=== PATIENT | male | born 1945 | race African-American/Black ===

== ENCOUNTER 2017-03-15 05:15 | Inpatient (IN) ==
[2017-03-15 06:43] LABS: Basophils % 0.2 % (0.0-0.8); Immature Granulocytes % 0.6 %; Lymphocytes # 0.9 10*3/uL (1.4-4.0); Lymphocytes % 4.9 % (21.2-54.2); Mean Corpuscular HGB Conc 34.4 GM/DL (32-36); Mean Corpuscular Hemoglobin 32 PG (27-34); Mean Platelet Volume 9.4 FL (9.6-12.0); Monocytes # 1.2 10*3/uL (0.11-0.8); Monocytes % 6.5 % (1.7-12.7); Neutrophils # 15.5 10*3/uL (1.4-7.4); Neutrophils % 87.8 % (38.7-73.9); Platelet Count 361 T/CUMM (130-400); Red Blood Count 3.48 MC/CUMM (3.8-5.5); Red Cell Distribution Width 13.4 % (9.3-17.3); White Blood Count 17.6 T/CUMM (4-12)
--- NOTE | 2017-03-15 07:01 | XRay Report ---
XR chest 1V portable Indication: Shortness of breath, fever Comparison: None available Findings: The heart and mediastinum are normal in size and configuration. The pulmonary vascularity is normal in caliber. Lung volumes are increased with prominent bronchial markings. No lung infiltrates, effusions, pneumothorax or other abnormality is demonstrated. Impression: Chronic lung changes. No acute process. PROCEDURE INTERPRETED AT [facility] DEPARTMENT OF RADIOLOGY Final Report Signed by: Dr. Dillon Carlisle
--- NOTE | 2017-03-15 07:03 | XRay Report ---
XR foot 2V LT Indication: Gangrene second digit Comparison: None available Findings: Detail limited from osteopenia. No evidence of fracture seen. The alignment of the joints appears normal. No degenerative change is present. No soft tissue abnormality is seen. Impression: No definite evidence of abnormality demonstrated PROCEDURE INTERPRETED AT [facility] DEPARTMENT OF RADIOLOGY Final Report Signed by: Dr. Dillon Carlisle
[2017-03-15 07:15] LABS: Band Neutrophils 1 % (0-10); Hypochromasia 1+; Lymphocytes 5 % (20-55); Microcytosis Slight; Platelet Estimate Normal; Segmented Neutrophils 90 % (50-85); Total Cells Counted 100
[2017-03-15 07:18] LABS: Albumin 2.9 G/DL (3.4-5.0); Bilirubin,Total 2.9 MG/DL (0.2-1.0); Calcium 9.6 MG/DL (8.5-10.1); Osmolality,Calculated 266.7 MOS/KG (273-304); Potassium 4.7 MMOL/L (3.5-5.1); Total Protein 8.2 G/DL (6.4-8.3)
[2017-03-15] MEDS ORDERED: ONDANSETRON 4 MG/2 ML VIAL IV PRN (07:32)
[2017-03-15 08:00] LABS: Risk Ratio 4.44
--- NOTE | 2017-03-15 08:38 | Emergency Department Note ---
Candelario Villela Manpreet, am scribing for, and in the presence of, Devante Frye MD 06:46. Melva Villela Phillip K, MD, personally performed the services described in this documentation, ascribed by Rocky Palomino in my presence, and it is both accurate and complete [id number] . Arrival - Arrival Chief Complaint: Wound/Laceration Stated Complaint: leg and foot. ED Nursing Triage Note: Pt to triage with complaint of wound to lower left leg and infection to 2nd toe on left foot. Pt states that he has been being treating at the [facility] and pt states that they are not doing any good. Pt states that he has been having pain to areas. Toe is noted to be black at time of triage. + pedal pulse noted. Mode of Arrival: Wheelchair Limitations: No Limitations Source: Patient - History of Present Illness HPI Narrative: Pt is a 71 y/o male, with PMHx of HTN and NIDDM, who presents to the ED with CC of wound to left leg and infection to the 2nd toe on the left foot that began August. Pt had a by pass on his right leg in August from which the clamps came off. Pt has no PCP and is being treated at the [facility]. Pt c/p pain to the affected areas and his toe is noted to be black. Pt denies any fever, chills, or Abd pain. No other pains/complaints reported to the ED. Onset (ago): week(s) Consistency: constant Severity: moderate Quality: aching Allergies/Adverse Reactions: Allergies Allergy/AdvReac Type Severity Reaction Status Date / Time rosuvastatin Allergy Unknown Verified 12/07/16 16:29 Home Medications: Home Medications Medication Instructions Recorded Confirmed Type Unable To Obtain [Unable to Obtain] 03/15/17 03/15/17 History Review of System - Review of System 12 point system: reviewed and no additional remarkable complaints except as stated - Review of System Constitutional: Absent: chills, diaphoresis, fever Head/Ears/Nose/Throat: Absent: sore throat Respiratory: Absent: cough, respiratory distress, wheezing Cardiovascular: Absent: chest pain Gastrointestinal: Absent: abdominal pain, nausea, vomiting Skin: Present: other (Wound to left lower leg and infection to second toe on left foot) Neurological: Absent: headache, weakness Medical,Surgical,& Family Hx - Medical History Cardio: History of: Hypertension Endocrine: History of: Diabetes Mellitus (NIDDM) - Social History Smoking Status: Never smoker Frequency of Alcohol Use: None Type of Drug Use: None Exam Vital Signs: Vital Signs Temperature 99.7 F H 03/15/17 05:26 Pulse Rate 107 H 03/15/17 05:26 Respiratory Rate 20 03/15/17 05:26 Blood Pressure 167/84 03/15/17 05:26 O2 Sat by Pulse Oximetry 98 03/15/17 05:26 - General General appearance: alert, in no apparent distress - Head Head exam: Present: atraumatic, normocephalic, normal inspection - Eye Eye exam: Present: normal appearance, PERRL, EOMI - ENT ENT exam: Present: normal exam, normal oropharynx, mucous membranes moist, TM's normal bilaterally - Neck Neck exam: Present: normal inspection, full ROM, trachea midline. Absent: tenderness, thyromegaly - Chest Chest inspection: Present: normal inspection, symmetric chest wall rise. Absent : tenderness - Respiratory Respiratory exam: Present: normal lung sounds bilaterally. Absent: accessory muscle use, rales, respiratory distress - Cardiovascular Cardiovascular exam: Present: normal rhythm, tachycardia, normal heart sounds. Absent: murmur, rubs, gallop - Abdominal Exam Abdominal exam: Present: soft, normal bowel sounds. Absent: distention, tenderness, diminished bowel sounds - Extremities Exam Extremities exam: Absent: normal inspection - Expanded Lower Left Lower Lower leg exam: Present: other (Eschar on left lower leg at medial aspect) Foot/toe exam: Present: other (Gangrene on second toe on left foot, Swollen left foot). Absent: normal inspection - Back Exam Back exam: Present: normal inspection, full ROM. Absent: tenderness - Neurological Exam Neurological exam: Present: alert, oriented X3, CN II-XII intact, reflexes normal - Psychiatric Psychiatric exam: Present: normal affect, normal mood - Skin Skin exam: Present: warm, dry, intact, normal color. Absent: pallor Course Course Narrative: Patient discussed with the hospitalist who will admit for IV antibiotics and surgery consult. Results - Labs CBC & BMP: 03/15/17 06:28 03/15/17 06:28 Lab Results: I have reviewed the patients labs Labs: Laboratory Tests 03/15/17 03/15/17 06:28 06:28 WBC 17.6 H RBC 3.48 L Hgb 11.0 L Hct 32.0 L MCV 92.0 MCH 32 MCHC 34.4 RDW 13.4 Plt Count 361 MPV 9.4 L Neut % (Auto) 87.8 H Lymph % (Auto) 4.9 L Neut # (Auto) 15.5 H Lymph # (Auto) 0.9 L Ransom # (Auto) 1.2 H Segmented Neutrophils 90 H Lymphocytes 5 L Sodium 131 L Potassium 4.7 Chloride 97 L Carbon Dioxide 25 Anion Gap 13.7 BUN 21 H Creatinine 0.90 GFR Calculation 112 BUN/Creatinine Ratio 23.00 H Glucose 128 H Calculated Osmolality 266.7 L Calcium 9.6 Total Bilirubin 2.90 H AST 49 H ALT 19 Alkaline Phosphatase 100 Total Protein 8.2 Albumin 2.9 L Globulin 5.3 H Albumin/Globulin Ratio 0.5 L - Diagnostic Findings Procedure: Chest x-ray: report reviewed by me (Chronic lung changes. No acute process.), X-ray: report reviewed by me (X-ray Foot: No definite evidence of abnormality demonstrated.) Disposition Clinical Impression: Gangrene left second toe, Cellulitis of left lower leg Case discussed with: patient Disposition: Still a Patient Condition: Guarded Additional Instructions: Admit to the hospitalist
[2017-03-15] MEDS ORDERED: CLINDAMYCIN INJ 600 MG in PREMIX 1 EACH IV SCH (09:00)
--- NOTE | 2017-03-15 09:25 | Hospitalist History & Physical ---
<Natacha Monahanda - Last Filed: 03/15/17 09:10> Assessment and Plan (1) Diabetes Status: Acute Assessment and plan: Hemoglobin A1c is noted at 6.7. The patient reports that he currently takes medications however at the time presentation the patient was unable to recall nor had his medications on his person at that time. We will start Accu-Cheks with sliding scale coverage and provide supportive care. Current Visit: Yes Qualifiers: Diabetes mellitus complication detail: with unspecified neuropathy (2) Hypertension Status: Acute Assessment and plan: We will monitor blood pressure closely during the clinical encounter. The patient reports that he is currently on medications for his hypertension however he was unable to recall nor had medications on his person at the time of presentation. We will start low-grade calcium channel gaurav and monitor closely. Current Visit: Yes (3) Cellulitis of left lower leg Status: Acute Assessment and plan: The patient has a large area of eschar noted to the lateral aspect of the left lower leg. In addition, the second digit on the left foot is gangrenous. Pulses are present per Doppler. We have requested a surgical consultation to evaluate. We will obtain wound cultures and start empiric antibiotic coverage. Current Visit: Yes History of Present Illness Chief complaint: Left leg and foot wound History of present illness: This is a chronically ill 71-year-old male that presented to the ED at [facility] this morning for the evaluation of a left leg and foot wound. The patient has a medical history significant for hypertension, non- insulin-dependent diabetes mellitus, and peripheral vascular disease. Patient has surgical history significant for femoral-popliteal bypass to the right leg. The patient reported the onset of symptoms in August of this year. He reported that he was being seen at the [facility] in [place] for the above complaint. He noticed several days prior to presentation that his second digit on his left foot had become deeply discoloration and eventually became painful. This prompted him to present to the ED for further evaluation. The patient was assessed at the time of ED presentation. Patient's blood pressure was noted at 167/84. In addition the patient was mildly tachycardic with a heart rate of 107 and was experiencing a low-grade temperature with a temperature noted at 99.7. Labs were obtained which were significant for white blood cell count is 17.6, hemoglobin 11.0, hematocrit 32.0, sodium 131, BUN 21, glucose 128, hemoglobin A1c 7.0, total bilirubin 2.90, AST 49, albumin 2.9, and HDL cholesterol at 36. Chest x-ray reported chronic lung changes however no acute cardiopulmonary processes were noted. X-ray of the right foot was obtained which was essentially unremarkable for any definitive evidence of abnormality. After brief discussion with both Dr. Blake and , the patient will be admitted to the hospitalist service for continuation of care. Due to the severity of the presenting left leg wound, a surgical evaluation has been requested to evaluate and assist during the clinical encounter. At the time of ED presentation, the patient reported no home medications therefore no home medications have been reconciled. The patient's CODE STATUS has been reviewed and discussed; the patient is a FULL CODE. Home Medications Medication Instructions Recorded Confirmed Type Unable To Obtain [Unable to Obtain] 03/15/17 03/15/17 History Allergies Allergy/AdvReac Type Severity Reaction Status Date / Time rosuvastatin Allergy Unknown Verified 12/07/16 16:29 Medical,Surgical,& Family Hx - Medical History Cardio: History of: Hypertension Endocrine: History of: Diabetes Mellitus (NIDDM) - Social History Smoking Status: Never smoker Frequency of Alcohol Use: None Type of Drug Use: None Exam - Constitutional Vitals: Period Temp Pulse Resp BP Sys/Cho Pulse Ox Last 24 Hr 99.7 F-99.7 F 94-107 18-20 167-191/66-84 97-99 General appearance: normal weight, no acute distress - Head Head exam: Present: normal inspection, normocephalic, atraumatic - Eye Eye exam: Present: EOMI. Absent: conjunctival injection Pupils: Present: NANETTE, normal accommodation - ENT ENT exam: Present: normal exam, normal external ear exam, normal oropharynx - Neck Neck exam: Present: normal inspection. Absent: lymphadenopathy, meningismus, thyromegaly - Respiratory Respiratory exam: Present: clear to auscultation bilaterally. Absent: rales, rhonchi, stridor, wheezes - Cardiovascular Cardiovascular exam: Present: regular rate and rhythm. Absent: carotid bruit, diastolic murmur, gallop, JVD, systolic murmur, other - GI/Abdominal GI/Abdominal exam: Present: normal bowel sounds, soft. Absent: tenderness - Extremities Exam Extremities exam: Present: edema (+2 edema noted to the left lower), other ( Eschar noted to the left lower leg gangrene noted to the; second digit on left foot) - Expanded Left Lower Neuro vascular tendon exam: Present: no vascular compromise - Back Exam Back exam: Present: normal inspection - Neurological Exam Neurological exam: Present: alert, oriented X3, CN II-XII intact - Psychiatric Psychiatric exam: Present: normal affect, normal mood - Skin Skin exam: Present: normal color, warm, dry Results - Labs CBC & BMP: 03/15/17 06:28 03/15/17 06:28 Lab Results: I have reviewed the past 24 hour labs <Shonda Hyatt - Last Filed: 03/15/17 13:31> History of Present Illness History of present illness: Mr. Roberson is a 71 year old male with a history of PVD,DM and HTN who presents with a left leg cellulitis and toe gangrene.Surgery has been consulted. I suspect patient may need some amputation but will defer to surgery.Liver USS showed Cholelithiasis with minimal gallbladder wall thickening which could be related to cholecystitis, patient is asymptomatic so I feel his leg should be addressed first. Patient was seen, examined and discussed with the [employer]PER[employer],I will add IV Vanc and dc clindamycin and continue Zosyn. Tight sugar control, follow Surgery's recommendations. Exam - Constitutional Vitals: Period Temp Pulse Resp BP Sys/Cho Pulse Ox Last 24 Hr 99.5 F-99.7 F 94-107 18-20 154-191/66-84 96-99 Results - Labs CBC & BMP: 03/15/17 06:28 03/15/17 06:28
[2017-03-15] MEDS: SODIUM CHLORIDE 0.9% 1,000 ML IV SCH ×2 (09:33→22:42)
[2017-03-15] MEDS: MORPHINE 2 MG/1 ML SYRINGE IV PRN ×2 (10:48→21:19)
[2017-03-15] MEDS: PIPERACILLIN/TAZOBACTAM 3,375 MG in SODIUM CHLORIDE 0.9% 100 ML IV SCH ×2 (10:49→19:17)
--- NOTE | 2017-03-15 12:23 | Ultrasound Report ---
Exam: US liver Date: 03/15/2017 9:45 AM Comparison: None Indication: Elevated liver function tests Technique:[Multiple transabdominal real-time scans were obtained of the right upper quadrant. Color-flow scans obtained. Ultrasound images were captured and stored.] Findings: Hyperechoic foci in the gallbladder with posterior acoustical shadowing. Some the findings did not appear to move during the exam. The wall of the gallbladder measures 3 mm. CBD measures 4.8 mm with minimally dilated intrahepatic ducts. Right kidney measures 133 mm in length with no hydronephrosis. 35 x 30 x 26 mm midpole simple appearing renal cyst. The visualized pancreas and aorta have an unremarkable appearance. Color-flow documented in the IVC with the aortic bifurcation obscured by bowel gas. Impression: Cholelithiasis with minimal gallbladder wall thickening which could be related to cholecystitis. Biliary scan with ejection fraction may be helpful for further evaluation. CBD is normal in size but some of the intrahepatic ducts appear minimally dilated. ERCP may be helpful for further evaluation. 35 mm simple appearing right midpole renal cyst. PROCEDURE INTERPRETED AT [facility] DEPARTMENT OF RADIOLOGY Final Report Signed by: Dr. Tram Quintero
--- NOTE | 2017-03-15 14:36 | General Surgery Consult Note ---
Assessment and Plan - Time spent with patient Time spent with patient: Greater than 30 minutes (1) Peripheral vascular disease Status: Acute Current Visit: Yes (2) Gangrene of the left lower extremely Status: Acute Assessment and plan: 71-year-old -Niue[place] male with history of diabetes, hypertension, peripheral vascular disease admitted by the hospitalists on 03/15/2017 with increasing pain and difficulty ambulating on his left lower extremity. Patient has dry gangrene of the left second toe and medial calf. There are no signs of infection. Will check ABIs and compare to the ones done in October pre-bypass. Do not recommend surgery at this time because it may worsen and increase his risk for amputation. Will consult physical therapy for gait assessment for assistive device. Also recommend pain control for now. Recommend sending the patient back to his vascular surgeon at [facility] for follow-up. Patient has also been found to have a recent lung mass and liver nodules which could be the reason for his elevated bilirubin. Patient has no abdominal pain, nausea or vomiting that would elicit cholecystectomy. Dr. Montejo has seen and examined patient and will continue to follow. Current Visit: Yes (3) Lung mass Status: Acute Current Visit: Yes (4) Liver nodule Status: Acute Current Visit: Yes (5) Total bilirubin, elevated Status: Acute Current Visit: Yes (6) Diabetes Status: Acute Current Visit: Yes Qualifiers: Diabetes mellitus complication detail: with unspecified neuropathy (7) Hypertension Status: Acute Current Visit: Yes History of Present Illness Chief complaint: Left leg pain History of present illness: Mr. Roberson is a 71 year old -[place]ue[place] male with history of diabetes, hypertension, and PVD admitted by the hospitalist service on 03/15/2017 with left lower extremity pain. Patient was found to have some necrosis to the medial calf and dry gangrene to left second toe. His WBCs are 17.6, and he is also found to have elevated total bilirubin of 2.9. Foot x-ray shows no evidence of abnormality. Liver ultrasound done shows cholelithiasis with minimal gallbladder wall thickening, common bile duct is normal size but intrahepatic ducts minimally dilated. Patient's medical records were reviewed and he had ABIs performed 10/19/2016 that showed aorto iliac and distal occlusive disease with severe loss of flow to both lower extremities. Patient was then referred to [facility] vascular surgeon Dr. Santiago, where he performed a left iliofemoral endarterectomy with patch angioplasty, left iliac stent, harvest of left greater saphenous vein, exploration left peroneal artery, and ligation of left SFA just distal to bifurcation on 11/08/2016. Patient was discharged on Coumadin, a baby aspirin, and Pletal. On patient's preoperative chest x-ray he was found to have a right lung mass. Patient underwent a CT of the chest in December that showed a 2 cm spiculated nodule in the right upper lobe of the lung, an ill-defined density in the right inguinal canal, diffuse gastric wall thickening, hypermetabolic activity in the parotid gland with all of these with questionable neoplasm. PET scan done in November shows the right lung mass along with 2 liver lesions. Patient is being followed at [facility] for this. Upon exam patient is only complaints are of his left lower extremity pain that is increased in the last week to where he is having difficulty walking. He has no complaints of nausea and vomiting, no complaints of abdominal pain, and his abdomen is benign on exam. Dr. Montejo has been consulted to evaluate the left lower extremity and the gallbladder. Home Medications Medication Instructions Recorded Confirmed Type Albuterol Inhaler [Proventil 2 puff INH DAILY 03/15/17 03/15/17 History Inhaler] Alfuzosin [Uroxatral] 10 mg PO QPM 03/15/17 03/15/17 History Atorvastatin [Lipitor] 10 mg PO DAILY 03/15/17 03/15/17 History Cilostazol 50 mg PO DAILY 03/15/17 03/15/17 History Finasteride 5 mg PO DAILY 03/15/17 03/15/17 History Gabapentin 600 mg PO Q8HR 03/15/17 03/15/17 History Hydrocodone/Acetaminophen 1 each PO BID PRN 03/15/17 03/15/17 History [Hydrocodon-Acetaminophn 10-325] Lisinopril 10 mg PO DAILY 03/15/17 03/15/17 History Omeprazole 20 mg PO DAILY 03/15/17 03/15/17 History Sildenafil Citrate [Viagra] 100 mg PO DAILY PRN 03/15/17 03/15/17 History Verapamil HCl [Verapamil ER Cap] 120 mg PO DAILY 03/15/17 03/15/17 History Warfarin [Coumadin] 10 mg PO DIRECTED 03/15/17 03/15/17 History Warfarin [Coumadin] 12.5 mg PO DIRECTED 03/15/17 03/15/17 History buPROPion HCl [Bupropion HCl Sr] 150 mg PO DAILY 03/15/17 03/15/17 History glipiZIDE [Glipizide] 5 mg PO DAILY 03/15/17 03/15/17 History Allergies Allergy/AdvReac Type Severity Reaction Status Date / Time rosuvastatin Allergy Unknown Verified 12/07/16 16:29 Medical,Surgical,& Family Hx - Medical History Cardio: History of: Hypertension Endocrine: History of: Diabetes Mellitus (NIDDM) - Social History Smoking Status: Current some day smoker Frequency of Alcohol Use: None Type of Drug Use: Marijuana - Constitutional Constitutional: Present: as per HPI Exam - Constitutional Vitals: Period Temp Pulse Resp BP Sys/Cho Pulse Ox Last 24 Hr 99.5 F-99.7 F 94-107 18-20 154-191/66-84 96-99 Exam: 71-year-old -Niue[place] male, no acute distress, alert and oriented Poor dentition Chest clear CV regular rate and rhythm Abdomen soft, nontender to palpation Extremities with no edema, left lower extremity with scar from left groin to the ankle, dry gangrene to medial calf and left second toe, no induration or fluctuance, no purulence, minimally tender, Doppler pulses Results - Labs CBC & BMP: 03/15/17 06:28 03/15/17 06:28 Lab Results: I have reviewed the past 24 hour labs - Diagnostic Findings Procedure: Chest x-ray: report reviewed by me (Chronic lung changes. No acute process), Ultrasound: report reviewed by me (Liver ultrasound shows cholelithiasis with minimal gallbladder wall thickening, common bile duct normal size with some intrahepatic duct minimally dilated), X-ray: report reviewed by me (Left foot x-ray shows no abnormality)
[2017-03-15] MEDS ORDERED: DEXTROSE 50% 25 GM/50 ML SYRINGE IV PRN (14:49)
[2017-03-15] MEDS ORDERED: GLUCAGON 1 MG VIAL IM PRN (14:49)
[2017-03-15] MEDS: VANCOMYCIN INJ 1,000 MG in SODIUM CHLORIDE 0.9% 250 ML IV SCH (16:14)
[2017-03-15] MEDS: INSULIN LISPRO 100 UNIT/ML SUBCUT SCH (18:26)
[2017-03-15] MEDS: CARVEDILOL 6.25 MG TABLET PO SCH (21:20)
[2017-03-16] MEDS: VANCOMYCIN INJ 1,000 MG in SODIUM CHLORIDE 0.9% 250 ML IV SCH ×2 (04:17→17:05)
[2017-03-16 05:26] LABS: Basophils % 0.2 % (0.0-0.8); Hematocrit 28.3 VOL% (42.0-52.0); Hemoglobin 9.6 GM/DL (14.0-18.0); Immature Granulocytes % 0.6 %; Immature Granulocytes Absolute 0.11 #; Lymphocytes # 1.9 10*3/uL (1.4-4.0); Lymphocytes % 9.8 % (21.2-54.2); Mean Corpuscular HGB Conc 33.9 GM/DL (32-36); Mean Corpuscular Hemoglobin 31 PG (27-34); Mean Corpuscular Volume 91.6 FL (87-102); Mean Platelet Volume 9.5 FL (9.6-12.0); Monocytes # 1.5 10*3/uL (0.11-0.8); Monocytes % 7.8 % (1.7-12.7); Neutrophils # 15.7 10*3/uL (1.4-7.4); Neutrophils % 81.6 % (38.7-73.9); Platelet Count 355 T/CUMM (130-400); Red Blood Count 3.09 MC/CUMM (3.8-5.5); Red Cell Distribution Width 13.3 % (9.3-17.3); White Blood Count 19.2 T/CUMM (4-12)
[2017-03-16] MEDS: PIPERACILLIN/TAZOBACTAM 3,375 MG in SODIUM CHLORIDE 0.9% 100 ML IV SCH ×3 (05:45→21:09)
[2017-03-16 05:55] LABS: Albumin 2.3 G/DL (3.4-5.0); Bilirubin,Total 1.7 MG/DL (0.2-1.0); Magnesium 2.5 MG/DL (1.8-2.4); Osmolality,Calculated 270.2 MOS/KG (273-304); Potassium 3.8 MMOL/L (3.5-5.1); Total Protein 6.6 G/DL (6.4-8.3)
--- NOTE | 2017-03-16 08:16 | XRay Report ---
XR chest 1V portable Indication: Shortness of breath Comparison: 15 March 2017 Findings: The heart and mediastinum are normal in size and configuration. The pulmonary vascularity is normal in caliber. No lung infiltrates, effusions, pneumothorax or other abnormality is demonstrated. Impression: No acute cardiopulmonary disease. PROCEDURE INTERPRETED AT [facility] DEPARTMENT OF RADIOLOGY Final Report Signed by: Dr. Dillon Carlisle
[2017-03-16] MEDS: INSULIN LISPRO 100 UNIT/ML SUBCUT SCH ×2 (08:18→17:05)
[2017-03-16] MEDS: CARVEDILOL 6.25 MG TABLET PO SCH (08:19)
[2017-03-16] MEDS ORDERED: LISINOPRIL 20 MG TABLET PO SCH (09:00)
--- NOTE | 2017-03-16 10:38 | Hospitalist Progress Note ---
Assessment and Plan (1) Diabetes Status: Chronic Assessment and plan: On glipizide only. Current Visit: Yes Qualifiers: Diabetes mellitus type: type 2 Diabetes mellitus complication detail: with unspecified neuropathy (2) Peripheral vascular disease Status: Chronic Assessment and plan: Remote revascularization of the right lower extremity with recent revascularization attempt in the left lower extremity. Development of dry gangrene on the left side. Current Visit: Yes (3) Lung mass Status: Acute Assessment and plan: Positive PET scan. Lesion highly suggestive of malignancy. Current Visit: Yes Hospitalist: Subjective Interval history: 71-year-old male diabetic with atherosclerosis with remote right-sided lower extremity revascularization in 2006. He developed recurrent symptoms earlier this year and was found to have occlusion on both sides. It appears as though he was sent to [facility] where revascularization of the left lower extremity was attempted. He presented to the emergency room here with increasing pain and skin loss in the left lower extremity. He shows evidence of infection as manifest by hyperglobulinemia leukocytosis and elevated bilirubin level. His maximum temperature overnight was 100.9. There is been no hemodynamic instability. Surgery consult indicates that in addition to the vascular procedure done at [facility] imaging demonstrated a right upper lobe 2 cm lung mass with increased metabolic activity on PET scan as well as an hepatic site and in the area of the parotid glands. Status of this workup is unclear at this time. Exam - Constitutional Vitals: Period Temp Pulse Resp BP Sys/Cho Pulse Ox Last 24 Hr 98.2 F-100.9 F 82-97 18-20 135-166/66-76 95-98 General appearance: normal weight - Neck Neck exam: Absent: lymphadenopathy, thyromegaly - Respiratory Respiratory exam: Present: clear to auscultation bilaterally. Absent: rales, rhonchi, wheezes - Cardiovascular Cardiovascular exam: Present: carotid bruit (Bilateral), regular rate and rhythm - GI/Abdominal GI/Abdominal exam: Present: normal bowel sounds, other (No dilatation of the abdominal aorta). Absent: organomegaly, tenderness - Extremities Exam Extremities exam: Present: other (Dry gangrene left lower extremity). Absent: edema - Neurological Exam Neurological exam: Present: alert, oriented X3 Results - Labs CBC & BMP: 03/16/17 04:50 03/16/17 04:50 Labs: Total bilirubin 1.7 Admitting globulin 5.3 - Diagnostic Findings Procedure: Chest x-ray: image reviewed by me (Aortic ectasia reticular fibrosis. ), Ultrasound: report reviewed by me (Cholelithiasis without significant wall thickening)
[2017-03-16 11:49] LABS: INR 1.5; PT Patient Result 16.3 SECS
[2017-03-16] MEDS: VERAPAMIL SR 120 MG TABLET PO SCH (13:15)
[2017-03-16] MEDS: GABAPENTIN 600 MG TABLET PO SCH ×2 (13:45→21:09)
--- NOTE | 2017-03-16 14:04 | General Surgery Progress Note ---
Assessment and Plan (1) Gangrene of the left lower extremely Status: Acute Assessment and plan: This is a chronic issue with tissue loss and rest pain. The patient's vascular surgeon is aware of his current condition and we have repeated some ABIs that confirmed critical limb ischemia but there is in no acute trouble that the patient is in and there is no need for acute intervention. Because of this and because the patient already has a surgeon following him I recommend to the patient that he follows up with the surgeon after discharge. We will be available to take care of any issues whatsoever that arise that require acute treatment but I do not see anything like this that requires attention currently. I will follow-up with the patient Sunday if he still here but if he goes home over the weekend he can follow-up with his vascular surgeon as an outpatient. Current Visit: Yes Subjective Patient reports: Present: no new complaints, feels better, still having pain, afebrile Exam - Constitutional Vitals: Period Temp Pulse Resp BP Sys/Cho Pulse Ox Last 24 Hr 98.1 F-100.9 F 78-97 18-20 135-166/66-76 95-98 General appearance: normal weight, no acute distress - Head Head exam: Present: normal inspection, normocephalic - Eye Eye exam: Present: EOMI. Absent: scleral icterus Pupils: Present: NANETTE - ENT ENT exam: Present: normal exam Mouth exam: Present: normal external inspection, normal voice - Neck Neck exam: Present: normal inspection, trachea midline - Respiratory Respiratory exam: Present: clear to auscultation bilaterally. Absent: accessory muscle use, chest wall tenderness - Cardiovascular Cardiovascular exam: Present: RRR. Absent: systolic murmur, tachycardia - GI/Abdominal GI/Abdominal exam: Present: soft. Absent: tenderness, rebound - Extremities Exam Extremities exam: Present: other (No changes from yesterday.) - Back Exam Back exam: Present: normal inspection - Neurological Exam Neurological exam: Present: alert, oriented X3 Speech: Present: normal Results - Labs CBC & BMP: 03/16/17 04:50 03/16/17 04:50
[2017-03-16] MEDS: SODIUM CHLORIDE 0.9% 1,000 ML IV SCH (15:31)
[2017-03-16] MEDS: WARFARIN 5 MG TABLET PO SCH (17:06)
[2017-03-17 02:35] LABS: INR 1.4; PT Patient Result 15.5 SECS
[2017-03-17] MEDS: VANCOMYCIN INJ 1,000 MG in SODIUM CHLORIDE 0.9% 250 ML IV SCH ×2 (04:40→17:20)
[2017-03-17] MEDS: SODIUM CHLORIDE 0.9% 1,000 ML IV SCH ×2 (04:42→21:38)
[2017-03-17] MEDS: GABAPENTIN 600 MG TABLET PO SCH ×3 (06:30→21:35)
[2017-03-17] MEDS: PIPERACILLIN/TAZOBACTAM 3,375 MG in SODIUM CHLORIDE 0.9% 100 ML IV SCH ×3 (06:30→21:35)
[2017-03-17] MEDS: INSULIN LISPRO 100 UNIT/ML SUBCUT SCH ×3 (08:06→17:05)
[2017-03-17] MEDS: PANTOPRAZOLE 40 MG TABLET PO SCH (08:08)
[2017-03-17] MEDS: ATORVASTATIN 10 MG TABLET PO SCH (08:08)
[2017-03-17] MEDS: CILOSTAZOL 100 MG TABLET PO SCH (08:08)
[2017-03-17] MEDS: VERAPAMIL SR 120 MG TABLET PO SCH (08:08)
[2017-03-17] MEDS: LISINOPRIL 10 MG TABLET PO SCH (08:08)
[2017-03-17] MEDS: FINASTERIDE 5 MG TABLET PO SCH (08:08)
[2017-03-17] MEDS: buPROPion SR 150 MG TABLET PO SCH (08:08)
--- NOTE | 2017-03-17 08:42 | Hospitalist Progress Note ---
Assessment and Plan (1) Diabetes Status: Chronic Assessment and plan: On glipizide only. Current Visit: Yes Qualifiers: Diabetes mellitus type: type 2 Diabetes mellitus complication detail: with unspecified neuropathy (2) Peripheral vascular disease Status: Chronic Assessment and plan: Remote revascularization of the right lower extremity with recent revascularization attempt in the left lower extremity. Development of dry gangrene on the left side. Current Visit: Yes (3) Lung mass Status: Acute Assessment and plan: Positive PET scan. Lesion highly suggestive of malignancy. Evaluation done at [facility]. Current Visit: Yes Hospitalist: Subjective Interval history: 71-year-old male diabetes with extensive atherosclerosis with remote right sided lower extremity revascularization. He developed recurrent symptoms earlier this year and was found to have occlusion on both sides with attempted revascularization at [facility]. He has had progressive pain in the left lower extremity with dry gangrene and calf tissue loss. He arterial Doppler showed critical limb ischemic pattern. The patient is frustrated with [facility] and at this time describes a desire to simply have a leg amputated. He has had no further temperature elevation since 15 March. Exam - Constitutional Vitals: Period Temp Pulse Resp BP Sys/Cho Pulse Ox Last 24 Hr 97.8 F-98.9 F 75-83 18-19 112-155/55-73 91-99 - Respiratory Respiratory exam: Present: clear to auscultation bilaterally. Absent: rales, rhonchi, wheezes - Cardiovascular Cardiovascular exam: Present: regular rate and rhythm - Extremities Exam Extremities exam: Present: other (Dry gangrene with left calf tissue loss) - Neurological Exam Neurological exam: Present: alert, oriented X3 Results - Labs CBC & BMP: 03/16/17 04:50 03/16/17 04:50 Labs: INR 1.4
[2017-03-17] MEDS: MORPHINE 2 MG/1 ML SYRINGE IV PRN ×2 (15:35→21:39)
[2017-03-17] MEDS: WARFARIN 5 MG TABLET PO SCH (17:20)
[2017-03-18] MEDS: VANCOMYCIN INJ 1,000 MG in SODIUM CHLORIDE 0.9% 250 ML IV SCH ×2 (04:25→17:08)
[2017-03-18] MEDS: PIPERACILLIN/TAZOBACTAM 3,375 MG in SODIUM CHLORIDE 0.9% 100 ML IV SCH ×3 (05:53→20:08)
[2017-03-18] MEDS: GABAPENTIN 600 MG TABLET PO SCH ×3 (05:57→21:00)
[2017-03-18 06:33] LABS: Basophils % 0.2 % (0.0-0.8); Eosinophils % 0.2 % (0.00-10.9); Hematocrit 25.8 VOL% (42.0-52.0); Hemoglobin 8.6 GM/DL (14.0-18.0); Immature Granulocytes % 0.7 %; Immature Granulocytes Absolute 0.15 #; Lymphocytes # 2.1 10*3/uL (1.4-4.0); Lymphocytes % 9.9 % (21.2-54.2); Mean Corpuscular HGB Conc 33.3 GM/DL (32-36); Mean Corpuscular Hemoglobin 31 PG (27-34); Mean Corpuscular Volume 94.2 FL (87-102); Mean Platelet Volume 9.4 FL (9.6-12.0); Monocytes # 1.8 10*3/uL (0.11-0.8); Monocytes % 8.1 % (1.7-12.7); Neutrophils # 17.4 10*3/uL (1.4-7.4); Neutrophils % 80.9 % (38.7-73.9); Platelet Count 378 T/CUMM (130-400); Red Blood Count 2.74 MC/CUMM (3.8-5.5); Red Cell Distribution Width 13.8 % (9.3-17.3); White Blood Count 21.5 T/CUMM (4-12)
[2017-03-18 06:46] LABS: INR 1.6; PT Patient Result 17.4 SECS
[2017-03-18 07:40] LABS: Hypochromasia 1+; Lymphocytes 11 % (20-55); Microcytosis Slight; Platelet Estimate Adequate; Segmented Neutrophils 79 % (50-85); Total Cells Counted 100
[2017-03-18] MEDS: buPROPion SR 150 MG TABLET PO SCH (08:11)
[2017-03-18] MEDS: PANTOPRAZOLE 40 MG TABLET PO SCH (08:11)
[2017-03-18] MEDS: LISINOPRIL 10 MG TABLET PO SCH (08:11)
[2017-03-18] MEDS: INSULIN LISPRO 100 UNIT/ML SUBCUT SCH ×2 (08:11→16:06)
[2017-03-18] MEDS: ATORVASTATIN 10 MG TABLET PO SCH (08:11)
[2017-03-18] MEDS: CILOSTAZOL 100 MG TABLET PO SCH (08:11)
[2017-03-18] MEDS: VERAPAMIL SR 120 MG TABLET PO SCH (08:12)
[2017-03-18] MEDS: FINASTERIDE 5 MG TABLET PO SCH (08:12)
--- NOTE | 2017-03-18 14:01 | Hospitalist Progress Note ---
Assessment and Plan - Time spent with patient Time spent with patient: Greater than 30 minutes (Pt is new to me. I reviewed pt 's chart, labs and images study reports and images. I discussed with pt and our staff counsel in regarding his clinical status today.) (1) Gangrene of the left lower extremely Status: Acute Assessment and plan: Surgery f/u. Continue IV VCN and Zosyn. Current Visit: Yes (2) Peripheral vascular disease Status: Chronic Assessment and plan: Had revasculation at [facility] before but pt is not satisfied with [facility] Current Visit: Yes (3) Lung mass Status: Acute Assessment and plan: CT chest in am then consult Pulm in am. Request OSH record. Current Visit: Yes (4) Diabetes Status: Chronic Assessment and plan: Continue current treatment plan. Current Visit: Yes Qualifiers: Diabetes mellitus type: type 2 Diabetes mellitus complication detail: with unspecified neuropathy (5) Hypertension Status: Acute Assessment and plan: Continue current treatment plan. Current Visit: Yes Hospitalist: Subjective Interval history: 03/18/17: No overnight acute event, Eating well. No fever in past 3 days. Surgery f/u for left side dry gangrene, has lung mass reported based on OSH pet scan. Will do CT chest and consult Pulm due to lung mass in am. Will also obtain OSH medical record (from [facility] in [place], [place] first). Interval history: 71-year-old male diabetes with extensive atherosclerosis with remote right sided lower extremity revascularization. He developed recurrent symptoms earlier this year and was found to have occlusion on both sides with attempted revascularization at [facility]. He has had progressive pain in the left lower extremity with dry gangrene and calf tissue loss. He arterial Doppler showed critical limb ischemic pattern. The patient is frustrated with [facility] and at this time describes a desire to simply have a leg amputated. He has had no further temperature elevation since 15 March. Exam - Constitutional Vitals: Period Temp Pulse Resp BP Sys/Cho Pulse Ox Last 24 Hr 98.3 F-99.8 F 75-85 18-18 136-164/54-75 96-99 Exam: General: Sitting in bed and eating lunch HEENT: AT [facility] EOMI, normal lips and gum Heart: +S1/S2, RRR Lungs: B/L CTA ABD: +BS NT ND Skin: Left foot/ankle covered by dressing. Neuro: AAOx3 Results - Labs CBC & BMP: 03/18/17 05:13 03/16/17 04:50
[2017-03-18] MEDS: WARFARIN 5 MG TABLET PO SCH (17:08)
[2017-03-18] MEDS: MORPHINE 2 MG/1 ML SYRINGE IV PRN (20:05)
[2017-03-18] MEDS: SODIUM CHLORIDE 0.9% 1,000 ML IV SCH (20:12)
[2017-03-19] MEDS: MORPHINE 2 MG/1 ML SYRINGE IV PRN (02:51)
[2017-03-19] MEDS: VANCOMYCIN INJ 1,000 MG in SODIUM CHLORIDE 0.9% 250 ML IV SCH ×3 (04:18→18:15)
[2017-03-19] MEDS: GABAPENTIN 600 MG TABLET PO SCH ×3 (06:28→21:09)
[2017-03-19] MEDS: PIPERACILLIN/TAZOBACTAM 3,375 MG in SODIUM CHLORIDE 0.9% 100 ML IV SCH (06:28)
[2017-03-19 07:00] LABS: Basophils # 0.1 10*3/uL (0.0-0.2); Basophils % 0.2 % (0.0-0.8); Eosinophils % 0.1 % (0.00-10.9); Hematocrit 26.6 VOL% (42.0-52.0); Hemoglobin 8.7 GM/DL (14.0-18.0); Immature Granulocytes % 0.9 %; Immature Granulocytes Absolute 0.18 #; Lymphocytes # 1.7 10*3/uL (1.4-4.0); Mean Corpuscular HGB Conc 32.7 GM/DL (32-36); Mean Corpuscular Hemoglobin 30 PG (27-34); Mean Corpuscular Volume 92.7 FL (87-102); Mean Platelet Volume 9.4 FL (9.6-12.0); Monocytes # 1.6 10*3/uL (0.11-0.8); Monocytes % 7.6 % (1.7-12.7); Neutrophils # 17.1 10*3/uL (1.4-7.4); Neutrophils % 83.2 % (38.7-73.9); Platelet Count 424 T/CUMM (130-400); Red Blood Count 2.87 MC/CUMM (3.8-5.5); Red Cell Distribution Width 13.7 % (9.3-17.3); White Blood Count 20.6 T/CUMM (4-12)
--- NOTE | 2017-03-19 07:22 | CT Report ---
CT chest wo/w con Indication: Lung nodule. CT CHEST WITH AND WITHOUT CONTRAST DLP: 585 mGy*cm. One or more of the following dose reduction techniques was used: Automated exposure control, adjustment of the mA and/or kV according the patient size, or use of iterative reconstruction techniques. Comparison: 11/03/2016 Technique: Axial CT images of the chest were obtained before and after the IV administration of Omnipaque 350, 80 cc. Findings: Normal heart size. Subcentimeter mediastinal lymph nodes are stable. Calcified atheromatous disease the aorta is stable. No dissection or aneurysm. Coronary artery calcifications persist, significant. Trace pericardial effusion is stable. 12 mm spiculated pulmonary nodule right upper lobe previously measured 11 mm. This indicates relative stability. Calcified granuloma at the base of the lingula is unchanged. Lungs are otherwise clear. Pleural spaces are clear. No pathologically enlarged hilar or axillary lymph nodes. Limited views of the upper abdomen show continued calcified atheromatous disease and cystic changes to the right kidney. Calcified gallstones again noted as well. Vascular blush within the liver measuring up 6 mm diameter is too small to further characterize. Distal pancreatic duct is dilated at 14 mm diameter. This dilation is stable. Transition between the dilated and nondilated segments of the pancreatic duct is noted where some mild soft tissue fullness of the tail of the pancreas is present, 18 mm in diameter. This is also unchanged. Impression: 1. Stable 12 mm spiculated pulmonary nodule right upper lobe. 2. Dilated distal pancreatic duct with a transition point mid pancreatic tail. At the transition, there is soft tissue fullness, 18 mm diameter, stable since October. Consider a MRI of the pancreas for better characterization to exclude underlying pancreatic mass. 3. Extensive calcified atheromatous disease. Prior granulomatous disease. 4. Calcified gallstones. 5. 6 mm vascular blush in the right liver lobe, too small to further characterize. This finding is stable when compared to previous exam. 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 Comment: Study was performed as ordered by clinician, "with and without contrast", not the appropriate exam for this case. ACR appropriateness criteria supports "CT chest with contrast" only, to minimize radiation exposure. Please call with questions. PROCEDURE INTERPRETED AT [facility] DEPARTMENT OF RADIOLOGY Final Report Signed by: Des Jimenez M.D.
[2017-03-19 07:26] LABS: Hypochromasia 1+; Lymphocytes 7 % (20-55); Platelet Estimate Increased; Segmented Neutrophils 88 % (50-85); Total Cells Counted 100
[2017-03-19 07:32] LABS: Calcium 8.6 MG/DL (8.5-10.1)
[2017-03-19 07:33] LABS: Osmolality,Calculated 269.2 MOS/KG (273-304); Potassium 3.9 MMOL/L (3.5-5.1)
[2017-03-19] MEDS: ATORVASTATIN 10 MG TABLET PO SCH (09:37)
[2017-03-19] MEDS: LISINOPRIL 10 MG TABLET PO SCH (09:37)
[2017-03-19] MEDS: PANTOPRAZOLE 40 MG TABLET PO SCH (09:37)
[2017-03-19] MEDS: VERAPAMIL SR 120 MG TABLET PO SCH (09:37)
[2017-03-19] MEDS: CILOSTAZOL 100 MG TABLET PO SCH (09:37)
[2017-03-19] MEDS: buPROPion SR 150 MG TABLET PO SCH (09:37)
[2017-03-19] MEDS: INSULIN LISPRO 100 UNIT/ML SUBCUT SCH ×2 (09:38→16:50)
[2017-03-19] MEDS: FINASTERIDE 5 MG TABLET PO SCH (09:38)
--- NOTE | 2017-03-19 10:00 | Pulmonology Consult Note ---
History of Present Illness Chief complaint: Right upper lung chest mass. COPD. Gangrene L LE History of present illness: Mr. Roberson is a 71 year old black male whom I been asked to see in pulmonary consultation for evaluation and treatment. This patient is admitted to the hospital with ischemic left lower extremity. He has gangrene and he is asked for an amputation. He is previously been taking care of [facility] I been asked to see this patient concerning an abnormal PET scan. PET scan done December 11, 2016 showed 1. Hypermetabolic 2 cm spiculated nodule in the right upper lung. This corresponds to the finding described on outside CT and is concerning for neoplastic process 2. Surgical changes in the left groin consistent with a seroma. Metabolic activity in the region. 3. Ill-defined density in the opening of the right inguinal canal. Scarring versus inflammation. Cannot exclude neoplasm 4. Nonspecific diffuse sclerosis in the left femoral head and neck. Could be degenerative change, avascular necrosis or Paget's disease. Neoplastic process cannot be excluded. 5. Diffuse gastric wall thickening. Confirmation or exclusion of gastritis or neoplasm in this region was difficult due to background gastric activity. 6. Mild asymmetric hypermetabolic activity in the right parotid gland. This PET scan was ordered from the hospital in [place]. Patient is not a good historian. He says nothing has been done about this area. He notes attention is been focused on his left leg and foot The patient has an occasional cough and he has occasional sputum production. He denies hemoptysis. He has had no true syncope or seizures. He denies cardiac angina. He has gangrene of his left lower extremity and he is concentrating on this area. The remainder the review of systems is negative. Allergies. rosuvastatin Medicines. See below Past history. Diabetes. Chronic Coumadin therapy. High blood pressure. Hyperlipidemia. Bronchospastic disease Social history. Followed at the [facility]. Denies alcohol. Denies drugs. Started smoking when he was 14 years old and said he quit in 2006. Family history. Positive for high blood pressure and diabetes CT of the chest. 03/15/2017. Compared to a study done 11/03/2016. 1. Stable 12 mm spiculated pulmonary nodule right upper lung. 2. Dilated distal pancreatic duct with a transition point mid pancreatic tail. At the transition there is a soft tissue fullness. This is 18 mm in diameter and stable compared to October 2016. Consider MRI of the pancreas for better characterization to exclude underlying pancreatic mass 3. Extensive calcified atheromatous disease. Prior granulomatous disease. 4. Calcified gallstones 5. 6 mm vascular brush in the right liver. Too small to further characterize. A stable finding Microbiology. No positive cultures. Lab. White count is 20,600 with 83 segs. H&H is 8.7/26.6. Creatinine is 0.60 with a BUN of 7 electrolytes are normal. Calcium is normal. Vancomycin trough level is 9.5 is being managed by pharmacology. Hemoglobin A1c is 7. Total bilirubin has been as high as 2.90 and was last checked at 1.70. Transaminases and alkaline Sally is normal. Total protein is normal globulins elevated 4.3 and albumin is low at 2.3. INR is 1.6. Physical exam. Vital signs. See below Psychiatric. Oriented 3. Very poor historian. Patient did not have a lot of attempt to cooperate. Face. Symmetrical. No edema of the lips and tongue. Neck. No meningismus. Thyroid was not palpated Chest. Hyperinflated with prolonged expiration. No chest wall tenderness. Heart. No gallop Abdomen nondistended. Bowel sounds are present Left lower extremity is gangrenous. See surgical note. Neurologic. Cranial nerves are intact. Patient moves all 4 extremities. The remainder the physical exam is noncontributory. Impression. 1. 12 mm right upper lung lesion stable by CT criteria since October 2016. December 2016 PET scan ordered by [facility] shows activity suggestive of cancer 2. Significant past history tobacco abuse 3. COPD 4. Peripheral artery disease 5. Gangrene left lower extremity 6. Diabetes mellitus. #7 anemia 8. High blood pressure 9. Gallstones #10 question pancreatic mass. See CT. 11. See past history 12. Plan. [facility]. [facility] Will review when available 2. Sputum for cytology daily 3 days 3. Patient requires anticoagulation. I do not plan any biopsies in the near future as he has more acute problems. Home Medications Medication Instructions Recorded Confirmed Type Albuterol Inhaler [Proventil 2 puff INH DAILY 03/15/17 03/15/17 History Inhaler] Alfuzosin [Uroxatral] 10 mg PO QPM 03/15/17 03/15/17 History Atorvastatin [Lipitor] 10 mg PO DAILY 03/15/17 03/15/17 History Cilostazol 50 mg PO DAILY 03/15/17 03/15/17 History Finasteride 5 mg PO DAILY 03/15/17 03/15/17 History Gabapentin 600 mg PO Q8HR 03/15/17 03/15/17 History Hydrocodone/Acetaminophen 1 each PO BID PRN 03/15/17 03/15/17 History [Hydrocodon-Acetaminophn 10-325] Lisinopril 10 mg PO DAILY 03/15/17 03/15/17 History Omeprazole 20 mg PO DAILY 03/15/17 03/15/17 History Sildenafil Citrate [Viagra] 100 mg PO DAILY PRN 03/15/17 03/15/17 History Verapamil HCl [Verapamil ER Cap] 120 mg PO DAILY 03/15/17 03/15/17 History Warfarin [Coumadin] 10 mg PO DIRECTED 03/15/17 03/15/17 History Warfarin [Coumadin] 12.5 mg PO DIRECTED 03/15/17 03/15/17 History buPROPion HCl [Bupropion HCl Sr] 150 mg PO DAILY 03/15/17 03/15/17 History glipiZIDE [Glipizide] 5 mg PO DAILY 03/15/17 03/15/17 History Allergies Allergy/AdvReac Type Severity Reaction Status Date / Time rosuvastatin Allergy Unknown Verified 12/07/16 16:29 Exam ([facility]) H&P - Constitutional Vitals: Period Temp Pulse Resp BP Sys/Cho Pulse Ox Last 24 Hr 96.9 F-100.4 F 79-88 18-20 136-184/63-76 94-96 Medical,Surgical,& Family Hx - Medical History Cardio: History of: Hypertension Endocrine: History of: Diabetes Mellitus (NIDDM) - Social History Smoking Status: Current some day smoker Frequency of Alcohol Use: None Type of Drug Use: Marijuana Results - Labs CBC & BMP: 03/19/17 06:15 03/19/17 06:15
--- NOTE | 2017-03-19 13:03 | Infectious Disease Consult ---
Assessment and Plan (1) Cellulitis of left lower leg Status: Acute Assessment and plan: Patient says severe leukocytosis and no wheeze no that he has positive blood cultures. Antibiotic therapy as below. Current Visit: Yes (2) Gangrene of the left lower extremely Status: Acute Assessment and plan: I think patient will need amputation ultimately. Current Visit: Yes (3) Hypertension Status: Acute Current Visit: Yes (4) Diabetes Status: Chronic Current Visit: Yes Qualifiers: Diabetes mellitus type: type 2 Diabetes mellitus complication detail: with unspecified neuropathy (5) Peripheral vascular disease Status: Chronic Assessment and plan: Severe with continued ischemic changes of that left leg even though he had revascularization surgery. I think BKA be inevitable, if not AKA. Current Visit: Yes (6) Septicemia Status: Acute Assessment and plan: Patient has polymicrobial septicemia with gram-positive rods and gram-negative rods isolated from blood cultures done on admission. He did have intermittent fever since admission and he has had persistent leukocytosis, worse since admission, on Zosyn and vancomycin. Source of the infection is likely that left leg wound with cellulitis. Recommendations: 1. Will escalate from Zosyn to meropenem in light of the worsening leukocytosis 2. Continue vancomycin 3. Repeat blood cultures today 4. Follow-up results of the organisms in the blood cultures from admission 5. Patient ultimately will need amputation of that left leg. Thank you very much for the consult. Will follow. Current Visit: Yes History of Present Illness Chief complaint: Left foot gangrene History of present illness: Mr. Roberson is a 71 year old male with severe peripheral vascular disease who had revascularization surgery to the left leg this past August at the [facility] in [place]. He says since about this past November he started having darkening of the foot and he developed a wound to the medial aspect of the leg. These wounds have progressed and now his left third toe is dry with gangrene. He says he visited the [facility] hospital emergency room several 15 then and now but he keeps getting appointments for follow-up with surgery. He says he has severe pain in his left foot extending up the extremity to his groin, worse at night. He presented to this hospital to try to get some help for his leg as he is not getting any help at the [facility]. patient noted to have intermittent low-grade fever while here, up 100.9, but no other constitutional symptoms. I am asked to assist with management of antibiotics. Home Medications Medication Instructions Recorded Confirmed Type Albuterol Inhaler [Proventil 2 puff INH DAILY 03/15/17 03/15/17 History Inhaler] Alfuzosin [Uroxatral] 10 mg PO QPM 03/15/17 03/15/17 History Atorvastatin [Lipitor] 10 mg PO DAILY 03/15/17 03/15/17 History Cilostazol 50 mg PO DAILY 03/15/17 03/15/17 History Finasteride 5 mg PO DAILY 03/15/17 03/15/17 History Gabapentin 600 mg PO Q8HR 03/15/17 03/15/17 History Hydrocodone/Acetaminophen 1 each PO BID PRN 03/15/17 03/15/17 History [Hydrocodon-Acetaminophn 10-325] Lisinopril 10 mg PO DAILY 03/15/17 03/15/17 History Omeprazole 20 mg PO DAILY 03/15/17 03/15/17 History Sildenafil Citrate [Viagra] 100 mg PO DAILY PRN 03/15/17 03/15/17 History Verapamil HCl [Verapamil ER Cap] 120 mg PO DAILY 03/15/17 03/15/17 History Warfarin [Coumadin] 10 mg PO DIRECTED 03/15/17 03/15/17 History Warfarin [Coumadin] 12.5 mg PO DIRECTED 03/15/17 03/15/17 History buPROPion HCl [Bupropion HCl Sr] 150 mg PO DAILY 03/15/17 03/15/17 History glipiZIDE [Glipizide] 5 mg PO DAILY 03/15/17 03/15/17 History Allergies Allergy/AdvReac Type Severity Reaction Status Date / Time rosuvastatin Allergy Unknown Verified 12/07/16 16:29 12 point system: reviewed and no additional remarkable complaints except as stated (Per HPI) Medical,Surgical,& Family Hx - Medical History Cardio: History of: Hypertension Endocrine: History of: Diabetes Mellitus (NIDDM) - Social History Smoking Status: Current some day smoker Frequency of Alcohol Use: None Type of Drug Use: Marijuana Infectious Disease Exam H&P - Constitutional Vitals: Vital Signs Temp Pulse Resp BP Pulse Ox 99.2 F 62 18 173/81 98 03/19/17 11:59 03/19/17 11:59 03/19/17 11:59 03/19/17 11:59 03/19/17 11:59 Intake and Output 03/18/17 03/19/17 03/19/17 23:59 07:59 15:59 Intake Total 470 / 470 470 / 470 100 / 100 Output Total 700 / 700 600 / 600 Balance -230 / -230 -130 / -130 100 / 100 Intake: IV 350 / 350 350 / 350 100 / 100 Zosyn 3,375 mg In Ns 100 100 / 100 100 / 100 100 / 100 ml @ 25 mls/hr IV Q8H DIANA Rx#:[id number] Vancomycin Inj 1,000 mg 250 / 250 250 / 250 In Ns 250 ml @ 250 mls/hr IV Q12H [facility]IA[facility] Rx#: [id number] Oral 120 / 120 120 / 120 Output: Urine 700 / 700 600 / 600 Other: Voiding Method Urinal Incontinent # Bowel Movements 0 0 Exam: General: Patient relatively comfortable, nontoxic. HEENT: Mucous membranes pink and moist, anicteric acyanotic, NANETTE, no oral exudates Neck: Supple, no thyroid gland enlargement Respiratory system: Breath sounds vesicular, no crepitations or wheezes Cardiovascular: Normal S1 and S2, no murmurs appreciated Abdomen: Normal bowel sounds, soft nontender throughout, no organomegaly or mass Genitourinary: No suprapubic pain or bladder distention Extremities: Mild left lower extremity edema, the left foot is hyperpigmented and cold, of the left second toe is dry and gangrenous, there is a large ulceration to the medial aspect of the left leg with overlying scab but there is a raw area where the scab has come off, no drainage of pus. The entire extremity is a bit cool to touch. Skin: No rash Reports - Labs CBC & BMP: 03/19/17 06:15 03/19/17 06:15 Labs: Laboratory Results - last 24 hr 03/18/17 03/18/17 03/19/17 15:03 19:24 06:15 WBC 20.6 H RBC 2.87 L Hgb 8.7 L Hct 26.6 L MCV 92.7 MCH 30 MCHC 32.7 RDW 13.7 Plt Count 424 H MPV 9.4 L Neut % (Auto) 83.2 H Lymph % (Auto) 8.0 L Kerr % (Auto) 7.6 Eos % (Auto) 0.1 Baso % (Auto) 0.2 Neut # (Auto) 17.1 H Lymph # (Auto) 1.7 Kerr # (Auto) 1.6 H Eos # (Auto) 0.0 Baso # (Auto) 0.1 Total Counted 100 Immature Gran % 0.9 Nucleated RBC % 0.0 Immature Gran # 0.18 Segmented Neutrophils 88 H Lymphocytes 7 L Monocytes 5 Nucleated RBCs # 0.00 Platelet Estimate Increased Immature Plt Fraction 0.0 Hypochromasia 1+ Sodium Potassium Chloride Carbon Dioxide Anion Gap BUN Creatinine GFR Calculation BUN/Creatinine Ratio Glucose POC Glucose 306 H 179 H Calculated Osmolality Calcium 03/19/17 03/19/17 03/19/17 06:15 07:30 11:21 WBC RBC Hgb Hct MCV MCH MCHC RDW Plt Count MPV Neut % (Auto) Lymph % (Auto) Kerr % (Auto) Eos % (Auto) Baso % (Auto) Neut # (Auto) Lymph # (Auto) Kerr # (Auto) Eos # (Auto) Baso # (Auto) Total Counted Immature Gran % Nucleated RBC % Immature Gran # Segmented Neutrophils Lymphocytes Monocytes Nucleated RBCs # Platelet Estimate Immature Plt Fraction Hypochromasia Sodium 134 L Potassium 3.9 Chloride 100 Carbon Dioxide 26 Anion Gap 11.9 BUN 7 Creatinine 0.60 L GFR Calculation 136 BUN/Creatinine Ratio 11.00 Glucose 164 H POC Glucose 265 H 188 H Calculated Osmolality 269.2 L Calcium 8.6 - Reports Microbiology: Microbiology 03/15/17 06:48 Blood Culture - Preliminary Blood Gram Negative Rods Gram positive rods - Diagnostic Findings Procedure: Chest x-ray: image reviewed by me, report reviewed by me, CT - chest : image reviewed by me, report reviewed by me
[2017-03-19] MEDS: MEROPENEM 1,000 MG in SODIUM CHLORIDE 0.9% 100 ML IV SCH ×2 (14:45→21:07)
[2017-03-19] MEDS: WARFARIN 5 MG TABLET PO SCH ×2 (16:50→17:00)
--- NOTE | 2017-03-19 17:21 | Hospitalist Progress Note ---
Assessment and Plan (1) Cellulitis of left lower leg Status: Acute Assessment and plan: Continue Merrem and vancomycin Current Visit: Yes (2) Peripheral vascular disease Status: Chronic Current Visit: Yes (3) Gangrene of the left lower extremely Status: Acute Assessment and plan: Continue IV antibiotics. Consider amputation. Surgery for and infectious disease following Current Visit: Yes (4) Lung mass Status: Acute Assessment and plan: 1. Stable 12 mm spiculated pulmonary nodule right upper lobe. 2. Dilated distal pancreatic duct with a transition point mid pancreatic tail. At the transition, there is soft tissue fullness, 18 mm diameter, stable since October. Consider a MRI of the pancreas for better characterization to exclude underlying pancreatic mass. 3. Extensive calcified atheromatous disease. Prior granulomatous disease. 4. Calcified gallstones. 5. 6 mm vascular blush in the right liver lobe, too small to further characterize. This finding is stable when compared to previous exam. 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 Current Visit: Yes Hospitalist: Subjective Interval history: Patient seen and examined. No acute events overnight. Case discussed with nursing staff. Labs reviewed. He complains of pain in his leg. He requests amputation. He reports that his surgeon at [facility] has retired. CT of the chest was reviewed the findings are below: 1. Stable 12 mm spiculated pulmonary nodule right upper lobe. 2. Dilated distal pancreatic duct with a transition point mid pancreatic tail. At the transition, there is soft tissue fullness, 18 mm diameter, stable since October. Consider a MRI of the pancreas for better characterization to exclude underlying pancreatic mass. 3. Extensive calcified atheromatous disease. Prior granulomatous disease. 4. Calcified gallstones. 5. 6 mm vascular blush in the right liver lobe, too small to further characterize. This finding is stable when compared to previous exam. 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 Exam - Constitutional Vitals: Period Temp Pulse Resp BP Sys/Cho Pulse Ox Last 24 Hr 96.4 F-100.4 F 62-88 18-20 148-184/63-81 94-98 Exam: Constitutional System: Mild distress. No tremulousness. Head: Normocephalic, atraumatic. Ears, Nose and Throat System: No pain or tenderness. No epistaxis or discharge Eyes System: Pupils equal, round, and reactive. Extraocular muscles intact. Neck: Supple, without adenopathy, No jugular venous distention. No thyromegaly, neck mass, or prior surgery apparent. Respiratory System: Chest clear to auscultation. Cardiovascular System: Heart with regular rate and rhythm. No murmur. GI System: Abdomen soft, nontender. Normo active bowel sounds present. Musculoskeletal System: Left lower extremity with significant peripheral vascular/peripheral arterial disease. Necrosis noted at the second toe. The left foot is hyperpigmented and cold, of the left second toe is dry and gangrenous, there is a large ulceration to the medial aspect of the left leg with overlying scab but there is a raw area where the scab has come off, no drainage of pus. The entire extremity is a bit cool to touch. Neurological System: No discernable sensory deficit. No aphasia Psychiatric System: Conversation is rational Results - Labs CBC & BMP: 03/19/17 06:15 03/19/17 06:15 Lab Results: I have reviewed the past 24 hour labs
[2017-03-20] MEDS: MORPHINE 2 MG/1 ML SYRINGE IV PRN ×3 (01:35→22:58)
[2017-03-20] MEDS: VANCOMYCIN INJ 1,000 MG in SODIUM CHLORIDE 0.9% 250 ML IV SCH ×3 (01:42→17:44)
[2017-03-20] MEDS: SODIUM CHLORIDE 0.9% 1,000 ML IV SCH ×2 (01:42→04:08)
[2017-03-20] MEDS: MEROPENEM 1,000 MG in SODIUM CHLORIDE 0.9% 100 ML IV SCH ×3 (04:09→21:05)
[2017-03-20] MEDS: GABAPENTIN 600 MG TABLET PO SCH ×3 (05:54→21:03)
[2017-03-20] MEDS ORDERED: CLINDAMYCIN INJ 900 MG in PREMIX 1 EACH IV ONE (08:14)
--- NOTE | 2017-03-20 08:17 | General Surgery Progress Note ---
Assessment and Plan (1) Gangrene of the left lower extremely Status: Acute Assessment and plan: The patient is requesting an amputation to treat his pain. He has cadaveric changes in his left leg. I have recommended a left above knee amputation and he would like to proceed with this tomorrow. I have discussed the material risks, benefits, and alternatives of the operation, and the expected outcomes have been reviewed. Current Visit: Yes Subjective Patient reports: Present: no new complaints, still having pain, afebrile Exam - Constitutional Vitals: Period Temp Pulse Resp BP Sys/Cho Pulse Ox Last 24 Hr 96.4 F-99.2 F 62-86 18-20 125-173/64-81 95-98 General appearance: normal weight, no acute distress - Head Head exam: Present: normal inspection, normocephalic - Eye Eye exam: Present: EOMI. Absent: scleral icterus Pupils: Present: NANETTE - ENT ENT exam: Present: normal exam Mouth exam: Present: normal external inspection, normal voice - Neck Neck exam: Present: normal inspection, trachea midline - Respiratory Respiratory exam: Present: clear to auscultation bilaterally. Absent: accessory muscle use, chest wall tenderness - Cardiovascular Cardiovascular exam: Present: RRR. Absent: systolic murmur, tachycardia - GI/Abdominal GI/Abdominal exam: Present: soft. Absent: tenderness, rebound - Extremities Exam Extremities exam: Present: other (There is dry gangrene of the left leg but the calf wound has a foul odor and some drainage now.) - Back Exam Back exam: Present: normal inspection - Neurological Exam Neurological exam: Present: alert, oriented X3 Speech: Present: normal - Skin Skin exam: Present: normal color, warm Results - Labs CBC & BMP: 03/19/17 06:15 03/19/17 06:15 Quality Measures - VTE Contraindication to Pharmacological VTE Prophylaxis: Clinical assessment deems Pt at low risk, no prophalaxis needed
[2017-03-20] MEDS: CILOSTAZOL 100 MG TABLET PO SCH (08:52)
[2017-03-20] MEDS: PANTOPRAZOLE 40 MG TABLET PO SCH (08:52)
[2017-03-20] MEDS: INSULIN LISPRO 100 UNIT/ML SUBCUT SCH ×2 (08:52→17:43)
[2017-03-20] MEDS: LISINOPRIL 10 MG TABLET PO SCH (08:53)
[2017-03-20] MEDS: ATORVASTATIN 10 MG TABLET PO SCH (08:53)
[2017-03-20] MEDS: VERAPAMIL SR 120 MG TABLET PO SCH (08:53)
[2017-03-20] MEDS: buPROPion SR 150 MG TABLET PO SCH (08:53)
[2017-03-20] MEDS: FINASTERIDE 5 MG TABLET PO SCH (08:53)
--- NOTE | 2017-03-20 11:05 | Pulmonology Progress Note ---
Pulmonary - PN: Subj Interval history: Dean Nevaeh, [facility]-, acting as scribe for Dr. Cory High Mr. Roberson is a 71-year-old -[place] male who we saw in initial pulmonary consultation on 03/19/2017. At that time, our impressions were: 1. 12 mm right upper lung lesion stable by CT criteria since October 2016. December 2016 PET scan ordered by [facility] shows activity suggestive of cancer 2. Significant past history tobacco abuse 3. COPD 4. Peripheral artery disease 5. Gangrene left lower extremity 6. Diabetes mellitus. 7. Anemia 8. High blood pressure 9. Gallstones 10. Questionable pancreatic mass. See CT. 11. See past history 03/20/2017. Patient was seen today along with Brandon Rios RN. He has been reevaluated by Dr. Montejo and is planned for an [id number] amputation tomorrow. We certainly agree with this. The patient is excited to have this done. He has been seen in infectious disease consultation by Dr. Leonarda Romo. Her note has been reviewed. One set of blood cultures is growing a gram-negative mary and gram-positive mary. She has changed his antibiotics and he is now on Merrem and vancomycin. We have taken the liberty to start daily INRs in the face of his antibiotics and planned surgery. From a pulmonary standpoint he is doing well. Sputum daily for cytology is pending. The patient is having no sputum production. Medications have been reviewed. We made no changes today. Labs been reviewed. No new labs were drawn today. INR has been ordered. Exam (Progress Note) - Constitutional Vitals: Period Temp Pulse Resp BP Sys/Cho Pulse Ox Last 24 Hr 96.4 F-99.2 F 62-86 18-20 125-173/64-81 95-98 Exam: Chest is hyperinflated with prolonged expiration Heart no gallop Abdomen is nontender nondistended; bowel sounds are positive [address] Montejo Psychiatric oriented 3 Neurologic long-term care function is intact Plan: INR today. INRs have been ordered through Sunday. Agree with antibiotics. Continue present treatment. Agree with plans for surgery tomorrow. See orders. Results - Labs CBC & BMP: 03/19/17 06:15 03/19/17 06:15
[2017-03-20 11:42] LABS: INR 2.4
[2017-03-20 11:58] LABS: PT Patient Result 27.2 SECS
--- NOTE | 2017-03-20 14:18 | Hospitalist Progress Note ---
Hospitalist: Subjective Interval history: Patient is in good spirits. He is hopeful that he will have the surgery tomorrow. He has no complains of SOB/CP/n,v. Exam - Constitutional Vitals: Period Temp Pulse Resp BP Sys/Cho Pulse Ox Last 24 Hr 96.4 F-99.2 F 64-86 18-20 124-158/57-76 95-98 General appearance: no acute distress - Head Head exam: Present: normal inspection - Eye Eye exam: Present: EOMI Pupils: Present: NANETTE - Respiratory Respiratory exam: Present: decreased breath sounds, prolonged expiratory phase. Absent: rales, rhonchi, wheezes - Cardiovascular Cardiovascular exam: Present: regular rate and rhythm. Absent: diastolic murmur , systolic murmur - GI/Abdominal GI/Abdominal exam: Present: normal bowel sounds, soft. Absent: tenderness - Extremities Exam Extremities exam: Present: other (left leg is wrapped in dressing; no edema in RLE) - Psychiatric Psychiatric exam: Present: normal affect, normal mood Results - Labs CBC & BMP: 03/19/17 06:15 03/19/17 06:15 - Impressions 1. LLE gangrene s/p left AKA on tomorrow; conitnue merrem/vanc for 2 weeks after amputation 2. COPD: stable; continue current therapy 3. PAD: on pletal; may need to hold for surgery; will find out 4. Anemia: HCT compared to recent levels; will likely have post surgical ABLA; transfuse if Hb<7 5. HTN: fairly controlled; continue current regimen 6. Coagulopathy; INR of 2.4. Was on coumadin at home; coumadin is held here. Will give vitamin K; f/u INR in am. 7. Bacteremia: bcx from 03/15 grew GNR and GPR; f/u bcx from 03/19 so far shows no growth; on merrem/vancomycin 8. Lung mass, noted; being followed by pulmonary 9. Questional pancreatic mass; radiology recommended f/u MRI Plan: as noted above; pre op labs tomorrow. Quality Measures - VTE Contraindication to Pharmacological VTE Prophylaxis: Clinical assessment deems Pt at low risk, no prophalaxis needed
[2017-03-20] MEDS ORDERED: PHYTONADIONE PEDIATRIC 1 MG/0.5 ML AMP IM ONE (14:30)
[2017-03-20 14:58] LABS: Calcium 8.1 MG/DL (8.5-10.1); Magnesium 2.2 MG/DL (1.8-2.4); Osmolality,Calculated 271.2 MOS/KG (273-304); Potassium 3.4 MMOL/L (3.5-5.1)
[2017-03-20] MEDS ORDERED: POTASSIUM CHLORIDE 20 MEQ TABLET PO ONE (15:58)
[2017-03-20] MEDS ORDERED: PHYTONADIONE 10 MG/1 ML AMP SUBCUT ONE (15:59)
--- NOTE | 2017-03-20 16:26 | Infectious Disease Progress ---
Assessment and Plan (1) Cellulitis of left lower leg Status: Acute Assessment and plan: Patient says severe leukocytosis and positive blood cultures. Antibiotic therapy as below. Current Visit: Yes (2) Gangrene of the left lower extremely Status: Acute Assessment and plan: Amputation pending for tomorrow Current Visit: Yes (3) Hypertension Status: Acute Current Visit: Yes (4) Diabetes Status: Chronic Current Visit: Yes Qualifiers: Diabetes mellitus type: type 2 Diabetes mellitus complication detail: with unspecified neuropathy (5) Peripheral vascular disease Status: Chronic Assessment and plan: Severe with continued ischemic changes of that left leg even though he had revascularization surgery. Amputation tomorrow. Current Visit: Yes (6) Septicemia Status: Acute Assessment and plan: Patient has polymicrobial septicemia with gram-positive rods and gram-negative rods isolated from blood cultures done on admission. Source of the infection is likely that left leg wound with cellulitis. Repeat blood cultures from yesterday negative to date. Recommendations: 1. Continue meropenem and vancomycin 2. Follow-up with lab for the ID of the organisms in the blood Current Visit: Yes Infectious Disease - PN: Subj Interval history: Patient seen and examined this morning. No fever over the past 24 hours. Is doing relatively okay. Decision was made to do amputation tomorrow and he is happy about this. Says his left leg wound is draining foul fluid. Infectious Disease Exam (PN) - Constitutional Vitals: Temp Pulse Resp BP Pulse Ox 97.9 F 77 18 124/57 97 03/20/17 12:00 03/20/17 12:00 03/20/17 12:00 03/20/17 12:00 03/20/17 12:00 General appearance: no acute distress Exam: General appearance: no acute distress - Eye Eye exam: Present: EOMI. no icterus Pupils: Present: NANETTE - ENT ENT exam: no oral exudates - Respiratory Respiratory exam: vesicular BS, no crepitations or wheezes - Cardiovascular Cardiovascular exam: regular rate and rhythm, no murmurs - GI/Abdominal GI/Abdominal exam: normal bowel sounds, soft, non-tender, no organomegaly or mass - Extremities Exam Extremities exam: Left leg and foot bandaged - Skin Skin exam: no rash Results - Labs CBC & BMP: 03/19/17 06:15 03/20/17 14:34 Lab Results: I have reviewed the past 24 hour labs Quality Measures - VTE Contraindication to Pharmacological VTE Prophylaxis: Clinical assessment deems Pt at low risk, no prophalaxis needed
[2017-03-20] MEDS: WARFARIN 5 MG TABLET PO SCH (17:50)
[2017-03-20] MEDS: ACETAMINOPHEN 325 MG TABLET PO PRN (18:48)
[2017-03-21] MEDS: VANCOMYCIN INJ 1,000 MG in SODIUM CHLORIDE 0.9% 250 ML IV SCH ×3 (00:09→16:41)
[2017-03-21] MEDS: SODIUM CHLORIDE 0.9% 1,000 ML IV SCH ×2 (04:22→18:42)
[2017-03-21] MEDS: MEROPENEM 1,000 MG in SODIUM CHLORIDE 0.9% 100 ML IV SCH ×3 (04:22→20:46)
[2017-03-21] MEDS: GABAPENTIN 600 MG TABLET PO SCH ×4 (05:02→21:34)
[2017-03-21] MEDS: MORPHINE 2 MG/1 ML SYRINGE IV PRN ×4 (05:41→20:47)
[2017-03-21 06:33] LABS: Basophils # 0.1 10*3/uL (0.0-0.2); Basophils % 0.3 % (0.0-0.8); Eosinophils # 0.1 10*3/uL (0.0-0.87); Eosinophils % 0.3 % (0.00-10.9); Hematocrit 24.7 VOL% (42.0-52.0); Hemoglobin 7.9 GM/DL (14.0-18.0); Immature Granulocytes Absolute 0.17 #; Lymphocytes # 1.5 10*3/uL (1.4-4.0); Mean Corpuscular Hemoglobin 30 PG (27-34); Mean Corpuscular Volume 93.9 FL (87-102); Mean Platelet Volume 9.4 FL (9.6-12.0); Neutrophils # 14.1 10*3/uL (1.4-7.4); Neutrophils % 83.4 % (38.7-73.9); Platelet Count 453 T/CUMM (130-400); Red Blood Count 2.63 MC/CUMM (3.8-5.5); White Blood Count 16.9 T/CUMM (4-12)
[2017-03-21 06:49] LABS: INR 2.1
[2017-03-21 06:50] LABS: PT Patient Result 22.9 SECS
[2017-03-21 07:04] LABS: Calcium 8.6 MG/DL (8.5-10.1); Osmolality,Calculated 275.7 MOS/KG (273-304); Potassium 4.3 MMOL/L (3.5-5.1)
[2017-03-21] MEDS ORDERED: SODIUM CHLORIDE 0.9% 250 ML IV PRN (08:02)
[2017-03-21] MEDS ORDERED: PHYTONADIONE 10 MG/1 ML AMP SUBCUT ONE (08:20)
[2017-03-21] MEDS: VERAPAMIL SR 120 MG TABLET PO SCH (08:39)
[2017-03-21] MEDS: LISINOPRIL 10 MG TABLET PO SCH (08:39)
--- NOTE | 2017-03-21 08:39 | General Surgery Progress Note ---
Assessment and Plan (1) Gangrene of the left lower extremely Status: Acute Assessment and plan: This patient has evidence of worsening infection in his left leg with now foul odor and soupy drainage from the leg wound. He is on Coumadin and was given some vitamin K last night with response down to 2.1 and his INR. I recommended to the patient to proceed with above-knee amputation. I have offered the patient a CT angiogram to evaluate for potential options of below-knee amputation with revascularization but the patient is not interested in this and I think this is probably a goode decision based on the infected wound is now present at the below-knee amputation site where he would have to make our incision and create myocutaneous flaps. The patient would like to have an above -knee amputation I do not think that we need to get a CT angiogram prior to an above-knee amputation given the low chance that it would have trouble healing at this level from collateral flow. We may need to get a CT angiogram prior to him leaving to evaluate the blood flow to his right leg which also appears to have severe disease on his noninvasive studies last week. In regards to his INR , it is coming down to 2.1 so we will re-dose his vitamin K this morning and plan on taking him to surgery with some fresh frozen plasma on standby. I would prefer to hold off on giving fresh frozen plasma because of the wrist that can be associated with transfusion of these blood products so we will go ahead and proceed with surgery after he gets vitamin K, hold his Coumadin, and if there is bleeding problems will give him some plasma during the operation. Current Visit: Yes Subjective Patient reports: Present: no new complaints, still having pain, afebrile Exam - Constitutional Vitals: Period Temp Pulse Resp BP Sys/Cho Pulse Ox Last 24 Hr 97.2 F-100.4 F 70-86 18-20 124-153/57-63 97-99 General appearance: normal weight, no acute distress - Head Head exam: Present: normal inspection, normocephalic - Eye Eye exam: Present: EOMI. Absent: scleral icterus Pupils: Present: NANETTE - ENT ENT exam: Present: normal exam Mouth exam: Present: normal external inspection, normal voice - Neck Neck exam: Present: normal inspection, trachea midline - Respiratory Respiratory exam: Present: clear to auscultation bilaterally. Absent: accessory muscle use, chest wall tenderness - Cardiovascular Cardiovascular exam: Present: RRR. Absent: systolic murmur, tachycardia - GI/Abdominal GI/Abdominal exam: Present: soft. Absent: tenderness, rebound - Extremities Exam Extremities exam: Present: other (There is gangrene of the left lower leg and left second toe there is some foul odor coming from the leg wound and unfortunately this is in the area where a skin flap and muscle flap would be necessary for a below-knee amputation.) - Back Exam Back exam: Present: normal inspection - Neurological Exam Neurological exam: Present: alert, oriented X3 Speech: Present: normal - Skin Skin exam: Present: normal color, warm Results - Labs CBC & BMP: 03/21/17 05:53 03/21/17 05:53 Quality Measures - VTE Contraindication to Pharmacological VTE Prophylaxis: Clinical assessment deems Pt at low risk, no prophalaxis needed
[2017-03-21] MEDS: INSULIN LISPRO 100 UNIT/ML SUBCUT SCH ×2 (08:45→16:38)
[2017-03-21] MEDS: CILOSTAZOL 100 MG TABLET PO SCH (08:46)
[2017-03-21] MEDS: PANTOPRAZOLE 40 MG TABLET PO SCH (08:46)
[2017-03-21] MEDS: ATORVASTATIN 10 MG TABLET PO SCH (08:46)
[2017-03-21] MEDS: FINASTERIDE 5 MG TABLET PO SCH (08:46)
[2017-03-21] MEDS: buPROPion SR 150 MG TABLET PO SCH (08:48)
[2017-03-21] MEDS ORDERED: SEVOFLURANE 1 UNIT/15 MINUTE INH ONE ×2 (09:00→11:44)
[2017-03-21] MEDS ORDERED: LIDOCAINE 100 MG/5 ML SYRINGE ONE (09:00)
[2017-03-21] MEDS ORDERED: ONDANSETRON 4 MG/2 ML VIAL ONE (09:00)
[2017-03-21] MEDS ORDERED: PROPOFOL 200 MG/20 ML VIAL IV ONE (09:00)
--- NOTE | 2017-03-21 09:18 | Hospitalist Progress Note ---
Assessment and Plan (1) Cellulitis of left lower leg Status: Acute Assessment and plan: Continue on present antibiotics. Current Visit: Yes (2) Septicemia Status: Acute Assessment and plan: Continue on present antibiotics. Current Visit: Yes (3) Peripheral vascular disease Status: Chronic Assessment and plan: He is to undergo amputation today. Current Visit: Yes Hospitalist: Subjective Interval history: Patient to undergo planned amputation today. Exam - Constitutional Vitals: Period Temp Pulse Resp BP Sys/Cho Pulse Ox Last 24 Hr 97.2 F-100.4 F 70-86 18-20 124-153/57-63 97-99 General appearance: no acute distress - Head Head exam: Present: normal inspection - Neck Neck exam: Present: normal inspection - Respiratory Respiratory exam: Present: clear to auscultation bilaterally - Cardiovascular Cardiovascular exam: Present: regular rate and rhythm - GI/Abdominal GI/Abdominal exam: Present: normal bowel sounds, soft - Neurological Exam Neurological exam: Present: alert, oriented X3 - Skin Skin exam: Present: normal color, warm, intact Results - Labs CBC & BMP: 03/21/17 05:53 03/21/17 05:53 Quality Measures - VTE Contraindication to Pharmacological VTE Prophylaxis: Clinical assessment deems Pt at low risk, no prophalaxis needed
--- NOTE | 2017-03-21 09:42 | Pulmonology Progress Note ---
Pulmonary - PN: Subj Interval history: Dean Herring, [facility]-, acting as scribe for Dr. Cory High Mr. Roberson is a 71-year-old -[place] male who we saw in initial pulmonary consultation on 03/19/2017. At that time, our impressions were: 1. 12 mm right upper lung lesion stable by CT criteria since October 2016. December 2016 PET scan ordered by [facility] shows activity suggestive of cancer 2. Significant past history tobacco abuse 3. COPD 4. Peripheral artery disease 5. Gangrene left lower extremity 6. Diabetes mellitus. 7. Anemia 8. High blood pressure 9. Gallstones 10. Questionable pancreatic mass. See CT. 11. See past history 03/20/2017. Patient was seen today along with Brandon Rios RN. He has been reevaluated by Dr. Montejo and is planned for an [id number] amputation tomorrow. We certainly agree with this. The patient is excited to have this done. He has been seen in infectious disease consultation by Dr. Leonarda Romo. Her note has been reviewed. One set of blood cultures is growing a gram-negative mary and gram-positive mary. She has changed his antibiotics and he is now on Merrem and vancomycin. We have taken the liberty to start daily INRs in the face of his antibiotics and planned surgery. From a pulmonary standpoint he is doing well. Sputum daily for cytology is pending. The patient is having no sputum production. 03/21/17. The patient had already been taken for his planned AKA this morning. His chart and labs have been reviewed. Case was discussed with Dr. Montejo. Blood cultures obtained 03/15/2017 still have not been identified. Preliminary cultures are growing a gram-negative mary and gram-positive rods. These were verified 03/21/2017 at 8:22 AM. The critical value was reportedly called on 03/19 at 10:39 AM. Is noted that the gram variable mary was sent to reference lab for identification at that time. Repeat blood cultures obtained 03/19/2017 have grown no organisms thus far. Dr. Lei is following along infectious disease consultation. She is managing the patient's antibiotics. Obviously, it is felt the patient's source of infection as his infected leg. INR yesterday was 2.4 and today is 2.1. Presently his Coumadin is on hold secondary to his surgery today. Medications have been reviewed. We made no changes today. Labs been reviewed. White count is 16,900 with 83.4% segs; H&H 7.9/24.7; platelet count 453,000; INR 2.1; creatinine 0.60, BUN 7, electrolytes are normal ; vancomycin trough yesterday was 14.5 Exam (Progress Note) - Constitutional Vitals: Period Temp Pulse Resp BP Sys/Cho Pulse Ox Last 24 Hr 97.2 F-100.4 F 70-86 18-20 124-153/57-63 97-99 Results - Labs CBC & BMP: 03/21/17 05:53 03/21/17 05:53
--- NOTE | 2017-03-21 11:43 | Anesthesia Post-Op ---
Anesthesia Post OP - Post Ansesthetic Evaluation Patient seen in post op: Yes Resp: within normal limits CV: within normal limits Mental: within normal limits Temp: within normal limits [id number]: within normal limits Nausea and Vomiting: within normal limits Pain: within normal limits
[2017-03-21] MEDS ORDERED: fentaNYL 100 MCG/2 ML VIAL ONE (11:44)
--- NOTE | 2017-03-21 11:44 | Operative Note ---
Date of procedure: 03/21/17 Pre-op diagnosis: gangrene left lower extremity Post-op diagnosis: same Procedure: Preoperative diagnosis Left lower extremity wet gangrene with failed revascularization and bacteremia Postoperative diagnosis Same Procedures performed Left above-knee amputation Findings There was healthy viable tissue at the resection margin. The patient had an occluded graft in the medial left thigh that was tied off in addition to his vessels in the usual anatomic location. Blood loss 300 mL Anesthesia GETA Complications None apparent Specimen Left lower leg Indications This patient was admitted with worsening pain of his left leg and I was consulted to see him for dry gangrene of his left second toe and left medial lower leg. Over the course of his hospitalization I initially recommended monitoring these wounds but his blood cultures came back positive and the wound over his left medial calf was suspected to be the source of the infection. He did develop a foul odor even on antibiotics and started draining and the patient developed a high leukocytosis that persisted. I offered to transfer the patient back to his vascular surgeon for evaluation but the patient was insistent on staying here at [facility]. We obtain noninvasive vascular studies which showed aortoiliac disease as well as severe disease in the bilateral lower extremities worse on the left side. The patient's wound prohibited a below-knee amputation and he had significant muscle atrophy and gangrene up to just below his knee. For these reasons I felt that an above- knee amputation would be the most appropriate treatment of the patient's current problems. I discussed this with the patient and also discussed the possibility of attempting revascularization to obtain a below-knee amputation stump but the patient requested an above-knee amputation after he had heard all the options. I think this is reasonable and discussed this in detail with the patient. I have discussed the risks, benefits, and alternatives of the amputation with patient in detail. I have discussed specifically the risk of chronic pain, phantom limb pain, infection, bleeding, and need for higher amputation. The patient understands these risks and would like to proceed with the operation. Description of procedure The patient was taken to the operating room and transferred to the operating table in the supine position. Pressure points were padded and general anesthesia was administered. The left leg was prepped with Betadine and draped sterilely. Preoperative antibiotics were administered, and a timeout was performed. A fishmouth incision was marked out above the patella with a marking pen and a scalpel was used to make the incision. Electrocautery was used to dissected through subcutaneous tissues. The sartorius muscle was divided and the neurovascular bundle was exposed. The femoral artery and vein were ligated with suture ligature using 2-0 silk sutures. The bypass graft in the medial thigh was suture ligated with 2-0 silk sutures. The posterior nerve was divided high and tied off with a 2-0 Vicryl tie. The wound was irrigated after the femur was transected with a bone saw 10 cm above the myocutaneous flap incision. The edges of the bone were filed down to prevent pressure wounds. The wound was then closed with a 2-0 Vicryl running fascial closure and the skin was closed with skin clips. A sterile dressing was applied. The patient was awakened from anesthesia and transferred to recovery. Postoperative plan Rehabilitation and physical therapy Anesthesia: BENNIE Surgeon / Physician: Tarik Montejo Estimated blood loss: other (300 mL) Specimens: none sent Condition: stable Disposition: PACU Results - Labs CBC & BMP: 03/21/17 05:53 03/21/17 05:53 Discharge Plan - Discharge Medications No Action Warfarin [Coumadin] 12.5 mg PO DIRECTED Atorvastatin [Lipitor] 10 mg PO DAILY glipiZIDE [Glipizide] 5 mg PO DAILY Gabapentin 600 mg PO Q8HR Finasteride 5 mg PO DAILY Cilostazol 50 mg PO DAILY Warfarin [Coumadin] 10 mg PO DIRECTED Verapamil HCl [Verapamil ER Cap] 120 mg PO DAILY Sildenafil Citrate [Viagra] 100 mg PO DAILY PRN PRN Reason: Erectile Dysfunction Omeprazole 20 mg PO DAILY Lisinopril 10 mg PO DAILY buPROPion HCl [Bupropion HCl Sr] 150 mg PO DAILY Alfuzosin [Uroxatral] 10 mg PO QPM Albuterol Inhaler [Proventil Inhaler] 2 puff INH DAILY Hydrocodone/Acetaminophen [Hydrocodon-Acetaminophn 10-325] 1 each PO BID PRN PRN Reason: Pain - Follow Up or Referral - Forms/Instructions
[2017-03-21] MEDS ORDERED: MIDAZOLAM 2 MG/2 ML VIAL ONE (11:45)
--- NOTE | 2017-03-21 13:17 | Infectious Disease Progress ---
Assessment and Plan (1) Cellulitis of left lower leg Status: Acute Assessment and plan: Patient says severe leukocytosis and positive blood cultures. He status post AKA today. Current Visit: Yes (2) Gangrene of the left lower extremely Status: Acute Assessment and plan: Amputation done today Current Visit: Yes (3) Hypertension Status: Acute Current Visit: Yes (4) Diabetes Status: Chronic Current Visit: Yes Qualifiers: Diabetes mellitus type: type 2 Diabetes mellitus complication detail: with unspecified neuropathy (5) Peripheral vascular disease Status: Chronic Assessment and plan: Severe with continued ischemic changes of that left leg even though he had revascularization surgery. Amputation completed today. Current Visit: Yes (6) Septicemia Status: Acute Assessment and plan: Patient has polymicrobial septicemia with gram-positive rods and gram-negative rods isolated from blood cultures done on admission. Source of the infection is likely that left leg wound with cellulitis. Repeat blood cultures from yesterday negative to date. Original blood culture sent out to reference lab. Recommendations: 1. Continue meropenem and vancomycin 2. Follow-up with lab for the ID of the organisms in the blood Current Visit: Yes Infectious Disease - PN: Subj Interval history: Patient doing fairly okay, just came up from left AKA. No fever today but spiked 100.4 last night. She is having some aching of the petition stump. No nausea vomiting or diarrhea. Infectious Disease Exam (PN) - Constitutional Vitals: Temp Pulse Resp BP Pulse Ox 98.7 F 73 20 147/68 95 03/21/17 12:42 03/21/17 12:42 03/21/17 12:42 03/21/17 12:42 03/21/17 12:42 General appearance: no acute distress Exam: General appearance: no acute distress - Eye Eye exam: Present: EOMI. no icterus Pupils: Present: NANETTE - ENT ENT exam: no oral exudates - Respiratory Respiratory exam: vesicular BS, no crepitations or wheezes - Cardiovascular Cardiovascular exam: regular rate and rhythm, no murmurs - GI/Abdominal GI/Abdominal exam: normal bowel sounds, soft, non-tender, no organomegaly or mass - Extremities Exam Extremities exam: Left AKA stump bandaged - Skin Skin exam: no rash Results - Labs CBC & BMP: 03/21/17 05:53 03/21/17 05:53 Lab Results: I have reviewed the past 24 hour labs (Blood culture sent of the reference lab for ID of the GPRs and GNR's) Quality Measures - VTE Contraindication to Pharmacological VTE Prophylaxis: Clinical assessment deems Pt at low risk, no prophalaxis needed
--- NOTE | 2017-03-21 17:12 | Event Note ---
General Surgery Progress Note Chief complaint This patient is a 71-year-old man admitted with gangrene of his left leg treated with left above-knee amputation on 03/21/2017 Interval history No events since OR. Pain is well controlled. Patient is tolerating diet. Physical exam The patient is afebrile with normal vital signs The dressing on the left leg stump is clean with no evidence of bleeding or infection Labs None new Imaging None new Assessment and plan Physical therapy to start tomorrow Diet as tolerated Continue pain control and gabapentin
[2017-03-22] MEDS: MORPHINE 2 MG/1 ML SYRINGE IV PRN ×5 (00:57→20:46)
[2017-03-22] MEDS: VANCOMYCIN INJ 1,000 MG in SODIUM CHLORIDE 0.9% 250 ML IV SCH ×3 (00:57→16:55)
[2017-03-22] MEDS: GABAPENTIN 600 MG TABLET PO SCH ×4 (06:02→21:41)
[2017-03-22] MEDS: MEROPENEM 1,000 MG in SODIUM CHLORIDE 0.9% 100 ML IV SCH ×3 (06:03→20:47)
[2017-03-22 07:01] LABS: Basophils % 0.2 % (0.0-0.8); Eosinophils # 0.1 10*3/uL (0.0-0.87); Eosinophils % 0.3 % (0.00-10.9); Hematocrit 28.9 VOL% (42.0-52.0); Hemoglobin 9.7 GM/DL (14.0-18.0); Immature Granulocytes % 0.8 %; Immature Granulocytes Absolute 0.13 #; Lymphocytes # 1.7 10*3/uL (1.4-4.0); Lymphocytes % 10.3 % (21.2-54.2); Mean Corpuscular HGB Conc 33.6 GM/DL (32-36); Mean Corpuscular Hemoglobin 30 PG (27-34); Mean Corpuscular Volume 90.3 FL (87-102); Mean Platelet Volume 9.4 FL (9.6-12.0); Monocytes % 6.3 % (1.7-12.7); Neutrophils # 13.4 10*3/uL (1.4-7.4); Neutrophils % 82.1 % (38.7-73.9); Platelet Count 461 T/CUMM (130-400); Red Cell Distribution Width 15.4 % (9.3-17.3); White Blood Count 16.3 T/CUMM (4-12)
[2017-03-22 07:09] LABS: INR 1.4; PT Patient Result 15.3 SECS
[2017-03-22 07:31] LABS: Bilirubin,Total 2.1 MG/DL (0.2-1.0); Calcium 8.1 MG/DL (8.5-10.1); Total Protein 6.3 G/DL (6.4-8.3)
[2017-03-22] MEDS: CILOSTAZOL 100 MG TABLET PO SCH (08:43)
[2017-03-22] MEDS: VERAPAMIL SR 120 MG TABLET PO SCH (08:45)
[2017-03-22] MEDS: buPROPion SR 150 MG TABLET PO SCH (08:45)
[2017-03-22] MEDS: ATORVASTATIN 10 MG TABLET PO SCH (08:45)
[2017-03-22] MEDS: FINASTERIDE 5 MG TABLET PO SCH (08:45)
[2017-03-22] MEDS: PANTOPRAZOLE 40 MG TABLET PO SCH (08:45)
[2017-03-22] MEDS: LISINOPRIL 10 MG TABLET PO SCH (08:45)
[2017-03-22] MEDS: INSULIN LISPRO 100 UNIT/ML SUBCUT SCH ×2 (08:46→16:55)
--- NOTE | 2017-03-22 10:09 | Pulmonology Progress Note ---
Pulmonary - PN: Subj Interval history: Dean Herring, [facility]-, acting as scribe for Dr. Cory High Mr. Roberson is a 71-year-old -[place] male who we saw in initial pulmonary consultation on 03/19/2017. At that time, our impressions were: 1. 12 mm right upper lung lesion stable by CT criteria since October 2016. December 2016 PET scan ordered by [facility] shows activity suggestive of cancer 2. Significant past history tobacco abuse 3. COPD 4. Peripheral artery disease 5. Gangrene left lower extremity 6. Diabetes mellitus. 7. Anemia 8. High blood pressure 9. Gallstones 10. Questionable pancreatic mass. See CT. 11. See past history 03/20/2017. Patient was seen today along with Brandon Rios RN. He has been reevaluated by Dr. Montejo and is planned for an [id number] amputation tomorrow. We certainly agree with this. The patient is excited to have this done. He has been seen in infectious disease consultation by Dr. Leonarda Romo. Her note has been reviewed. One set of blood cultures is growing a gram-negative mary and gram-positive mary. She has changed his antibiotics and he is now on Merrem and vancomycin. We have taken the liberty to start daily INRs in the face of his antibiotics and planned surgery. From a pulmonary standpoint he is doing well. Sputum daily for cytology is pending. The patient is having no sputum production. 03/21/17. The patient had already been taken for his planned AKA this morning. His chart and labs have been reviewed. Case was discussed with Dr. Montejo. Blood cultures obtained 03/15/2017 still have not been identified. Preliminary cultures are growing a gram-negative mary and gram-positive rods. These were verified 03/21/2017 at 8:22 AM. The critical value was reportedly called on 03/19 at 10:39 AM. Is noted that the gram variable mary was sent to reference lab for identification at that time. Repeat blood cultures obtained 03/19/2017 have grown no organisms thus far. Dr. Lei is following along infectious disease consultation. She is managing the patient's antibiotics. Obviously, it is felt the patient's source of infection as his infected leg. INR yesterday was 2.4 and today is 2.1. Presently his Coumadin is on hold secondary to his surgery today. Medications have been reviewed. We made no changes today. Labs been reviewed. White count is 16,900 with 83.4% segs; H&H 7.9/24.7; platelet count 453,000; INR 2.1; creatinine 0.60, BUN 7, electrolytes are normal ; vancomycin trough yesterday was 14.5 03/22/17. The patient was seen today along with Mayuri Frye RN. He had an AKA on the left yesterday and has done well post-op. He was on chronic Coumadin therapy at admission for, we believe, his ischemic leg. Obviously his Coumadin was held prior to surgery and has not been restarted. We are unsure if he was on it for any other reason. He is not being covered with any other blood thinning agent. This will need to be addressed when he is stable from a surgical standpoint if it is felt he needs another anticoagulant. With the amputation, certainly he may not, assuming there is no other medical reason for him to need one. He has no history of a-fib or CVA to our knowledge. From a pulmonary standpoint he is doing well. He denies any shortness of breath or cough. Medications have been reviewed. We made no changes today. Labs have been reviewed. White count is 16,300 with 82.1% segs; H&H 9.1/28.9; platelet count 461,000; INR 1.4; creatinine 0.60, BUN 7, O lites are normal; calcium is low at 8.1 reflected in a low albumin of 2.0, total protein 6.3; total bilirubin 2.10, liver function tests within normal limits with the exception of a minimally elevated AST of 46 Exam (Progress Note) - Constitutional Vitals: Period Temp Pulse Resp BP Sys/Cho Pulse Ox Last 24 Hr 97.5 F-99.3 F 67-81 16-23 116-183/43-88 95-100 Exam: Chest is hyperinflated with prolonged expiration Heart no gallop Abdomen is nontender and nondistended; bowel sounds are positive [address] Montejo Psychiatric oriented 3 Neurologic long-term motor function is intact Plan: Continue present treatment. Consideration for resumption of anticoagulation as above. See orders. Results - Labs CBC & BMP: 03/22/17 05:26 03/22/17 05:26
[2017-03-22] MEDS: WARFARIN 5 MG TABLET PO SCH (11:12)
[2017-03-22] MEDS: ACETAMINOPHEN 325 MG TABLET PO PRN (12:49)
--- NOTE | 2017-03-22 13:42 | Infectious Disease Progress ---
Assessment and Plan (1) Cellulitis of left lower leg Status: Acute Assessment and plan: He status post AKA. Current Visit: Yes (2) Gangrene of the left lower extremely Status: Acute Assessment and plan: Amputation done. Still with leukocytosis which should eventually resolve. Current Visit: Yes (3) Hypertension Status: Acute Current Visit: Yes (4) Diabetes Status: Chronic Current Visit: Yes Qualifiers: Diabetes mellitus type: type 2 Diabetes mellitus complication detail: with unspecified neuropathy (5) Peripheral vascular disease Status: Chronic Current Visit: Yes (6) Septicemia Status: Acute Assessment and plan: Patient has polymicrobial septicemia with gram-positive rods and gram-negative rods isolated from blood cultures done on admission. Source of the infection is likely that left leg wound with cellulitis. Repeat blood cultures from yesterday negative to date. Original blood culture sent out to reference lab. He is better now that he had AKA though there is still significant leukocytosis. Recommendations: 1. Continue meropenem and vancomycin 2. Follow-up with lab for the ID of the organisms in the blood Current Visit: Yes Infectious Disease - PN: Subj Interval history: Patient generally doing much better since the amputation. No fever. Tolerating antibiotics without N, V, D. Infectious Disease Exam (PN) - Constitutional Vitals: Temp Pulse Resp BP Pulse Ox 98.4 F 73 18 147/69 95 03/22/17 11:25 03/22/17 11:25 03/22/17 11:25 03/22/17 11:25 03/22/17 11:25 General appearance: no acute distress Exam: General appearance: no acute distress - Eye Eye exam: Present: EOMI. no icterus Pupils: Present: NANETTE - ENT ENT exam: no oral exudates - Respiratory Respiratory exam: vesicular BS, no crepitations or wheezes - Cardiovascular Cardiovascular exam: regular rate and rhythm, no murmurs - GI/Abdominal GI/Abdominal exam: normal bowel sounds, soft, non-tender, no organomegaly or mass - Extremities Exam Extremities exam: Left AKA stump bandaged - Skin Skin exam: no rash Results - Labs CBC & BMP: 03/22/17 05:26 03/22/17 05:26 Lab Results: I have reviewed the past 24 hour labs Quality Measures - VTE Contraindication to Pharmacological VTE Prophylaxis: Clinical assessment deems Pt at low risk, no prophalaxis needed
--- NOTE | 2017-03-22 14:19 | Event Note ---
General Surgery Progress Note Chief complaint This patient is a 71-year-old man admitted with gangrene of his left leg treated with left above-knee amputation on 03/21/2017 Interval history No events overnight. Afebrile. Leukocytosis is resolving. Physical exam The patient is afebrile with normal vital signs The dressing on the left leg stump is clean with no evidence of bleeding or infection Labs None new Imaging None new Assessment and plan Continue physical therapy Continue pain control It is okay to restart Coumadin We will get a CT angiogram of the right leg tomorrow if the patient's creatinine is normal
--- NOTE | 2017-03-22 15:11 | Hospitalist Progress Note ---
Assessment and Plan (1) Gangrene of the left lower extremely Status: Acute Assessment and plan: s/p AKA amputation Plan continue wound dressings, PT, follow Surgery and ID's recommendations Current Visit: Yes (2) Septicemia Status: Acute Assessment and plan: Patient has polymicrobial septicemia with gram-positive rods and gram-negative rods isolated from blood cultures done on admission. Source of the infection is likely that left leg wound with cellulitis. Repeat blood cultures from yesterday negative to date. Original blood culture sent out to reference lab. He is better now that he had AKA though there is still significant leukocytosis. Plan Follow ID's recommendation Current Visit: Yes (3) Hypertension Status: Acute Assessment and plan: stable Current Visit: Yes (4) Peripheral vascular disease Status: Chronic Assessment and plan: continue with meds, will get Lipid panel Current Visit: Yes (5) Diabetes Status: Chronic Assessment and plan: will get HbA1c level, continue current regime Current Visit: Yes Qualifiers: Diabetes mellitus type: type 2 Diabetes mellitus complication detail: with unspecified neuropathy (6) Cellulitis of left lower leg Status: Acute Assessment and plan: He status post AKA. Current Visit: Yes Hospitalist: Subjective Interval history: Patient complains of pain and paraesthesia around his amputated limb. Exam - Constitutional Vitals: Period Temp Pulse Resp BP Sys/Cho Pulse Ox Last 24 Hr 97.5 F-98.5 F 69-76 16-20 147-183/69-88 95-100 General appearance: no acute distress - Head Head exam: Present: normal inspection - Respiratory Respiratory exam: Present: clear to auscultation bilaterally - Cardiovascular Cardiovascular exam: Present: regular rate and rhythm - GI/Abdominal GI/Abdominal exam: Present: normal bowel sounds - Extremities Exam Extremities exam: Present: other (left stump bandaged and dressings look clean) Results - Labs CBC & BMP: 03/22/17 05:26 03/22/17 05:26 Lab Results: I have reviewed the past 24 hour labs Quality Measures - VTE Contraindication to Pharmacological VTE Prophylaxis: Clinical assessment deems Pt at low risk, no prophalaxis needed
[2017-03-22] MEDS: SODIUM CHLORIDE 0.9% 1,000 ML IV SCH (20:48)
[2017-03-23] MEDS: MORPHINE 2 MG/1 ML SYRINGE IV PRN ×4 (01:04→21:08)
[2017-03-23] MEDS: VANCOMYCIN INJ 1,000 MG in SODIUM CHLORIDE 0.9% 250 ML IV SCH ×3 (01:05→16:59)
[2017-03-23] MEDS: GABAPENTIN 600 MG TABLET PO SCH ×3 (05:38→21:11)
[2017-03-23] MEDS: MEROPENEM 1,000 MG in SODIUM CHLORIDE 0.9% 100 ML IV SCH ×3 (05:38→21:08)
[2017-03-23 06:19] LABS: Basophils # 0.1 10*3/uL (0.0-0.2); Basophils % 0.3 % (0.0-0.8); Eosinophils # 0.1 10*3/uL (0.0-0.87); Eosinophils % 0.6 % (0.00-10.9); Hematocrit 29.8 VOL% (42.0-52.0); Hemoglobin 9.8 GM/DL (14.0-18.0); Immature Granulocytes % 0.8 %; Immature Granulocytes Absolute 0.13 #; Lymphocytes % 12.2 % (21.2-54.2); Mean Corpuscular HGB Conc 32.9 GM/DL (32-36); Mean Corpuscular Hemoglobin 30 PG (27-34); Mean Corpuscular Volume 91.4 FL (87-102); Mean Platelet Volume 9.4 FL (9.6-12.0); Monocytes % 6.2 % (1.7-12.7); Neutrophils # 12.9 10*3/uL (1.4-7.4); Neutrophils % 79.9 % (38.7-73.9); Platelet Count 486 T/CUMM (130-400); Red Blood Count 3.26 MC/CUMM (3.8-5.5); White Blood Count 16.1 T/CUMM (4-12)
[2017-03-23 06:37] LABS: INR 1.1; PT Patient Result 11.8 SECS
[2017-03-23 06:51] LABS: Calcium 8.3 MG/DL (8.5-10.1); Magnesium 2.3 MG/DL (1.8-2.4); Osmolality,Calculated 275.8 MOS/KG (273-304); Potassium 4.2 MMOL/L (3.5-5.1)
[2017-03-23 06:52] LABS: Risk Ratio 3.85; VLDL CHOLESTEROL 15.8 MG/DL
[2017-03-23] MEDS: CILOSTAZOL 100 MG TABLET PO SCH (09:05)
[2017-03-23] MEDS: buPROPion SR 150 MG TABLET PO SCH (09:05)
[2017-03-23] MEDS: INSULIN LISPRO 100 UNIT/ML SUBCUT SCH ×2 (09:06→17:04)
[2017-03-23] MEDS: FINASTERIDE 5 MG TABLET PO SCH (09:08)
[2017-03-23] MEDS: VERAPAMIL SR 120 MG TABLET PO SCH (09:08)
[2017-03-23] MEDS: LISINOPRIL 10 MG TABLET PO SCH (09:09)
[2017-03-23] MEDS: PANTOPRAZOLE 40 MG TABLET PO SCH (09:09)
[2017-03-23] MEDS: ATORVASTATIN 10 MG TABLET PO SCH (09:09)
--- NOTE | 2017-03-23 09:25 | Event Note ---
General Surgery Progress Note Chief complaint This patient is a 71-year-old man admitted with gangrene of his left leg treated with left above-knee amputation on 03/21/2017 Interval history No events overnight. Afebrile. Leukocytosis is resolving, but slowly. Physical exam The patient is afebrile with normal vital signs The dressing on the left leg stump is clean with no evidence of bleeding or infection Labs reviewed Imaging None new Assessment and plan Continue physical therapy referral to rehab, awaiting approval continue coumadin Will get CTA of the right leg to evaluate for revascularization given his severe PAD on non-invasive studies
[2017-03-23] MEDS: SODIUM CHLORIDE 0.9% 1,000 ML IV SCH ×2 (10:38→21:09)
[2017-03-23] MEDS ORDERED: BISACODYL 5 MG TABLET PO ONE (11:05)
--- NOTE | 2017-03-23 11:44 | Infectious Disease Progress ---
Assessment and Plan (1) Cellulitis of left lower leg Status: Acute Assessment and plan: He status post AKA. Current Visit: Yes (2) Gangrene of the left lower extremely Status: Acute Assessment and plan: Amputation done. Still with leukocytosis which is slow to resolve. Current Visit: Yes (3) Hypertension Status: Acute Current Visit: Yes (4) Diabetes Status: Chronic Current Visit: Yes Qualifiers: Diabetes mellitus type: type 2 Diabetes mellitus complication detail: with unspecified neuropathy (5) Peripheral vascular disease Status: Chronic Current Visit: Yes (6) Septicemia Status: Acute Assessment and plan: Patient has polymicrobial septicemia with gram-positive rods and gram-negative rods isolated from blood cultures done on admission. Source of the infection is likely that left leg wound with cellulitis. Repeat blood cultures from yesterday negative to date. Original blood culture sent out to reference lab. He is better now that he had AKA though there is still significant leukocytosis , slow to resolve. Recommendations: 1. Continue meropenem and vancomycin 2. Follow-up with lab for the ID of the organisms in the blood. Result is still pending from reference lab. Current Visit: Yes Infectious Disease - PN: Subj Interval history: Patient without any complaints. No fever. Tolerating antibiotics without nausea vomiting or diarrhea. Infectious Disease Exam (PN) - Constitutional Vitals: Temp Pulse Resp BP Pulse Ox 98.0 F 76 18 191/78 97 03/23/17 07:54 03/23/17 07:54 03/23/17 07:54 03/23/17 07:54 03/23/17 07:54 General appearance: no acute distress Exam: General appearance: no acute distress - Eye Eye exam: Present: EOMI. no icterus Pupils: Present: NANETTE - ENT ENT exam: no oral exudates - Respiratory Respiratory exam: vesicular BS, no crepitations or wheezes - Cardiovascular Cardiovascular exam: regular rate and rhythm, no murmurs - GI/Abdominal GI/Abdominal exam: normal bowel sounds, soft, non-tender, no organomegaly or mass - Extremities Exam Extremities exam: Left AKA stump bandaged - Skin Skin exam: no rash Results - Labs CBC & BMP: 03/23/17 04:55 03/23/17 04:55 Lab Results: I have reviewed the past 24 hour labs Quality Measures - VTE Contraindication to Pharmacological VTE Prophylaxis: Clinical assessment deems Pt at low risk, no prophalaxis needed
--- NOTE | 2017-03-23 12:09 | Pulmonology Progress Note ---
Pulmonary - PN: Subj Interval history: Dean Herring, [facility]-, acting as scribe for Dr. Cory High Mr. Roberson is a 71-year-old -[place] male who we saw in initial pulmonary consultation on 03/19/2017. At that time, our impressions were: 1. 12 mm right upper lung lesion stable by CT criteria since October 2016. December 2016 PET scan ordered by [place] shows activity suggestive of cancer 2. Significant past history tobacco abuse 3. COPD 4. Peripheral artery disease 5. Gangrene left lower extremity 6. Diabetes mellitus. 7. Anemia 8. High blood pressure 9. Gallstones 10. Questionable pancreatic mass. See CT. 11. See past history 03/20/2017. Patient was seen today along with Brandon Rios RN. He has been reevaluated by Dr. Montejo and is planned for an [id number] amputation tomorrow. We certainly agree with this. The patient is excited to have this done. He has been seen in infectious disease consultation by Dr. Leonarda Romo. Her note has been reviewed. One set of blood cultures is growing a gram-negative mary and gram-positive mary. She has changed his antibiotics and he is now on Merrem and vancomycin. We have taken the liberty to start daily INRs in the face of his antibiotics and planned surgery. From a pulmonary standpoint he is doing well. Sputum daily for cytology is pending. The patient is having no sputum production. 03/21/17. The patient had already been taken for his planned AKA this morning. His chart and labs have been reviewed. Case was discussed with Dr. Montejo. Blood cultures obtained 03/15/2017 still have not been identified. Preliminary cultures are growing a gram-negative mary and gram-positive rods. These were verified 03/21/2017 at 8:22 AM. The critical value was reportedly called on 03/19 at 10:39 AM. Is noted that the gram variable mary was sent to reference lab for identification at that time. Repeat blood cultures obtained 03/19/2017 have grown no organisms thus far. Dr. Lei is following along infectious disease consultation. She is managing the patient's antibiotics. Obviously, it is felt the patient's source of infection as his infected leg. INR yesterday was 2.4 and today is 2.1. Presently his Coumadin is on hold secondary to his surgery today. Medications have been reviewed. We made no changes today. Labs been reviewed. White count is 16,900 with 83.4% segs; H&H 7.9/24.7; platelet count 453,000; INR 2.1; creatinine 0.60, BUN 7, electrolytes are normal ; vancomycin trough yesterday was 14.5 03/22/17. The patient was seen today along with Mayuri Frye RN. He had an AKA on the left yesterday and has done well post-op. He was on chronic Coumadin therapy at admission for, we believe, his ischemic leg. Obviously his Coumadin was held prior to surgery and has not been restarted. We are unsure if he was on it for any other reason. He is not being covered with any other blood thinning agent. This will need to be addressed when he is stable from a surgical standpoint if it is felt he needs another anticoagulant. With the amputation, certainly he may not, assuming there is no other medical reason for him to need one. He has no history of a-fib or CVA to our knowledge. From a pulmonary standpoint he is doing well. He denies any shortness of breath or cough. Medications have been reviewed. We made no changes today. Labs have been reviewed. White count is 16,300 with 82.1% segs; H&H 9.1/28.9; platelet count 461,000; INR 1.4; creatinine 0.60, BUN 7, electrolytes are normal ; calcium is low at 8.1 reflected in a low albumin of 2.0, total protein 6.3; total bilirubin 2.10, liver function tests within normal limits with the exception of a minimally elevated AST of 46. 03/23/2017. Patient had a CTA of the abdomen earlier today. That result is pending. The question remains whether or not he will need continued anticoagulation. He is not participating in physical therapy at this time. Nursing staff and other physicians have spoken with the patient regarding this. He states that he will participate once his pain comes under better control. I think this is reasonable. He has a known right upper lung lesion. He is not stable enough for bronchoscopy at this time. This can be pursued at a later date. He has multiple other medical problems that need to be addressed first. Dr. Brower is following along an infectious disease consultation. She is managing the patient's antibiotics. Medications have been reviewed. We made no changes today. Labs been reviewed. White count is 16,100 with 79.9% segs; H&H 9.8/29.8; platelet count 496,000; INR 1.1; creatinine 0.60, BUN 8, electrolytes are normal ; fasting lipoprotein profile showed total cholesterol 104, LDL 64, HDL 27, triglycerides 79 Exam (Progress Note) - Constitutional Vitals: Period Temp Pulse Resp BP Sys/Cho Pulse Ox Last 24 Hr 97.8 F-98.2 F 71-80 16-20 148-191/65-81 95-98 Exam: Chest is hyperinflated with prolonged expiration Heart no gallop Abdomen is nontender and nondistended; bowel sounds are positive [address] Montejo Psychiatric oriented 3 Neurologic long-term motor function is intact Plan: Continue present treatment. Follow-up results of CT of the abdomen when available. Consideration for resumption of anticoagulation if indicated. We will see the patient on Sunday. Dr. Bolton will be on-call this weekend and see the patient if needed. Results - Labs CBC & BMP: 03/23/17 04:55 03/23/17 04:55
--- NOTE | 2017-03-23 12:24 | Hospitalist Progress Note ---
<Delfina Monahan - Last Filed: 03/23/17 12:31> Assessment and Plan (1) Diabetes Status: Chronic Assessment and plan: Hemoglobin A1c is noted at 6.7. The patient reports that he currently takes medications however at the time presentation the patient was unable to recall nor had his medications on his person at that time. We will start Accu-Cheks with sliding scale coverage and provide supportive care. 03/23-continue Accu-Cheks with sliding scale coverage as previously ordered. Current Visit: Yes Qualifiers: Diabetes mellitus type: type 2 Diabetes mellitus complication detail: with unspecified neuropathy (2) Hypertension Status: Acute Assessment and plan: We will monitor blood pressure closely during the clinical encounter. The patient reports that he is currently on medications for his hypertension however he was unable to recall nor had medications on his person at the time of presentation. We will start low-grade calcium channel gaurav and monitor closely. 03/23-continue antihypertensive agents as previously ordered. Current Visit: Yes (3) Gangrene of the left lower extremely Status: Acute Assessment and plan: We will continue wound care and antibiotic therapy as previously ordered. Agree with surgery recommendation for CTA of the right lower extremity due to the patient's severe peripheral vascular disease. Current Visit: Yes Hospitalist: Subjective Interval history: Patient seen and examined; chart reviewed. No significant overnight events reported. Patient continues to verbalize phantom pain to left extremity S/P BKA. Exam - Constitutional Vitals: Period Temp Pulse Resp BP Sys/Cho Pulse Ox Last 24 Hr 97.8 F-98.2 F 71-80 16-20 148-191/65-81 95-98 General appearance: normal weight, no acute distress - Head Head exam: Present: normal inspection, normocephalic, atraumatic - Eye Eye exam: Present: EOMI, conjunctival injection Pupils: Present: NANETTE, normal accommodation - ENT ENT exam: Present: normal exam, normal external ear exam, normal oropharynx - Neck Neck exam: Present: normal inspection. Absent: lymphadenopathy, meningismus, tenderness, thyromegaly - Respiratory Respiratory exam: Present: clear to auscultation bilaterally. Absent: rales, rhonchi, stridor, wheezes - Cardiovascular Cardiovascular exam: Present: regular rate and rhythm. Absent: carotid bruit, diastolic murmur, gallop, JVD, rubs, systolic murmur - GI/Abdominal GI/Abdominal exam: Present: normal bowel sounds, soft - Extremities Exam Extremities exam: Present: other (Left lower extremity) - Back Exam Back exam: Present: normal inspection - Neurological Exam Neurological exam: Present: alert, oriented X3, CN II-XII intact - Psychiatric Psychiatric exam: Present: normal affect, normal mood - Skin Skin exam: Present: normal color, warm, dry Results - Labs CBC & BMP: 03/23/17 04:55 03/23/17 04:55 Lab Results: I have reviewed the past 24 hour labs Quality Measures - VTE Contraindication to Pharmacological VTE Prophylaxis: Clinical assessment deems Pt at low risk, no prophalaxis needed <Shonda Hyatt - Last Filed: 03/23/17 12:54> Assessment and Plan (1) Gangrene of the left lower extremely Status: Acute Current Visit: Yes (2) Septicemia Status: Acute Current Visit: Yes (3) Hypertension Status: Acute Current Visit: Yes (4) Peripheral vascular disease Status: Chronic Current Visit: Yes (5) Diabetes Status: Chronic Current Visit: Yes Qualifiers: Diabetes mellitus type: type 2 Diabetes mellitus complication detail: with unspecified neuropathy (6) Cellulitis of left lower leg Status: Acute Current Visit: Yes Hospitalist: Subjective Interval history: Patient refused PT and after talking to him this am, he agreed to start on Sunday and wants pain meds to be given to him prior to each session.We will increase Lisinopril to 20mg bid, follow response Exam - Constitutional Vitals: Period Temp Pulse Resp BP Sys/Cho Pulse Ox Last 24 Hr 97.8 F-98.2 F 71-80 16-20 148-191/65-81 95-98 Results - Labs CBC & BMP: 03/23/17 04:55 03/23/17 04:55
--- NOTE | 2017-03-23 14:00 | CT Report ---
Exam: CT angio abdomen/femoral Date: 03/23/2017 9:25 AM Comparison: Prior CT chest 11/03/2016 and PET/CT dated 12/11/2016 Indication: History of left [id number] amputation. Peripheral vascular disease Technical: Axial CT imaging was performed from the lung bases through the iliac crest with to the toes. Coronal and sagittal reformatted images were additionally created and submitted for review. 3-D Maximal intensity projection images of the vasculature were additionally created and are available for review. 100 cc of Omnipaque 350 were utilized. Dose reduction: This CT exam was performed using one or more of the following dose reduction techniques: Automated exposure control, automated adjustment of the mA and/or KV according to patient size, or use of iterative reconstruction technique. Total DLP: 1262 mGy*cm Findings: CT angiogram: Abdomen/pelvis. Descending thoracic aorta is nonaneurysmal with minimal scattered atherosclerotic plaque. Celiac and superior mesenteric arteries appear essentially widely patent with minimal atherosclerotic disease but no significant luminal stenosis. There are single bilateral renal arteries visualized which are patent with minimal atherosclerotic plaque and no significant luminal stenosis. The abdominal aorta is nonaneurysmal with circumferential atherosclerotic plaque. Distal abdominal aorta also is normal caliber. Inferior mesenteric artery is patent. At the aortic bifurcation, there is complete occlusion of the left common iliac and external iliac arteries with an indwelling left endovascular stent in place extending to the left common femoral artery. The right common iliac artery is mildly narrowed with multifocal atherosclerotic plaque. There is also multifocal atherosclerotic plaque and at least 50% luminal stenosis within the external iliac artery on the right. Right lower extremity: Post surgical changes are noted in the right groin with an indwelling femoropopliteal graft, which is completely occluded. The [place] superficial femoral artery is completely occluded. Muscular branches and deep femoral branches appear patent. There is reconstitution below the knee with a diminutive but patent distal popliteal artery. There is a two-vessel runoff to the right foot primarily via the posterior tibial and peroneal arteries. The anterior tibial artery appears to branch proximally and is also patent in the upper hob[place] with multifocal atherosclerotic plaque but appears occluded in the mid hobson. Left lower extremity: Again, the left common and external iliac arteries as well as the common femoral artery appear occluded with an indwelling endovascular stent. There is reconstitution at the deep femoral and muscular branches with minimal visualization into the thigh. Postsurgical changes of left "gjxee-eeu-lujj" amputation again noted. Soft tissue analysis: Lung bases: Minimal posterior basilar atelectasis. Somewhat more confluent areas of opacity within the left lung base are noted and a developing pneumonia is not excluded. A trace left pleural effusion is also suspected. There is no pericardial effusion. Indeterminant 0.0 cm soft tissue nodular density within the left lung base appears similar to slightly increased in size when compared to prior CT from October 2016. Liver and gallbladder: No abnormal enhancing lesions. There are several gallstones within the dependent gallbladder. There is no suggestion of intrahepatic or extrahepatic biliary ductal dilatation. Portal vein appears patent. 6 mm blush of contrast enhancement within the right lobe adjacent to the gallbladder fossa is similar prior and otherwise indeterminant but given the stability may represent avascular malformation or other benign vascular lesion. Spleen: Within normal limits. Pancreas: Marked dilatation of the distal pancreatic duct is noted measuring up to 12 mm. At the point of transition within the mid pancreas, there is soft tissue fullness measuring up to 1.9 cm maximum dimension, which is similar to prior. No definite peripancreatic fluid collections or lymphadenopathy is identified. Adrenals: Unremarkable Kidneys: Both kidneys enhance symmetrically. There is a hypodense probable cyst within the right upper pole. Bowel and Mesentery: Small bowel is nondilated. There is prominent stool throughout colon suggesting a degree of fecal stasis/constipation. Appendix appears normal. There is no free fluid/air within the abdomen. The small bowel is nondilated. There is no adenopathy. Retroperitoneum: No enlarged lymph nodes. IVC: Patent. Pelvis: Bladder: Mildly distended but otherwise unremarkable in appearance. Fluid: No free fluid identified. Lymph nodes: No enlarged lymph nodes. Pelvic organs: Unremarkable Osseous structures: Moderate to advanced multilevel degenerative changes noted within the lumbar spine. Impression: 1. No evidence of aortic aneurysm. Multifocal atherosclerotic disease throughout the abdomen/pelvis. 2. Occluded left iliac and iliofemoral endovascular stents with minimal reconstitution/perfusion to the left [id number]-[id number] amputation stump. 3. Multifocal moderate atherosclerotic plaque and luminal stenosis throughout the iliac and common femoral arteries on the right. Occluded right femoropopliteal bypass graft and [place] superficial femoral arteries. Multifocal plaque below the knee with two-vessel runoff. 4. Similar prominent dilatation of the mid pancreatic duct and soft tissue fullness at the area of transition is indeterminate and underlying neoplasm is not excluded. Again consider MRI imaging for further evaluation and to exclude underlying malignancy. 5. New airspace opacities within the left lung base with trace pleural fluid may represent atelectasis or developing pneumonia. There is also a 0.9 cm nodular opacity within the left lung base which is slightly increased in prominence when compared to prior and [place] on subsequent studies. 6. Cholelithiasis with no CT evidence of acute cholecystitis. PROCEDURE INTERPRETED AT [facility] DEPARTMENT OF RADIOLOGY Final Report Signed by: Fabien Harper
--- NOTE | 2017-03-23 14:04 | Pathology Report from [facility] ---
[facility] [place] ACCESSION # : [id number] PATIENT NAME : Josh Roberson ORDERING DR : Tarik Montejo MD CLINICAL HX: Worsening infection in left lower leg POST-OP DX: Same SPECIMEN INFO: Left lower leg GROSS DESCRIPTION: Received fresh labeled with the patients name JOSH ROBERSON is a 59.0 cm left leg above the knee amputation. The skin is brown and hairless with gangrenous changes present involving primarily the second and third toes and a portion of medial calf. The popliteal artery is focally atherosclerotic and partially calcified. A loss control representative section of gangrenous tissue is submitted in cassette A, section of artery submitted in cassette B following decalcification. DIAGNOSIS FOR JOSH ROBERSON: LEFT A-K AMPUTATION: Gangrene; atherosclerosis. COLLECTED DATE: 03/21/2017 [facility] [place] REPORT DATE: 03/22/2017 ELECTRONICALLY SIGNED BY: Tata Sylvester M.D. 03/22/2017 - 9:56:57 MTDD
[2017-03-23] MEDS: WARFARIN 5 MG TABLET PO SCH (17:02)
[2017-03-23] MEDS: LISINOPRIL 20 MG TABLET PO SCH (21:14)
[2017-03-24] MEDS: MORPHINE 2 MG/1 ML SYRINGE IV PRN ×4 (01:30→17:22)
[2017-03-24] MEDS: VANCOMYCIN INJ 1,000 MG in SODIUM CHLORIDE 0.9% 250 ML IV SCH ×3 (01:31→17:23)
[2017-03-24] MEDS: GABAPENTIN 600 MG TABLET PO SCH ×3 (05:45→21:34)
[2017-03-24] MEDS: MEROPENEM 1,000 MG in SODIUM CHLORIDE 0.9% 100 ML IV SCH ×3 (05:45→20:48)
[2017-03-24] MEDS: SODIUM CHLORIDE 0.9% 1,000 ML IV SCH ×3 (05:46→15:55)
[2017-03-24] MEDS ORDERED: MAGNESIUM HYDROXIDE SUSP 30 ML UDCUP PO ONE (07:42)
[2017-03-24] MEDS: INSULIN LISPRO 100 UNIT/ML SUBCUT SCH ×3 (08:22→21:33)
[2017-03-24] MEDS: buPROPion SR 150 MG TABLET PO SCH (08:23)
[2017-03-24] MEDS: LISINOPRIL 20 MG TABLET PO SCH ×2 (08:23→20:48)
[2017-03-24] MEDS: MULTIVITAMIN (BEROCCA) TABLET PO SCH (08:23)
[2017-03-24] MEDS: ATORVASTATIN 10 MG TABLET PO SCH (08:24)
[2017-03-24] MEDS: VERAPAMIL SR 120 MG TABLET PO SCH (08:24)
[2017-03-24] MEDS: CILOSTAZOL 100 MG TABLET PO SCH (08:24)
[2017-03-24] MEDS: FINASTERIDE 5 MG TABLET PO SCH (08:25)
[2017-03-24] MEDS: PANTOPRAZOLE 40 MG TABLET PO SCH (08:25)
[2017-03-24] MEDS: ASCORBIC ACID 500 MG TABLET PO SCH ×2 (08:31→20:48)
[2017-03-24] MEDS: ZINC SULFATE 220 MG CAPSULE PO SCH (08:31)
--- NOTE | 2017-03-24 10:28 | Event Note ---
He has no complaints other than soreness. As we would expect. He is afebrile with stable vital signs and he is alert and oriented his dressing is dry.
--- NOTE | 2017-03-24 11:40 | Hospitalist Progress Note ---
<Natacha Monahanda - Last Filed: 03/24/17 11:31> Assessment and Plan (1) Diabetes Status: Chronic Assessment and plan: Hemoglobin A1c is noted at 6.7. The patient reports that he currently takes medications however at the time presentation the patient was unable to recall nor had his medications on his person at that time. We will start Accu-Cheks with sliding scale coverage and provide supportive care. 03/23-continue Accu-Cheks with sliding scale coverage as previously ordered. 03/24-continue Accu-Cheks with sliding scale coverage as previously ordered Current Visit: Yes Qualifiers: Diabetes mellitus type: type 2 Diabetes mellitus complication detail: with unspecified neuropathy (2) Hypertension Status: Acute Assessment and plan: We will monitor blood pressure closely during the clinical encounter. The patient reports that he is currently on medications for his hypertension however he was unable to recall nor had medications on his person at the time of presentation. We will start low-grade calcium channel gaurav and monitor closely. 03/23-continue antihypertensive agents as previously ordered. Current Visit: Yes (3) Gangrene of the left lower extremely Status: Acute Assessment and plan: We will continue wound care and antibiotic therapy as previously ordered. Agree with surgery recommendation for CTA of the right lower extremity due to the patient's severe peripheral vascular disease. 03/24-continue wound care and antibiotic therapy as previously ordered. Current Visit: Yes Hospitalist: Subjective Interval history: Patient seen and examined; chart reviewed. No significant overnight events. Spoke with patient in great detail regarding refusal of therapy on yesterday. Patient states "It's too soon to start therapy hell; I just got my leg cut off two days ago". Exam - Constitutional Vitals: Period Temp Pulse Resp BP Sys/Cho Pulse Ox Last 24 Hr 96.8 F-98.4 F 70-82 18-20 132-183/60-82 92-99 General appearance: normal weight - Head Head exam: Present: normal inspection, normocephalic, atraumatic - Eye Eye exam: Present: EOMI. Absent: conjunctival injection Pupils: Present: NANETTE, normal accommodation - ENT ENT exam: Present: normal exam, normal external ear exam, normal oropharynx - Neck Neck exam: Present: normal inspection. Absent: lymphadenopathy, meningismus, tenderness, thyromegaly - Respiratory Respiratory exam: Present: clear to auscultation bilaterally. Absent: rales, rhonchi, stridor, wheezes - Cardiovascular Cardiovascular exam: Present: regular rate and rhythm. Absent: carotid bruit, diastolic murmur, gallop, JVD, rubs, systolic murmur - GI/Abdominal GI/Abdominal exam: Present: normal bowel sounds, soft - Extremities Exam Extremities exam: Present: other - Back Exam Back exam: Present: normal inspection - Neurological Exam Neurological exam: Present: alert, oriented X3, CN II-XII intact - Psychiatric Psychiatric exam: Present: normal affect, normal mood - Skin Skin exam: Present: normal color, warm, dry Results - Labs CBC & BMP: 03/23/17 04:55 03/23/17 04:55 Lab Results: I have reviewed the past 24 hour labs Quality Measures - VTE Contraindication to Pharmacological VTE Prophylaxis: Clinical assessment deems Pt at low risk, no prophalaxis needed <Shonda Hyatt - Last Filed: 03/24/17 13:06> Assessment and Plan (1) Gangrene of the left lower extremely Status: Acute Current Visit: Yes (2) Septicemia Status: Acute Current Visit: Yes (3) Hypertension Status: Acute Current Visit: Yes (4) Peripheral vascular disease Status: Chronic Current Visit: Yes (5) Diabetes Status: Chronic Current Visit: Yes Qualifiers: Diabetes mellitus type: type 2 Diabetes mellitus complication detail: with unspecified neuropathy (6) Cellulitis of left lower leg Status: Acute Current Visit: Yes Hospitalist: Subjective Interval history: Patient has agreed to resume PT on Sunday. We will get a DM teaching for him. Exam - Constitutional Vitals: Period Temp Pulse Resp BP Sys/Cho Pulse Ox Last 24 Hr 97.0 F-98.4 F 67-76 18-20 146-183/61-82 94-100 Results - Labs CBC & BMP: 03/23/17 04:55 03/23/17 04:55
[2017-03-24] MEDS ORDERED: GLUCAGON 1 MG VIAL IM PRN (12:13)
[2017-03-24] MEDS ORDERED: DEXTROSE 50% 25 GM/50 ML VIAL IV PRN (12:13)
[2017-03-24] MEDS ORDERED: SODIUM PHOSPHATE ENEMA 133 ML BOTTLE RECTAL PRN (14:00)
[2017-03-24] MEDS: WARFARIN 5 MG TABLET PO SCH (17:23)
[2017-03-25] MEDS: VANCOMYCIN INJ 1,000 MG in SODIUM CHLORIDE 0.9% 250 ML IV SCH ×3 (01:22→17:39)
[2017-03-25] MEDS: MEROPENEM 1,000 MG in SODIUM CHLORIDE 0.9% 100 ML IV SCH ×3 (04:50→20:45)
[2017-03-25] MEDS: GABAPENTIN 600 MG TABLET PO SCH ×3 (05:05→21:08)
[2017-03-25] MEDS: SODIUM CHLORIDE 0.9% 1,000 ML IV SCH ×3 (06:39→17:42)
--- NOTE | 2017-03-25 07:42 | Event Note ---
He has no complaints. The nurses state that he has been refusing physical therapy. He denies stomach pain and is afebrile with stable vital signs. His stump dressing is dry. We discussed the importance of physical therapy.
[2017-03-25] MEDS: INSULIN LISPRO 100 UNIT/ML SUBCUT SCH ×4 (08:23→21:09)
[2017-03-25] MEDS: MORPHINE 2 MG/1 ML SYRINGE IV PRN ×3 (08:26→17:39)
[2017-03-25] MEDS: ZINC SULFATE 220 MG CAPSULE PO SCH (08:27)
[2017-03-25] MEDS: FINASTERIDE 5 MG TABLET PO SCH (08:27)
[2017-03-25] MEDS: PANTOPRAZOLE 40 MG TABLET PO SCH (08:27)
[2017-03-25] MEDS: CILOSTAZOL 100 MG TABLET PO SCH (08:27)
[2017-03-25] MEDS: buPROPion SR 150 MG TABLET PO SCH (08:27)
[2017-03-25] MEDS: LISINOPRIL 20 MG TABLET PO SCH ×2 (08:27→20:47)
[2017-03-25] MEDS: ATORVASTATIN 10 MG TABLET PO SCH (08:27)
[2017-03-25] MEDS: ASCORBIC ACID 500 MG TABLET PO SCH ×2 (08:27→20:47)
[2017-03-25] MEDS: VERAPAMIL SR 120 MG TABLET PO SCH (08:27)
[2017-03-25] MEDS: MULTIVITAMIN (BEROCCA) TABLET PO SCH (08:27)
[2017-03-25 09:26] LABS: Basophils % 0.2 % (0.0-0.8); Eosinophils # 0.1 10*3/uL (0.0-0.87); Eosinophils % 0.8 % (0.00-10.9); Hematocrit 29.3 VOL% (42.0-52.0); Hemoglobin 9.6 GM/DL (14.0-18.0); Immature Granulocytes % 0.6 %; Lymphocytes # 1.7 10*3/uL (1.4-4.0); Lymphocytes % 10.2 % (21.2-54.2); Mean Corpuscular HGB Conc 32.8 GM/DL (32-36); Mean Corpuscular Hemoglobin 30 PG (27-34); Mean Corpuscular Volume 92.7 FL (87-102); Mean Platelet Volume 8.8 FL (9.6-12.0); Monocytes # 0.7 10*3/uL (0.11-0.8); Monocytes % 4.3 % (1.7-12.7); Neutrophils # 13.8 10*3/uL (1.4-7.4); Neutrophils % 83.9 % (38.7-73.9); Platelet Count 496 T/CUMM (130-400); Red Blood Count 3.16 MC/CUMM (3.8-5.5); Red Cell Distribution Width 14.7 % (9.3-17.3); White Blood Count 16.5 T/CUMM (4-12)
[2017-03-25 10:05] LABS: Albumin 1.9 G/DL (3.4-5.0); Bilirubin,Total 0.6 MG/DL (0.2-1.0); Calcium 8.6 MG/DL (8.5-10.1); Magnesium 2.6 MG/DL (1.8-2.4); Osmolality,Calculated 275.8 MOS/KG (273-304); Phosphorous 2.8 MG/DL (2.5-4.9); Potassium 4.3 MMOL/L (3.5-5.1); Total Protein 6.6 G/DL (6.4-8.3)
--- NOTE | 2017-03-25 10:16 | Hospitalist Progress Note ---
<Natacha Monahanda - Last Filed: 03/25/17 10:14> Assessment and Plan (1) Diabetes Status: Chronic Assessment and plan: Hemoglobin A1c is noted at 6.7. The patient reports that he currently takes medications however at the time presentation the patient was unable to recall nor had his medications on his person at that time. We will start Accu-Cheks with sliding scale coverage and provide supportive care. 03/23-continue Accu-Cheks with sliding scale coverage as previously ordered. 03/24-continue Accu-Cheks with sliding scale coverage as previously ordered 03/25-continue Accu-Cheks with sliding scale coverage as previously ordered. Current Visit: Yes Qualifiers: Diabetes mellitus type: type 2 Diabetes mellitus complication detail: with unspecified neuropathy (2) Hypertension Status: Acute Assessment and plan: We will monitor blood pressure closely during the clinical encounter. The patient reports that he is currently on medications for his hypertension however he was unable to recall nor had medications on his person at the time of presentation. We will start low-grade calcium channel gaurav and monitor closely. 03/23-continue antihypertensive agents as previously ordered. 03/25-we will continue all antihypertensive agents as previously ordered. Current Visit: Yes (3) Gangrene of the left lower extremely Status: Acute Assessment and plan: We will continue wound care and antibiotic therapy as previously ordered. Agree with surgery recommendation for CTA of the right lower extremity due to the patient's severe peripheral vascular disease. 03/24-continue wound care and antibiotic therapy as previously ordered. 03/25-continue wound care and antibiotic therapy per surgery recommendation. Current Visit: Yes Hospitalist: Subjective Interval history: Patient seen and examined; chart reviewed. No significant overnight events reported per staff. Case management consultation has been requested for swing bed evaluation. Exam - Constitutional Vitals: Period Temp Pulse Resp BP Sys/Cho Pulse Ox Last 24 Hr 97.2 F-98.7 F 67-78 18-20 150-192/67-79 94-100 General appearance: normal weight, no acute distress - Head Head exam: Present: normal inspection, normocephalic - Eye Eye exam: Present: EOMI, conjunctival injection Pupils: Present: NANETTE, normal accommodation - ENT ENT exam: Present: normal exam, normal external ear exam, normal oropharynx - Neck Neck exam: Present: normal inspection. Absent: lymphadenopathy, meningismus, tenderness, thyromegaly - Respiratory Respiratory exam: Present: clear to auscultation bilaterally. Absent: rales, rhonchi, stridor, wheezes - Cardiovascular Cardiovascular exam: Present: regular rate and rhythm. Absent: carotid bruit, diastolic murmur, gallop, JVD, rubs, systolic murmur - GI/Abdominal GI/Abdominal exam: Present: normal bowel sounds, soft. Absent: tenderness - Extremities Exam Extremities exam: Present: normal capillary refill (Capillary refill normal to right lower extremity; status post amputation to left lower extremity), other ( Left [id number] amputation) - Back Exam Back exam: Present: normal inspection - Neurological Exam Neurological exam: Present: alert, oriented X3, CN II-XII intact - Psychiatric Psychiatric exam: Present: normal affect, normal mood - Skin Skin exam: Present: normal color, warm, dry Results - Labs CBC & BMP: 03/25/17 09:17 03/25/17 09:17 Lab Results: I have reviewed the past 24 hour labs Quality Measures - VTE Contraindication to Pharmacological VTE Prophylaxis: Clinical assessment deems Pt at low risk, no prophalaxis needed <Shonda Hyatt - Last Filed: 03/25/17 13:04> Assessment and Plan (1) Gangrene of the left lower extremely Status: Acute Current Visit: Yes (2) Septicemia Status: Acute Current Visit: Yes (3) Hypertension Status: Acute Current Visit: Yes (4) Peripheral vascular disease Status: Chronic Current Visit: Yes (5) Diabetes Status: Chronic Current Visit: Yes Qualifiers: Diabetes mellitus type: type 2 Diabetes mellitus complication detail: with unspecified neuropathy (6) Cellulitis of left lower leg Status: Acute Current Visit: Yes Hospitalist: Subjective Interval history: Patient has no new complaints. He will resume PT tomorrow.His dressing was changed this am. Exam - Constitutional Vitals: Period Temp Pulse Resp BP Sys/Cho Pulse Ox Last 24 Hr 97.1 F-98.7 F 73-79 18-20 137-192/56-79 94-99 Results - Labs CBC & BMP: 03/25/17 09:17 03/25/17 09:17
[2017-03-25] MEDS: WARFARIN 5 MG TABLET PO SCH (17:39)
[2017-03-26] MEDS: VANCOMYCIN INJ 1,000 MG in SODIUM CHLORIDE 0.9% 250 ML IV SCH ×6 (01:57→22:35)
[2017-03-26] MEDS: MORPHINE 2 MG/1 ML SYRINGE IV PRN ×4 (02:58→19:51)
[2017-03-26] MEDS: MEROPENEM 1,000 MG in SODIUM CHLORIDE 0.9% 100 ML IV SCH ×3 (04:38→17:00)
[2017-03-26] MEDS: SODIUM CHLORIDE 0.9% 1,000 ML IV SCH ×2 (04:39→22:35)
[2017-03-26] MEDS: GABAPENTIN 600 MG TABLET PO SCH ×3 (05:40→22:33)
[2017-03-26 06:14] LABS: Basophils # 0.1 10*3/uL (0.0-0.2); Basophils % 0.4 % (0.0-0.8); Eosinophils # 0.2 10*3/uL (0.0-0.87); Eosinophils % 1.3 % (0.00-10.9); Hematocrit 29.5 VOL% (42.0-52.0); Hemoglobin 9.7 GM/DL (14.0-18.0); Immature Granulocytes % 0.5 %; Immature Granulocytes Absolute 0.08 #; Lymphocytes # 1.8 10*3/uL (1.4-4.0); Mean Corpuscular HGB Conc 32.9 GM/DL (32-36); Mean Corpuscular Hemoglobin 30 PG (27-34); Mean Corpuscular Volume 91.3 FL (87-102); Mean Platelet Volume 8.8 FL (9.6-12.0); Monocytes # 0.8 10*3/uL (0.11-0.8); Monocytes % 4.9 % (1.7-12.7); Neutrophils # 12.4 10*3/uL (1.4-7.4); Neutrophils % 80.9 % (38.7-73.9); Platelet Count 512 T/CUMM (130-400); Red Blood Count 3.23 MC/CUMM (3.8-5.5); Red Cell Distribution Width 14.7 % (9.3-17.3); White Blood Count 15.3 T/CUMM (4-12)
[2017-03-26 06:47] LABS: Bilirubin,Total 1.1 MG/DL (0.2-1.0); Calcium 8.8 MG/DL (8.5-10.1); Magnesium 2.5 MG/DL (1.8-2.4); Osmolality,Calculated 274.7 MOS/KG (273-304); Phosphorous 3.5 MG/DL (2.5-4.9); Potassium 4.4 MMOL/L (3.5-5.1); Total Protein 6.6 G/DL (6.4-8.3)
[2017-03-26] MEDS: INSULIN LISPRO 100 UNIT/ML SUBCUT SCH ×4 (08:12→21:34)
--- NOTE | 2017-03-26 09:32 | Event Note ---
General Surgery Progress Note Chief complaint This patient is a 71-year-old man admitted with gangrene of his left leg treated with left above-knee amputation on 03/21/2017 Interval history No events overnight. Afebrile. Leukocytosis is resolving, but slowly. The patient is refusing to do physical therapy so his placement options are limited right now. Physical exam The patient is afebrile with normal vital signs The dressing on the left leg stump is clean with no evidence of bleeding or infection Labs reviewed Imaging CTA from the weekend reviewed Assessment and plan Patient is doing well. We will encourage him to participate in physical therapy so that he has options for placement. The patient does have disease in his inflow and outflow of his right leg and we can certainly set him up to see a vascular surgeon after his discharge from the hospital to evaluate the blood flow in his right leg.
[2017-03-26] MEDS: CILOSTAZOL 100 MG TABLET PO SCH (09:59)
[2017-03-26] MEDS: LISINOPRIL 20 MG TABLET PO SCH ×2 (09:59→21:32)
[2017-03-26] MEDS: PANTOPRAZOLE 40 MG TABLET PO SCH (10:00)
[2017-03-26] MEDS: MULTIVITAMIN (BEROCCA) TABLET PO SCH (10:00)
[2017-03-26] MEDS: ZINC SULFATE 220 MG CAPSULE PO SCH (10:00)
[2017-03-26] MEDS: ATORVASTATIN 10 MG TABLET PO SCH (10:00)
[2017-03-26] MEDS: VERAPAMIL SR 120 MG TABLET PO SCH (10:00)
[2017-03-26] MEDS: FINASTERIDE 5 MG TABLET PO SCH (10:00)
[2017-03-26] MEDS: buPROPion SR 150 MG TABLET PO SCH (10:00)
[2017-03-26] MEDS: ASCORBIC ACID 500 MG TABLET PO SCH ×2 (10:00→21:33)
--- NOTE | 2017-03-26 10:43 | Hospitalist Progress Note ---
<Delfina Monahan - Last Filed: 03/26/17 10:36> Assessment and Plan (1) Diabetes Status: Chronic Assessment and plan: Hemoglobin A1c is noted at 6.7. The patient reports that he currently takes medications however at the time presentation the patient was unable to recall nor had his medications on his person at that time. We will start Accu-Cheks with sliding scale coverage and provide supportive care. 03/23-continue Accu-Cheks with sliding scale coverage as previously ordered. 03/24-continue Accu-Cheks with sliding scale coverage as previously ordered 03/25-continue Accu-Cheks with sliding scale coverage as previously ordered. 03/26-continue Accu-Cheks with sliding scale coverage as previously ordered. Current Visit: Yes Qualifiers: Diabetes mellitus type: type 2 Diabetes mellitus complication detail: with unspecified neuropathy (2) Hypertension Status: Acute Assessment and plan: We will monitor blood pressure closely during the clinical encounter. The patient reports that he is currently on medications for his hypertension however he was unable to recall nor had medications on his person at the time of presentation. We will start low-grade calcium channel gaurav and monitor closely. 03/23-continue antihypertensive agents as previously ordered. 03/25-we will continue all antihypertensive agents as previously ordered. Current Visit: Yes (3) Gangrene of the left lower extremely Status: Acute Assessment and plan: We will continue wound care and antibiotic therapy as previously ordered. Agree with surgery recommendation for CTA of the right lower extremity due to the patient's severe peripheral vascular disease. 03/24-continue wound care and antibiotic therapy as previously ordered. 03/25-continue wound care and antibiotic therapy per surgery recommendation. 03/26-hopefully the patient will participate in physical therapy today. We will continue wound care and antibiotic therapy per surgery recommendation. Current Visit: Yes Hospitalist: Subjective Interval history: Patient seen and examined. Chart reviewed. No significant overnight events. Patient reports that he is "ready" for physical therapy. He had multiple refusals of physical therapy on this weekend. He attributed his refusals to the recent amputation of his left lower leg. Case management has been consulted to assist with possible placement at the time of discharge. Exam - Constitutional Vitals: Period Temp Pulse Resp BP Sys/Cho Pulse Ox Last 24 Hr 97.1 F-98.4 F 73-87 16-20 137-156/56-73 94-97 General appearance: normal weight, no acute distress - Head Head exam: Present: normal inspection, normocephalic - Eye Eye exam: Present: EOMI. Absent: conjunctival injection Pupils: Present: NANETTE, normal accommodation - ENT ENT exam: Present: normal exam, normal external ear exam, normal oropharynx - Neck Neck exam: Present: normal inspection. Absent: lymphadenopathy, meningismus, tenderness, thyromegaly - Respiratory Respiratory exam: Present: clear to auscultation bilaterally. Absent: rales, rhonchi, stridor, wheezes - Cardiovascular Cardiovascular exam: Present: regular rate and rhythm. Absent: carotid bruit, diastolic murmur, gallop, JVD, rubs, systolic murmur - GI/Abdominal GI/Abdominal exam: Present: normal bowel sounds, soft - Extremities Exam Extremities exam: Present: other (Left below-knee amputation) - Neurological Exam Neurological exam: Present: alert, oriented X3, CN II-XII intact - Psychiatric Psychiatric exam: Present: normal affect, normal mood - Skin Skin exam: Present: normal color, warm, dry Results - Labs CBC & BMP: 03/26/17 05:50 03/26/17 05:50 Lab Results: I have reviewed the past 24 hour labs Quality Measures - VTE Contraindication to Pharmacological VTE Prophylaxis: Clinical assessment deems Pt at low risk, no prophalaxis needed Specialty Discharge - Follow Up or Referrals Follow up with: Tarik Montejo MD [Physician] - ( 3 weeks & will need staple removal on this day also) <Shonda Hyatt - Last Filed: 03/26/17 13:05> Assessment and Plan (1) Gangrene of the left lower extremely Status: Acute Current Visit: Yes (2) Septicemia Status: Acute Current Visit: Yes (3) Hypertension Status: Acute Current Visit: Yes (4) Peripheral vascular disease Status: Chronic Current Visit: Yes (5) Diabetes Status: Chronic Current Visit: Yes Qualifiers: Diabetes mellitus type: type 2 Diabetes mellitus complication detail: with unspecified neuropathy (6) Cellulitis of left lower leg Status: Acute Current Visit: Yes Hospitalist: Subjective Interval history: Patient seen. No new complaints. Will add HCTZ 12.5mg to his bp regime, follow response.BMP in am Exam - Constitutional Vitals: Period Temp Pulse Resp BP Sys/Cho Pulse Ox Last 24 Hr 97.6 F-98.4 F 73-87 16-20 139-156/66-75 94-97 Results - Labs CBC & BMP: 03/26/17 05:50 03/26/17 05:50
--- NOTE | 2017-03-26 11:59 | Pulmonology Progress Note ---
Pulmonary - PN: Subj Interval history: Dean Herring, [facility]-, acting as scribe for Dr. Cory High Mr. Roberson is a 71-year-old -[place] male who we saw in initial pulmonary consultation on 03/19/2017. At that time, our impressions were: 1. 12 mm right upper lung lesion stable by CT criteria since October 2016. December 2016 PET scan ordered by [facility] shows activity suggestive of cancer 2. Significant past history tobacco abuse 3. COPD 4. Peripheral artery disease 5. Gangrene left lower extremity 6. Diabetes mellitus. 7. Anemia 8. High blood pressure 9. Gallstones 10. Questionable pancreatic mass. See CT. 11. See past history 03/20/2017. Patient was seen today along with Brandon Rios RN. He has been reevaluated by Dr. Montejo and is planned for an [id number] amputation tomorrow. We certainly agree with this. The patient is excited to have this done. He has been seen in infectious disease consultation by Dr. Leonarda Romo. Her note has been reviewed. One set of blood cultures is growing a gram-negative mary and gram-positive mary. She has changed his antibiotics and he is now on Merrem and vancomycin. We have taken the liberty to start daily INRs in the face of his antibiotics and planned surgery. From a pulmonary standpoint he is doing well. Sputum daily for cytology is pending. The patient is having no sputum production. 03/21/17. The patient had already been taken for his planned AKA this morning. His chart and labs have been reviewed. Case was discussed with Dr. Montejo. Blood cultures obtained 03/15/2017 still have not been identified. Preliminary cultures are growing a gram-negative mary and gram-positive rods. These were verified 03/21/2017 at 8:22 AM. The critical value was reportedly called on 03/19 at 10:39 AM. Is noted that the gram variable mary was sent to reference lab for identification at that time. Repeat blood cultures obtained 03/19/2017 have grown no organisms thus far. Dr. Lei is following along infectious disease consultation. She is managing the patient's antibiotics. Obviously, it is felt the patient's source of infection as his infected leg. INR yesterday was 2.4 and today is 2.1. Presently his Coumadin is on hold secondary to his surgery today. Medications have been reviewed. We made no changes today. Labs been reviewed. White count is 16,900 with 83.4% segs; H&H 7.9/24.7; platelet count 453,000; INR 2.1; creatinine 0.60, BUN 7, electrolytes are normal ; vancomycin trough yesterday was 14.5 03/22/17. The patient was seen today along with Mayuri Frye RN. He had an AKA on the left yesterday and has done well post-op. He was on chronic Coumadin therapy at admission for, we believe, his ischemic leg. Obviously his Coumadin was held prior to surgery and has not been restarted. We are unsure if he was on it for any other reason. He is not being covered with any other blood thinning agent. This will need to be addressed when he is stable from a surgical standpoint if it is felt he needs another anticoagulant. With the amputation, certainly he may not, assuming there is no other medical reason for him to need one. He has no history of a-fib or CVA to our knowledge. From a pulmonary standpoint he is doing well. He denies any shortness of breath or cough. Medications have been reviewed. We made no changes today. Labs have been reviewed. White count is 16,300 with 82.1% segs; H&H 9.1/28.9; platelet count 461,000; INR 1.4; creatinine 0.60, BUN 7, electrolytes are normal ; calcium is low at 8.1 reflected in a low albumin of 2.0, total protein 6.3; total bilirubin 2.10, liver function tests within normal limits with the exception of a minimally elevated AST of 46. 03/23/2017. Patient had a CTA of the abdomen earlier today. That result is pending. The question remains whether or not he will need continued anticoagulation. He is not participating in physical therapy at this time. Nursing staff and other physicians have spoken with the patient regarding this. He states that he will participate once his pain comes under better control. I think this is reasonable. He has a known right upper lung lesion. He is not stable enough for bronchoscopy at this time. This can be pursued at a later date. He has multiple other medical problems that need to be addressed first. Dr. Brower is following along an infectious disease consultation. She is managing the patient's antibiotics. Medications have been reviewed. We made no changes today. Labs been reviewed. White count is 16,100 with 79.9% segs; H&H 9.8/29.8; platelet count 496,000; INR 1.1; creatinine 0.60, BUN 8, electrolytes are normal ; fasting lipoprotein profile showed total cholesterol 104, LDL 64, HDL 27, triglycerides 79 03/26/17. The patient was seen today along with Gianna Kimball RN. He was participating in physical therapy when we entered the room. He denied any pain at that time. He states that his previous physician at the [facility] in [place] has retired and that he is now followed by someone else. We have asked him to call the [facility] and get the name of that person. The CTA of the abdomen is noted. The possibly of pancreatic CA has been raised. He is now back on Coumadin. He will need an outpatient PET scan and this will probably need to be done at the [facility]. Medications have been reviewed. Labs have been reviewed. Exam (Progress Note) - Constitutional Vitals: Period Temp Pulse Resp BP Sys/Cho Pulse Ox Last 24 Hr 97.1 F-98.4 F 73-87 16-20 137-156/56-73 94-97 Exam: Chest is hyperinflated with prolonged expiration Heart no gallop Abdomen is nontender and nondistended; bowel sounds are positive [address] Montejo Psychiatric oriented 3 Neurologic long-term motor function is intact Plan: Continue present treatment. The patient is to call and get the name of the provider who is following him now at the [facility]. He will need an outpatient PET scan at some point once discharged and this will probably need to be done at the [facility]. Results - Labs CBC & BMP: 03/26/17 05:50 03/26/17 05:50 Specialty Discharge - Follow Up or Referrals Follow up with: Tarik Montejo MD [Physician] - ( 3 weeks & will need staple removal on this day also)
[2017-03-26] MEDS: hydroCHLOROthiazide 12.5 MG CAPSULE PO SCH (13:51)
[2017-03-26] MEDS: WARFARIN 5 MG TABLET PO SCH (17:00)
[2017-03-27] MEDS: MEROPENEM 1,000 MG in SODIUM CHLORIDE 0.9% 100 ML IV SCH ×3 (02:05→18:15)
[2017-03-27] MEDS: MORPHINE 2 MG/1 ML SYRINGE IV PRN ×2 (03:04→22:16)
[2017-03-27 05:44] LABS: Basophils # 0.1 10*3/uL (0.0-0.2); Basophils % 0.3 % (0.0-0.8); Eosinophils # 0.2 10*3/uL (0.0-0.87); Eosinophils % 1.4 % (0.00-10.9); Hematocrit 28.7 VOL% (42.0-52.0); Hemoglobin 9.3 GM/DL (14.0-18.0); Immature Granulocytes % 0.6 %; Lymphocytes % 12.4 % (21.2-54.2); Mean Corpuscular HGB Conc 32.4 GM/DL (32-36); Mean Corpuscular Hemoglobin 30 PG (27-34); Mean Corpuscular Volume 93.8 FL (87-102); Mean Platelet Volume 8.7 FL (9.6-12.0); Monocytes # 0.9 10*3/uL (0.11-0.8); Monocytes % 5.4 % (1.7-12.7); Neutrophils # 13.1 10*3/uL (1.4-7.4); Neutrophils % 79.9 % (38.7-73.9); Platelet Count 468 T/CUMM (130-400); Red Blood Count 3.06 MC/CUMM (3.8-5.5); Red Cell Distribution Width 14.7 % (9.3-17.3); White Blood Count 16.4 T/CUMM (4-12)
[2017-03-27] MEDS: GABAPENTIN 600 MG TABLET PO SCH ×3 (06:06→22:15)
[2017-03-27 06:18] LABS: Calcium 8.7 MG/DL (8.5-10.1); Osmolality,Calculated 284.7 MOS/KG (273-304); Potassium 4.5 MMOL/L (3.5-5.1)
[2017-03-27] MEDS: INSULIN LISPRO 100 UNIT/ML SUBCUT SCH ×4 (08:30→22:15)
[2017-03-27] MEDS: LISINOPRIL 20 MG TABLET PO SCH ×3 (10:34→22:15)
[2017-03-27] MEDS: FINASTERIDE 5 MG TABLET PO SCH ×2 (10:34→11:23)
[2017-03-27] MEDS: MULTIVITAMIN (BEROCCA) TABLET PO SCH ×2 (10:34→11:22)
[2017-03-27] MEDS: hydroCHLOROthiazide 12.5 MG CAPSULE PO SCH ×2 (10:34→11:24)
[2017-03-27] MEDS: ATORVASTATIN 10 MG TABLET PO SCH ×2 (10:34→11:23)
[2017-03-27] MEDS: CILOSTAZOL 100 MG TABLET PO SCH ×2 (10:34→11:23)
[2017-03-27] MEDS: VERAPAMIL SR 120 MG TABLET PO SCH ×2 (10:34→11:23)
[2017-03-27] MEDS: ZINC SULFATE 220 MG CAPSULE PO SCH ×2 (10:35→11:24)
[2017-03-27] MEDS: ASCORBIC ACID 500 MG TABLET PO SCH ×3 (10:35→22:15)
[2017-03-27] MEDS: PANTOPRAZOLE 40 MG TABLET PO SCH ×2 (10:35→11:24)
[2017-03-27] MEDS: buPROPion SR 150 MG TABLET PO SCH ×2 (10:35→11:24)
--- NOTE | 2017-03-27 10:43 | Event Note ---
General Surgery Progress Note Chief complaint This patient is a 71-year-old man admitted with gangrene of his left leg treated with left above-knee amputation on 03/21/2017 Interval history No events overnight. Pain is well controlled. White blood cell count is still 16,000. Patient is afebrile. Physical exam The patient is afebrile with normal vital signs Incision is clean and dry with no evidence of infection or bleeding Labs reviewed Imaging None new Assessment and plan Continue antibiotics per infectious disease for positive blood cultures on admission. The incision itself looks clean and I do not see any indication for antibiotics based on the wound itself. The patient will participate in physical therapy and we will look at rehab placement.
--- NOTE | 2017-03-27 11:05 | Magnetic Resonance Report ---
MRI abdomen Indication: Pancreatic mass Technique: Axial and coronal imaging of the abdomen was performed both prior to and after contrast. Contrast dose is 15 cc Dotarem. Computer reconstructions of the biliary and pancreatic ducts are generated. Comparison: CT 23 March 2017, MRI 14 July 2010 Findings: There is some breathing motion on some of the sequences limiting fine detail. Calculi are present within the lumen of gallbladder. The distal pancreatic duct is dilated up to 1.1 cm and there is atrophy of the distal pancreas. This abruptly narrows in body of the pancreas. Similar changes were present to a slightly lesser degree on the previous MRI. No distinct pancreatic mass or abnormal enhancement is present within this area of the pancreas or remaining pancreas. Cystic areas present in the right kidney of similar to CT appearance. Liver spleen and adrenal glands appear within normal limits for MRI. Impression: Dilated distal pancreatic duct and atrophy of the distal pancreas. No definite pancreatic mass identified although detail is limited on some sequences from breathing motion. Similar changes were present on the previous exam in 2009 to a lesser degree.. PROCEDURE INTERPRETED AT [facility] DEPARTMENT OF RADIOLOGY Final Report Signed by: Dr. Dillon Carlisle
[2017-03-27] MEDS: ACETAMINOPHEN 325 MG TABLET PO PRN (11:22)
--- NOTE | 2017-03-27 11:31 | Pulmonology Progress Note ---
Pulmonary - PN: Subj Interval history: Dean Herring, [facility]-, acting as scribe for Dr. Cory High Mr. Roberson is a 71-year-old -[place] male who we saw in initial pulmonary consultation on 03/19/2017. At that time, our impressions were: 1. 12 mm right upper lung lesion stable by CT criteria since October 2016. December 2016 PET scan ordered by [facility] shows activity suggestive of cancer 2. Significant past history tobacco abuse 3. COPD 4. Peripheral artery disease 5. Gangrene left lower extremity 6. Diabetes mellitus. 7. Anemia 8. High blood pressure 9. Gallstones 10. Questionable pancreatic mass. See CT. 11. See past history 03/20/2017. Patient was seen today along with Brandon Rios RN. He has been reevaluated by Dr. Montejo and is planned for an qqcnu-rlb-[id number] amputation tomorrow. We certainly agree with this. The patient is excited to have this done. He has been seen in infectious disease consultation by Dr. Leonarda Romo. Her note has been reviewed. One set of blood cultures is growing a gram-negative mary and gram-positive mary. She has changed his antibiotics and he is now on Merrem and vancomycin. We have taken the liberty to start daily INRs in the face of his antibiotics and planned surgery. From a pulmonary standpoint he is doing well. Sputum daily for cytology is pending. The patient is having no sputum production. 03/21/17. The patient had already been taken for his planned AKA this morning. His chart and labs have been reviewed. Case was discussed with Dr. Montejo. Blood cultures obtained 03/15/2017 still have not been identified. Preliminary cultures are growing a gram-negative mary and gram-positive rods. These were verified 03/21/2017 at 8:22 AM. The critical value was reportedly called on 03/19 at 10:39 AM. Is noted that the gram variable mary was sent to reference lab for identification at that time. Repeat blood cultures obtained 03/19/2017 have grown no organisms thus far. Dr. Lei is following along infectious disease consultation. She is managing the patient's antibiotics. Obviously, it is felt the patient's source of infection as his infected leg. INR yesterday was 2.4 and today is 2.1. Presently his Coumadin is on hold secondary to his surgery today. Medications have been reviewed. We made no changes today. Labs been reviewed. White count is 16,900 with 83.4% segs; H&H 7.9/24.7; platelet count 453,000; INR 2.1; creatinine 0.60, BUN 7, electrolytes are normal ; vancomycin trough yesterday was 14.5 03/22/17. The patient was seen today along with Mayuri Frye RN. He had an AKA on the left yesterday and has done well post-op. He was on chronic Coumadin therapy at admission for, we believe, his ischemic leg. Obviously his Coumadin was held prior to surgery and has not been restarted. We are unsure if he was on it for any other reason. He is not being covered with any other blood thinning agent. This will need to be addressed when he is stable from a surgical standpoint if it is felt he needs another anticoagulant. With the amputation, certainly he may not, assuming there is no other medical reason for him to need one. He has no history of a-fib or CVA to our knowledge. From a pulmonary standpoint he is doing well. He denies any shortness of breath or cough. Medications have been reviewed. We made no changes today. Labs have been reviewed. White count is 16,300 with 82.1% segs; H&H 9.1/28.9; platelet count 461,000; INR 1.4; creatinine 0.60, BUN 7, electrolytes are normal ; calcium is low at 8.1 reflected in a low albumin of 2.0, total protein 6.3; total bilirubin 2.10, liver function tests within normal limits with the exception of a minimally elevated AST of 46. 03/23/2017. Patient had a CTA of the abdomen earlier today. That result is pending. The question remains whether or not he will need continued anticoagulation. He is not participating in physical therapy at this time. Nursing staff and other physicians have spoken with the patient regarding this. He states that he will participate once his pain comes under better control. I think this is reasonable. He has a known right upper lung lesion. He is not stable enough for bronchoscopy at this time. This can be pursued at a later date. He has multiple other medical problems that need to be addressed first. Dr. Brower is following along an infectious disease consultation. She is managing the patient's antibiotics. Medications have been reviewed. We made no changes today. Labs been reviewed. White count is 16,100 with 79.9% segs; H&H 9.8/29.8; platelet count 496,000; INR 1.1; creatinine 0.60, BUN 8, electrolytes are normal ; fasting lipoprotein profile showed total cholesterol 104, LDL 64, HDL 27, triglycerides 79 03/26/17. The patient was seen today along with Gianna Kimball RN. He was participating in physical therapy when we entered the room. He denied any pain at that time. He states that his previous physician at the [facility] [place] has retired and that he is now followed by someone else. We have asked him to call the [facility] and get the name of that person. The CTA of the abdomen is noted. The possibly of pancreatic CA has been raised. He is now back on Coumadin. He will need an outpatient PET scan and this will probably need to be done at the [facility]. Medications have been reviewed. Labs have been reviewed. 03/27/2017. The patient was seen today along with Gianna Kimball RN. A female family member was also present. The patient had just returned from an MRI of the abdomen. That result is pending at the time of this dictation. He states that he participated in therapy yesterday and is to have therapy again today. The plan is for the patient to discharge at some point to [facility]. We have discussed the case with Dr. Hyatt today. Again, at some point this patient needs an outpatient PET scan given the findings on CT of the chest as well as CTA of the abdomen. This can be done at the [facility] in [place] where his primary physicians are. From a pulmonary standpoint the patient is doing well. He denies any increased shortness of breath or cough. Medications have been reviewed. We made no changes today. Labs been reviewed. White count is 16,400 with 79.9% segs; H&H 9.3/28.7; platelet count 168,000; creatinine 0.70, BUN 17, electrolytes are normal; vancomycin trough yesterday was elevated at 24.0. Note, pharmacology is managing the patient's vancomycin. Microbiology has been reviewed. Most recent blood cultures are negative. The initial blood cultures obtained 03/15/2017 and sent to a reference lab for identification still have not been reported. They are still showing gram- negative rods and gram-positive rods. Exam (Progress Note) - Constitutional Vitals: Period Temp Pulse Resp BP Sys/Cho Pulse Ox Last 24 Hr 97.0 F-98.7 F 68-77 18-20 138-165/63-76 99-100 Exam: Chest is hyperinflated with prolonged expiration; wheeze free Heart no gallop Abdomen is nontender and nondistended; bowel sounds are positive [address] Montejo Psychiatric oriented 3 Neurologic long-term motor function is intact Plan: Patient is stable from a pulmonary standpoint. As discussed with Dr. Hyatt, he needs to follow-up with pulmonary at the [facility]. He will need an outpatient PET scan. We have nothing further to add at this time. He is back on his anticoagulation. We will sign off. Please reconsult as needed. Results - Labs CBC & BMP: 03/27/17 05:30 03/27/17 05:30 Specialty Discharge - Follow Up or Referrals Follow up with: Tarik Montejo MD [Physician] - ( 3 weeks & will need staple removal on this day also)
[2017-03-27] MEDS: SODIUM CHLORIDE 0.9% 1,000 ML IV SCH (12:24)
[2017-03-27] MEDS: VANCOMYCIN INJ 1,000 MG in SODIUM CHLORIDE 0.9% 250 ML IV SCH ×2 (12:48→23:36)
[2017-03-27 14:29] LABS: Apearance,Urine CLEAR (Clear); Bilirubin,Urine Negative (Negative); Blood, Urine Negative (Negative); Glucose,Urine (UA) 150 mg/dL (Negative); Ketones,Urine Negative (Negative); Mucus,Urine Occasional /LPF (Occasional); Nitrite,Urine Negative (Negative); Protein,Urine Negative; Squamous Epithelial Cell,Urine Occasional /HPF (0-10); Urine Color Yellow (Yellow); Urine Specific Gravity 1.009 (1.001-1.035); WBC,Urine <1 /HPF (0-6)
--- NOTE | 2017-03-27 14:52 | Hospitalist Progress Note ---
Assessment and Plan (1) Gangrene of the left lower extremely Status: Acute Assessment and plan: s/p AKA amputation Plan continue wound dressings, PT, follow Surgery and ID's recommendations For possible Rehab dc in am Current Visit: Yes (2) Septicemia Status: Acute Assessment and plan: Patient has polymicrobial septicemia with gram-positive rods and gram-negative rods isolated from blood cultures done on admission. Source of the infection is likely that left leg wound with cellulitis. Repeat blood cultures from yesterday negative to date. Original blood culture sent out to reference lab. He is better now that he had AKA though there is still significant leukocytosis. Plan Follow ID's recommendation Current Visit: Yes (3) Hypertension Status: Acute Assessment and plan: will dc IVF Current Visit: Yes (4) Peripheral vascular disease Status: Chronic Assessment and plan: continue with meds, Lipid panel-noted Current Visit: Yes (5) Diabetes Status: Chronic Assessment and plan: HbA1c level-6.6, continue current regime Current Visit: Yes Qualifiers: Diabetes mellitus type: type 2 Diabetes mellitus complication detail: with unspecified neuropathy (6) Cellulitis of left lower leg Status: Acute Assessment and plan: He status post AKA. Continue wound dressings and PT Current Visit: Yes (7) Lesion of lung Status: Acute Assessment and plan: 12 mm right upper lung lesion stable by CT criteria since October 2016. December 2016 PET scan ordered by [facility] shows activity suggestive of cancer.Patient also has Questionable pancreatic mass on CT. Dr Wagner wants to repeat an outpatient PET scan Current Visit: Yes Hospitalist: Subjective Interval history: patient seen this am. Dr Wagner wants him to have a PET scan for his lung and pancreas lesions as outpatient. He is doing his PT sessions. We will most likely dc in am. Exam - Constitutional Vitals: Period Temp Pulse Resp BP Sys/Cho Pulse Ox Last 24 Hr 97.0 F-98.7 F 68-103 18-20 138-165/63-76 97-100 General appearance: no acute distress - Head Head exam: Present: normal inspection - Respiratory Respiratory exam: Present: clear to auscultation bilaterally - Cardiovascular Cardiovascular exam: Present: regular rate and rhythm - GI/Abdominal GI/Abdominal exam: Present: normal bowel sounds - Extremities Exam Extremities exam: Present: other (left AKA) Results - Labs CBC & BMP: 03/27/17 05:30 03/27/17 05:30 Lab Results: I have reviewed the past 24 hour labs Quality Measures - VTE Contraindication to Pharmacological VTE Prophylaxis: Clinical assessment deems Pt at low risk, no prophalaxis needed Specialty Discharge - Follow Up or Referrals Follow up with: Tarik Montejo MD [Physician] - ( 3 weeks & will need staple removal on this day also)
[2017-03-27] MEDS: WARFARIN 5 MG TABLET PO SCH (18:15)
[2017-03-28] MEDS: MEROPENEM 1,000 MG in SODIUM CHLORIDE 0.9% 100 ML IV SCH ×2 (02:48→09:47)
[2017-03-28 06:33] LABS: Basophils # 0.1 10*3/uL (0.0-0.2); Basophils % 0.4 % (0.0-0.8); Eosinophils # 0.2 10*3/uL (0.0-0.87); Eosinophils % 1.4 % (0.00-10.9); Hematocrit 30.4 VOL% (42.0-52.0); Hemoglobin 9.8 GM/DL (14.0-18.0); Immature Granulocytes % 0.6 %; Immature Granulocytes Absolute 0.08 #; Lymphocytes # 1.7 10*3/uL (1.4-4.0); Lymphocytes % 12.8 % (21.2-54.2); Mean Corpuscular HGB Conc 32.2 GM/DL (32-36); Mean Corpuscular Hemoglobin 30 PG (27-34); Mean Corpuscular Volume 94.1 FL (87-102); Mean Platelet Volume 8.9 FL (9.6-12.0); Monocytes # 0.7 10*3/uL (0.11-0.8); Monocytes % 5.3 % (1.7-12.7); Neutrophils # 10.8 10*3/uL (1.4-7.4); Neutrophils % 79.5 % (38.7-73.9); Platelet Count 502 T/CUMM (130-400); Red Blood Count 3.23 MC/CUMM (3.8-5.5); White Blood Count 13.6 T/CUMM (4-12)
[2017-03-28] MEDS: GABAPENTIN 600 MG TABLET PO SCH ×2 (06:57→13:56)
[2017-03-28 07:12] LABS: Albumin 2.2 G/DL (3.4-5.0); Bilirubin,Total 0.8 MG/DL (0.2-1.0); Calcium 9.1 MG/DL (8.5-10.1); Magnesium 2.5 MG/DL (1.8-2.4); Osmolality,Calculated 281.8 MOS/KG (273-304); Phosphorous 3.3 MG/DL (2.5-4.9); Potassium 4.9 MMOL/L (3.5-5.1); Total Protein 7.2 G/DL (6.4-8.3)
[2017-03-28] MEDS: INSULIN LISPRO 100 UNIT/ML SUBCUT SCH ×2 (08:19→12:38)
--- NOTE | 2017-03-28 08:45 | Event Note ---
General Surgery Progress Note Chief complaint This patient is a 71-year-old man admitted with gangrene of his left leg treated with left above-knee amputation on 03/21/2017 Interval history No events overnight. Patient continues to refuse physical therapy. White blood cell count is improving. Patient is afebrile. Physical exam The patient is afebrile with normal vital signs Incision is clean and dry with no evidence of infection or bleeding. There is some bruising or necrotic tissue at the medial aspect of the wound but nothing that requires debridement or further wound care right now this does not appear infected. Labs reviewed Imaging None new Assessment and plan Continue antibiotics per infectious disease for positive blood cultures on admission. The incision itself looks clean and I do not see any indication for antibiotics based on the wound itself. The patient says he will participate in physical therapy and we will look at rehab placement.
[2017-03-28] MEDS ORDERED: TUBERCULIN SKIN TEST 0.1 ML SYRINGE INTRADERM ONE (09:00)
--- NOTE | 2017-03-28 09:07 | Case Mgmt Physician Query Form ---
TB Signs and Symptoms Screening ([place]) INSTRUCTIONS: To be completed annually on residents/staff with a significant Tuberculin Skin Test (TST) upon admission/hire or a prior significant TST. To be completed on all staff at hire. Please respond to each listed symptom with an (X) in either the "YES" or "NO" box. Do you currently have any of the following symptoms: YES NO ( ) ( x) A cough If yes, is it: ( ) Productive ( ) Non- productive ( ) (x ) Hemoptysis (spitting up blood) ( ) (x) Chest pains ( ) (x ) Weight Loss ( ) (x ) Fever ( ) ( x) Night Sweats ( ) (x ) Weakness ( ) (x ) Loss of Appetite ( ) (x ) Difficulty Breathing If you answered YES" to any of the above questions, how long have symptoms been present? Comments: If you have any questions, please contact me . Thank you, Neha CARRERA Email: [email or web address] [facility]
[2017-03-28] MEDS: ATORVASTATIN 10 MG TABLET PO SCH (09:43)
[2017-03-28] MEDS: hydroCHLOROthiazide 12.5 MG CAPSULE PO SCH (09:43)
[2017-03-28] MEDS: ZINC SULFATE 220 MG CAPSULE PO SCH (09:43)
[2017-03-28] MEDS: CILOSTAZOL 100 MG TABLET PO SCH (09:44)
[2017-03-28] MEDS: buPROPion SR 150 MG TABLET PO SCH (09:44)
[2017-03-28] MEDS: ASCORBIC ACID 500 MG TABLET PO SCH (09:45)
[2017-03-28] MEDS: PANTOPRAZOLE 40 MG TABLET PO SCH (09:45)
[2017-03-28] MEDS: LISINOPRIL 20 MG TABLET PO SCH (09:45)
[2017-03-28] MEDS: FINASTERIDE 5 MG TABLET PO SCH (09:45)
[2017-03-28] MEDS: MULTIVITAMIN (BEROCCA) TABLET PO SCH (09:45)
[2017-03-28] MEDS: VERAPAMIL SR 120 MG TABLET PO SCH (09:45)
--- NOTE | 2017-03-28 11:11 | Discharge Summary ---
<Delfina Monahan - Last Filed: 03/28/17 10:59> Hospital Course - Hospital Course Hospital Course: This is a chronically ill 71-year-old male that presented to the ED at [facility] on morning of March 15, 2017 for the evaluation of a left leg and foot wound. The patient has a medical history significant for hypertension, nlj-knashnv-pbgsnezol diabetes mellitus, and peripheral vascular disease. Patient has surgical history significant for femoral-popliteal bypass to the right leg. The patient reported the onset of symptoms in August of this year. He reported that he was being seen at the [facility] in [place] for the above complaint. He noticed several days prior to presentation that his second digit on his left foot had become deeply discoloration and eventually became painful. This prompted him to present to the ED for further evaluation. The patient was assessed at the time of ED presentation. Patient's blood pressure was noted at 167/84. In addition the patient was mildly tachycardic with a heart rate of 107 and was experiencing a low-grade temperature with a temperature noted at 99.7. Labs were obtained which were significant for white blood cell count is 17.6, hemoglobin 11.0, hematocrit 32.0, sodium 131, BUN 21, glucose 128, hemoglobin A1c 7.0, total bilirubin 2.90, AST 49, albumin 2.9, and HDL cholesterol at 36. Chest x-ray reported chronic lung changes however no acute cardiopulmonary processes were noted. X-ray of the right foot was obtained which was essentially unremarkable for any definitive evidence of abnormality. The patient was subsequently admitted to the hospitalist service for continuation of care. Empiric antibiotics and gentle rehydration was initiated at the time of admission. A general surgery consultation was requested for the evaluation of the patient's left leg. Upon evaluation of the patient's CT scan, a pulmonary consultation was requested. The the patient was evaluated and recommendations were given. On March 19, 2017, chest CT on March 21, 2017, the patient subsequently underwent left [id number]-fdl-ircw amputation under the direction of Dr. Tarik Montejo. Blood cultures were obtained at the time of ED presentation; which were significant for the presence of both gram-positive and gram-negative rods; prompting an infectious disease consultation. The patient was seen and evaluated by infectious disease and recommendations were given. The patient's condition gradually improved.Dr Wagner wants him to have a PET scan for his lung and pancreas lesions as outpatient. The patient's condition is stable. He has not experienced any significant overnight events. Today, we feel that he is indeed appropriate for discharge to the [facility] for continuation of care. Diagnosis - Discharge Diagnosis (1) Diabetes Status: Chronic (2) Hypertension Status: Acute (3) Gangrene of the left lower extremely Status: Acute Specialty Discharge - Follow Up or Referrals Follow up with: Tarik Montejo MD [Physician] - ( 3 weeks & will need staple removal on this day also) Discharge Plan - Discharge Data Disposition: Disch/Xfer-Ip Rehab Fac - Discharge Medications New Amoxicillin/Clav Tab [Augmentin Tab] 875 mg PO BID #14 tablet Ascorbic Acid Tab [Vitamin C Tab] 500 mg PO BID tablet hydroCHLOROthiazide [Hydrochlorothiazide] 12.5 mg PO DAILY capsule Insulin Lispro [HumaLOG] See Protocol SUBCUT ACHS unit Multivitamin (Berocca) [Berocca] 1 tablet PO DAILY tablet Acetaminophen Tab [Tylenol Tab] 650 mg PO Q4H PRN tablet PRN Reason: Fever, Headache, Mild Pain Zinc Sulfate 220 mg PO DAILY capsule Continue Atorvastatin [Lipitor] 10 mg PO DAILY Hydrocodone/Acetaminophen [Hydrocodon-Acetaminophn 10-325] 1 each PO BID PRN #20 PRN Reason: Pain glipiZIDE [Glipizide] 5 mg PO DAILY Gabapentin 600 mg PO Q8HR Finasteride 5 mg PO DAILY Cilostazol 50 mg PO DAILY Warfarin [Coumadin] 10 mg PO DIRECTED Verapamil HCl [Verapamil ER Cap] 120 mg PO DAILY Omeprazole 20 mg PO DAILY Lisinopril 10 mg PO DAILY buPROPion HCl [Bupropion HCl Sr] 150 mg PO DAILY Alfuzosin [Uroxatral] 10 mg PO QPM Albuterol Inhaler [Proventil Inhaler] 2 puff INH DAILY Discontinued Warfarin [Coumadin] 12.5 mg PO DIRECTED Sildenafil Citrate [Viagra] 100 mg PO DAILY PRN PRN Reason: Erectile Dysfunction - Follow Up or Referral Follow Up: Tarik Montejo MD [Physician] - ( 3 weeks & will need staple removal on this day also) - Forms/Instructions Exam - Constitutional Vitals: Period Temp Pulse Resp BP Sys/Cho Pulse Ox Last 24 Hr 97.0 F-98.2 F 77-103 18-22 112-154/60-71 94-98 Discharge Results Procedures and tests throughout hospitalization: Pending Orders 03/15/17 06:48 Blood Culture Stat 03/21/17 06:52 Cytology Request Routine 03/27/17 11:35 Blood Culture Stat 03/27/17 11:45 Sputum Culture and Gram Stain Routine Urine Culture Stat 03/28/17 08:52 XR chest 1V portable Stat 03/28/17 11:00 Vancomycin,Trough Timed Labs on day of discharge: Labs from last 24 hours 03/28/17 03/28/17 03/28/17 10:57 07:29 06:04 WBC RBC Hgb Hct MCV MCH MCHC RDW Plt Count MPV Neut % (Auto) Lymph % (Auto) Sanders % (Auto) Eos % (Auto) Baso % (Auto) Neut # (Auto) Lymph # (Auto) Sanders # (Auto) Eos # (Auto) Baso # (Auto) Immature Gran % Nucleated RBC % Immature Gran # Nucleated RBCs # Immature Plt Fraction Sodium 137 Potassium 4.9 Chloride 101 Carbon Dioxide 29 Anion Gap 11.9 BUN 18 Creatinine 0.60 L GFR Calculation 136 BUN/Creatinine Ratio 30.00 H Glucose 230 H POC Glucose 224 H 272 H Calculated Osmolality 281.8 Calcium 9.1 Phosphorus 3.3 Magnesium 2.5 H Total Bilirubin 0.80 AST 45 H ALT 44 Alkaline Phosphatase 112 Total Protein 7.2 Albumin 2.2 L Globulin 5.0 H Albumin/Globulin Ratio 0.4 L Urine Color Urine Appearance Urine pH Ur Specific [place] Urine Protein Urine Glucose (UA) Urine Ketones Urine Blood Urine Nitrate Urine Bilirubin Urine Urobilinogen Urine Leukocytes Urine WBC Ur Squamous Epith Cells Urine Mucus Ur Culture Indicated? 03/28/17 03/27/17 03/27/17 06:04 20:06 17:56 WBC 13.6 H RBC 3.23 L Hgb 9.8 L Hct 30.4 L MCV 94.1 MCH 30 MCHC 32.2 RDW 15.0 Plt Count 502 H MPV 8.9 L Neut % (Auto) 79.5 H Lymph % (Auto) 12.8 L Sanders % (Auto) 5.3 Eos % (Auto) 1.4 Baso % (Auto) 0.4 Neut # (Auto) 10.8 H Lymph # (Auto) 1.7 Sanders # (Auto) 0.7 Eos # (Auto) 0.2 Baso # (Auto) 0.1 Immature Gran % 0.6 Nucleated RBC % 0.0 Immature Gran # 0.08 Nucleated RBCs # 0.00 Immature Plt Fraction 0.0 Sodium Potassium Chloride Carbon Dioxide Anion Gap BUN Creatinine GFR Calculation BUN/Creatinine Ratio Glucose POC Glucose 210 H 194 H Calculated Osmolality Calcium Phosphorus Magnesium Total Bilirubin AST ALT Alkaline Phosphatase Total Protein Albumin Globulin Albumin/Globulin Ratio Urine Color Urine Appearance Urine pH Ur Specific [place] Urine Protein Urine Glucose (UA) Urine Ketones Urine Blood Urine Nitrate Urine Bilirubin Urine Urobilinogen Urine Leukocytes Urine WBC Ur Squamous Epith Cells Urine Mucus Ur Culture Indicated? 03/27/17 10:57 WBC RBC Hgb Hct MCV MCH MCHC RDW Plt Count MPV Neut % (Auto) Lymph % (Auto) Sanders % (Auto) Eos % (Auto) Baso % (Auto) Neut # (Auto) Lymph # (Auto) Sanders # (Auto) Eos # (Auto) Baso # (Auto) Immature Gran % Nucleated RBC % Immature Gran # Nucleated RBCs # Immature Plt Fraction Sodium Potassium Chloride Carbon Dioxide Anion Gap BUN Creatinine GFR Calculation BUN/Creatinine Ratio Glucose POC Glucose Calculated Osmolality Calcium Phosphorus Magnesium Total Bilirubin AST ALT Alkaline Phosphatase Total Protein Albumin Globulin Albumin/Globulin Ratio Urine Color Yellow Urine Appearance Clear Urine pH 7.0 Ur Specific [place] 1.009 Urine Protein Negative Urine Glucose (UA) 150 Urine Ketones Negative Urine Blood Negative Urine Nitrate Negative Urine Bilirubin Negative Urine Urobilinogen 4.0 H Urine Leukocytes Negative Urine WBC <1 Ur Squamous Epith Cells Occasional Urine Mucus Occasional Ur Culture Indicated? Not indicated Preliminary micro results at discharge 03/27/17 11:45 Sputum Culture - Preliminary Sputum Normal Karmen at 24 hours 03/27/17 11:45 Urine Culture - Preliminary Urine,Clean Catch No Growth at 12 hours. 03/15/17 06:48 Blood Culture - Preliminary Blood Gram Negative Rods Gram positive rods DS: Provider Date of admission: 03/15/17 07:26 Primary care physician: Devante Frye, Attending physician on admission: Shonda Hyatt MD Consults: 03/15/17 07:32 Consult to Physician [CONS] Routine Comment: Consulting Provider: Tarik Montejo When should Consulting Provider be notified: Now Person Notified: Suzie Date Notified: 03/15/17 Time Notified: 10:44 03/15/17 12:49 Consult to Pharmacy [CONS] Routine Reason for Pharmacy Consult: Adjust Meds Renal Funct 03/15/17 13:40 Consult to Dietitian [CONS] Routine Reason for Dietitian: Dietary Consult Consult Comment: recent weight loss 03/18/17 12:44 Consult to Physician [CONS] Routine Comment: history lung mass Consulting Provider: Cory High Consult to Specialist Group: Pulmonology When should Consulting Provider be notified: In am Person Notified: md aware Date Notified: 03/19/17 Time Notified: 09:11 03/18/17 14:41 Consult to Physician [CONS] Routine Comment: Consulting Provider: Gisela Lei When should Consulting Provider be notified: In am Person Notified: Robin Date Notified: 03/19/17 Time Notified: 09:09 03/20/17 08:15 Consult to Anesthesiology [CONS] Routine Consulting Provider: Reason for Anesthesiology: Pre-op Clearance 03/21/17 08:52 Consult to Physician [CONS] Routine Comment: Dry gangrene of leg Consulting Provider: Gisela Lei Consult to Specialist Group: Infectious Disease When should Consulting Provider be notified: Now Person Notified: aware Date Notified: 03/21/17 Time Notified: 10:45 03/21/17 17:12 Consult to Case Mgmt/Social Srvs [CONS] Routine Reason for Case Mgmt/Social Srvs: Rehab Consult to Physical Therapy [CONS] Routine Reason for Physical Therapy: Other Consult Comment: recent above knee amputation 03/22/17 08:08 Consult to Case Mgmt/Social Srvs [CONS] Routine Reason for Case Mgmt/Social Srvs: Rehab Consult Comment: look at [facility] [place] rehab if insurance denies [facility] 03/24/17 07:44 Consult to Case Mgmt/Social Srvs [CONS] Routine Reason for Case Mgmt/Social Srvs: Rehab Other 03/24/17 13:06 Consult to [facility], Educator [CONS] Routine Reason for Dispatcher Chief Oil: Diabetes Education Discharging clinician: Delfina Monahan CNP <Shonda Hyatt - Last Filed: 03/28/17 11:38> Hospital Course - Time spent with patient Time with patient DS: Greater than 30 minutes (time spent 35mins) Diagnosis - Discharge Diagnosis (1) Gangrene of the left lower extremely Status: Acute (2) Septicemia Status: Acute (3) Hypertension Status: Acute (4) Peripheral vascular disease Status: Chronic (5) Diabetes Status: Chronic (6) Cellulitis of left lower leg Status: Acute (7) Lesion of lung Status: Acute Discharge Plan - Discharge Data Condition at Discharge: Stable Activity: resume usual activities as tolerated - Forms/Instructions Additional Discharge Instructions: Follow with PCP in 1week.Follow with Pulm and Suregery as scheduled. Outpt PET scan Exam - Constitutional General appearance: no acute distress - Respiratory Respiratory exam: Present: clear to auscultation bilaterally - Cardiovascular Cardiovascular exam: Present: regular rate and rhythm - GI/Abdominal GI/Abdominal exam: Present: normal bowel sounds - Extremities Exam Extremities exam: Present: other (left aka)
[2017-03-28 11:19] VITALS: BP 128/60
[2017-03-28] MEDS: VANCOMYCIN INJ 1,000 MG in SODIUM CHLORIDE 0.9% 250 ML IV SCH (12:03)
[2017-03-28 12:17] LABS: INR 1.4; PT Patient Result 15.4 SECS
--- NOTE | 2017-03-28 12:37 | Infectious Disease Progress ---
Assessment and Plan (1) Cellulitis of left lower leg Status: Acute Assessment and plan: He status post AKA. Current Visit: Yes (2) Gangrene of the left lower extremely Status: Acute Assessment and plan: Amputation done. Still with leukocytosis but this is almost resolved. Current Visit: Yes (3) Hypertension Status: Acute Current Visit: Yes (4) Diabetes Status: Chronic Current Visit: Yes Qualifiers: Diabetes mellitus type: type 2 Diabetes mellitus complication detail: with unspecified neuropathy (5) Peripheral vascular disease Status: Chronic Current Visit: Yes (6) Septicemia Status: Acute Assessment and plan: Patient has polymicrobial septicemia with gram-positive rods and gram-negative rods isolated from blood cultures done on admission. Source of the infection is likely that left leg wound with cellulitis. Repeat blood cultures negative. We have not yet gotten the official ID of those initial positive blood cultures however patient has been on antibiotics for the past 2 weeks and clinically there is no evidence of residual infection. Recommendations: I am okay with patient going home today without any antibiotics. Current Visit: Yes Infectious Disease - PN: Subj Interval history: Patient doing well, no significant pain to left AKA stump. He has not had fever. Breathing well no significant cough or shortness of breath. Infectious Disease Exam (PN) - Constitutional Vitals: Temp Pulse Resp BP Pulse Ox 98.2 F 82 18 128/60 97 03/28/17 11:18 03/28/17 11:18 03/28/17 11:18 03/28/17 11:18 03/28/17 11:18 General appearance: no acute distress Exam: General appearance: no acute distress - Eye Eye exam: Present: EOMI. no icterus Pupils: Present: NANETTE - ENT ENT exam: no oral exudates - Extremities Exam Extremities exam: Left AKA stump noted with leopoldo healing, no drainage, no redness - Skin Skin exam: no rash Results - Labs CBC & BMP: 03/28/17 06:04 03/28/17 06:04 Lab Results: I have reviewed the past 24 hour labs (Idea of organisms and blood cultures on admission still not yet identified) Quality Measures - VTE Contraindication to Pharmacological VTE Prophylaxis: Clinical assessment deems Pt at low risk, no prophalaxis needed Specialty Discharge - Follow Up or Referrals Follow up with: Tarik Montejo MD [Physician] - ( 3 weeks & will need staple removal on this day also)
--- NOTE | 2017-03-28 14:26 | XRay Report ---
Single view the chest. Indication: Positive PPD. Comparison: March 16, 2017. The heart is normal in size. The pulmonary vasculature is normal. The lung hanks are clear. Calcific plaque is present within the aortic knob. Osseous structures are unremarkable. Impression: No acute abnormality. PROCEDURE INTERPRETED AT [facility] DEPARTMENT OF RADIOLOGY Final Report Signed by: Dr. Denae Lawson
== END 2017-03-28 15:10 | DRG 854 ==
LOC: N.ED 05:15 → SUATTDRO 07:26 → N.EDINP 07:26 → N.5E 09:00
PROVIDERS: ADMIT Internal Medicine; ATTEND Internal Medicine

== ENCOUNTER 2017-04-26 06:23 | Inpatient (IN) ==
[~2017-04-26 06:23] MED LIST: CLINDAMYCIN INJ 900 MG in PREMIX 1 EACH IV ONE
--- NOTE | 2017-04-26 06:52 | EKG Report ---
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
[2017-04-26] MEDS ORDERED: CLINDAMYCIN INJ 50 ML IV ONE (07:57)
[2017-04-26] MEDS ORDERED: LACTATED RINGERS 1,000 ML IV SCH (08:00)
--- NOTE | 2017-04-26 09:13 | Operative Note ---
Date of procedure: 04/26/17 Pre-op diagnosis: Necrotic left above-knee amputation wound Post-op diagnosis: same Procedure: Preoperative diagnosis Necrotic wound left above-knee amputation site Postoperative diagnosis Same Procedures performed Excisional debridement of skin, subcutaneous tissue, fascia, and muscle measuring 200 cm Findings There was necrotic tissue down to the muscle layer on the medial aspect of the left above-knee amputation site. Excisional debridement was performed scalpel and scissors. There is minimal bleeding. Complications None apparent Specimen None Anesthesia General LMA Indications Progressive necrotic wound left above-knee amputation site. The risks, benefits , and alternatives of the operation were discussed with the patient detail, and the expected outcomes were reviewed. Patient like to proceed with the operation. Description of procedure The patient was taken to the operating room and transferred to the operating table in supine position. Pressure points were padded and general anesthesia was administered. Left leg amputation site was prepped with Betadine and draped sterilely. Timeout was called after antibiotics were administered. Excisional debridement performed including necrotic skin, subcutaneous tissue, fascia, and muscle measuring 200 cm. All necrotic tissue was removed. There was some induration surrounding tissues and a little bit of soupy tissue that was removed so instead of revising his amputation at this time I felt the best thing to do would be local wound care over the weekend and try to revise his amputation with minimizing his risk of infection of that tissue. It is my opinion he will need a higher amputation at some point in time. Wound was irrigated and packed with Dakin soaked wet-to-dry Kerlix dressing. Postoperative plan Wound care over the weekend Anesthesia: LUA Surgeon / Physician: Tarik Montejo Estimated blood loss: minimal Specimens: none sent Condition: stable Disposition: PACU Discharge Plan - Discharge Medications No Action Atorvastatin [Lipitor] 10 mg PO DAILY Amoxicillin/Clav Tab [Augmentin Tab] 875 mg PO BID #14 tablet Ascorbic Acid Tab [Vitamin C Tab] 500 mg PO BID tablet hydroCHLOROthiazide [Hydrochlorothiazide] 12.5 mg PO DAILY capsule Insulin Lispro [HumaLOG] See Protocol SUBCUT ACHS unit Multivitamin (Berocca) [Berocca] 1 tablet PO DAILY tablet Hydrocodone/Acetaminophen [Hydrocodon-Acetaminophn 10-325] 1 each PO BID PRN #20 PRN Reason: Pain Clindamycin HCl [Clindamycin Cap] 600 mg PO Q8HR Tramadol HCl [Tramadol Tab] 50 mg PO QID Insulin Detemir [Levemir] 10 unit SUBCUT BID glipiZIDE [Glipizide] 5 mg PO DAILY Gabapentin 600 mg PO Q8HR Finasteride 5 mg PO DAILY Cilostazol 50 mg PO DAILY Warfarin [Coumadin] 10 mg PO DIRECTED Verapamil HCl [Verapamil ER Cap] 120 mg PO DAILY Omeprazole 20 mg PO DAILY Lisinopril 10 mg PO DAILY buPROPion HCl [Bupropion HCl Sr] 150 mg PO DAILY Alfuzosin [Uroxatral] 10 mg PO QPM Albuterol Inhaler [Proventil Inhaler] 2 puff INH DAILY Acetaminophen Tab [Tylenol Tab] 650 mg PO Q4H PRN tablet PRN Reason: Fever, Headache, Mild Pain Zinc Sulfate 220 mg PO DAILY capsule - Follow Up or Referral - Forms/Instructions
--- NOTE | 2017-04-26 09:25 | Anesthesia Post-Op ---
Anesthesia Post OP - Post Ansesthetic Evaluation Patient seen in post op: Yes Resp: within normal limits CV: within normal limits Mental: within normal limits Temp: within normal limits [id number]-Tn-Dqdbyyahk: within normal limits Nausea and Vomiting: within normal limits Pain: within normal limits
[2017-04-26] MEDS ORDERED: ONDANSETRON 4 MG/2 ML VIAL IV PRN (10:00)
[2017-04-26] MEDS ORDERED: HYDROmorphone 2 MG/1 ML VIAL IV PRN (10:00)
[2017-04-26] MEDS ORDERED: PROMETHAZINE 25 MG/1 ML VIAL IM PRN (10:00)
[2017-04-26] MEDS ORDERED: SEVOFLURANE 1 UNIT/15 MINUTE INH ONE (10:30)
[2017-04-26] MEDS ORDERED: PROPOFOL 200 MG/20 ML VIAL IV ONE (10:30)
[2017-04-26] MEDS ORDERED: HYDROmorphone 2 MG/1 ML VIAL ONE (10:31)
[2017-04-26] MEDS ORDERED: ONDANSETRON 4 MG/2 ML VIAL ONE (10:31)
[2017-04-26] MEDS: LACTATED RINGERS 1,000 ML IV SCH ×3 (11:12→19:35)
[2017-04-26] MEDS: KETOROLAC 15 MG/1 ML VIAL IV SCH ×3 (11:12→21:34)
[2017-04-26] MEDS: INSULIN LISPRO 100 UNIT/ML SUBCUT SCH ×3 (12:30→21:32)
[2017-04-26] MEDS: traMADol 50 MG TABLET PO SCH ×3 (14:24→21:36)
[2017-04-26] MEDS: GABAPENTIN 600 MG TABLET PO SCH ×2 (14:24→21:36)
[2017-04-26] MEDS: ALFUZOSIN 10 MG TABLET PO SCH (18:18)
[2017-04-26] MEDS: INSULIN GLARGINE 100 UNIT/ML SUBCUT SCH (21:31)
[2017-04-26] MEDS: ASCORBIC ACID 500 MG TABLET PO SCH (21:36)
[2017-04-27] MEDS: LACTATED RINGERS 1,000 ML IV SCH (02:19)
[2017-04-27] MEDS: KETOROLAC 15 MG/1 ML VIAL IV SCH ×4 (04:26→23:19)
[2017-04-27] MEDS: GABAPENTIN 600 MG TABLET PO SCH ×3 (05:41→23:18)
[2017-04-27] MEDS: ENOXAPARIN 40 MG/0.4 ML SYRINGE SUBCUT SCH (05:41)
[2017-04-27 07:07] LABS: Basophils # 0.1 10*3/uL (0.0-0.2); Basophils % 0.2 % (0.0-0.8); Eosinophils # 0.1 10*3/uL (0.0-0.87); Eosinophils % 0.5 % (0.00-10.9); Immature Granulocytes Absolute 0.21 #; Lymphocytes # 2.1 10*3/uL (1.4-4.0); Lymphocytes % 10.1 % (21.2-54.2); Mean Corpuscular HGB Conc 33.2 GM/DL (32-36); Mean Corpuscular Hemoglobin 29 PG (27-34); Mean Corpuscular Volume 85.9 FL (87-102); Mean Platelet Volume 8.2 FL (9.6-12.0); Monocytes # 1.5 10*3/uL (0.11-0.8); Neutrophils # 17.1 10*3/uL (1.4-7.4); Neutrophils % 81.2 % (38.7-73.9); Platelet Count 540 T/CUMM (130-400); Red Blood Count 2.56 MC/CUMM (3.8-5.5); Red Cell Distribution Width 14.7 % (9.3-17.3); White Blood Count 21.1 T/CUMM (4-12)
[2017-04-27 07:12] LABS: Hemoglobin 7.3 GM/DL (14.0-18.0)
[2017-04-27 07:19] LABS: Calcium 8.6 MG/DL (8.5-10.1); Osmolality,Calculated 261.7 MOS/KG (273-304); Potassium 4.1 MMOL/L (3.5-5.1)
[2017-04-27 07:22] LABS: Band Neutrophils 1 % (0-10); Lymphocytes 11 % (20-55); Platelet Estimate Adequate; Segmented Neutrophils 81 % (50-85); Total Cells Counted 100
--- NOTE | 2017-04-27 08:09 | Event Note ---
This patient is admitted following excisional debridement of necrotic tissue on his left above-knee amputation site. He has an occluded external iliac artery and no in-line flow to the stump. The tissue yesterday did bleed some but did not look real encouraging. I removed a large amount of necrotic muscle and subcutaneous fat as well as fashion skin. The patient's white blood cell count is 21,000 and he had a fever last night 101.2. He is afebrile this morning with normal vital signs. His stump still has a little bit of dusky muscle but overall I do not see any undrained infection or mass of necrotic tissue that requires debridement. I will continue Laureen's wet-to-dry dressings twice daily over the weekend and IV antibiotics and schedule him for revision of his amputation on Sunday. My hope is that we can clean up this tissue sewn to make a risk of wound infection at the revision site lower.
[2017-04-27] MEDS: INSULIN LISPRO 100 UNIT/ML SUBCUT SCH ×4 (08:38→21:13)
[2017-04-27] MEDS: traMADol 50 MG TABLET PO SCH ×4 (08:53→21:13)
[2017-04-27] MEDS: buPROPion SR 150 MG TABLET PO SCH (08:55)
[2017-04-27] MEDS: glipiZIDE 5 MG TABLET PO SCH (08:56)
[2017-04-27] MEDS: ASCORBIC ACID 500 MG TABLET PO SCH ×2 (08:56→21:12)
[2017-04-27] MEDS: MULTIVITAMIN (BEROCCA) TABLET PO SCH (08:56)
[2017-04-27] MEDS: VERAPAMIL SR 120 MG TABLET PO SCH (08:57)
[2017-04-27] MEDS: hydroCHLOROthiazide 12.5 MG CAPSULE PO SCH (08:57)
[2017-04-27] MEDS: PANTOPRAZOLE 40 MG TABLET PO SCH (08:58)
[2017-04-27] MEDS: ATORVASTATIN 10 MG TABLET PO SCH (08:58)
[2017-04-27] MEDS: FINASTERIDE 5 MG TABLET PO SCH (08:59)
[2017-04-27] MEDS: LISINOPRIL 10 MG TABLET PO SCH (09:00)
[2017-04-27] MEDS: CILOSTAZOL 50 MG TABLET PO SCH (09:00)
[2017-04-27] MEDS: INSULIN GLARGINE 100 UNIT/ML SUBCUT SCH ×2 (09:06→21:12)
[2017-04-27] MEDS: VANCOMYCIN INJ 1,000 MG in SODIUM CHLORIDE 0.9% 250 ML IV SCH ×2 (09:08→22:26)
[2017-04-27] MEDS: SODIUM HYPOCHLORITE 0.25% IRRIG 473 ML BOTTLE TOP SCH (10:30)
[2017-04-27] MEDS: ALBUTEROL 2.5 MG/3 ML NEB RESP TX SCH (10:51)
[2017-04-27] MEDS: ZINC SULFATE 220 MG CAPSULE PO SCH (14:10)
[2017-04-27] MEDS: PIPERACILLIN/TAZOBACTAM 3,375 MG in SODIUM CHLORIDE 0.9% 100 ML IV SCH ×2 (14:12→18:48)
[2017-04-27] MEDS: ALFUZOSIN 10 MG TABLET PO SCH (21:12)
[2017-04-28] MEDS: PIPERACILLIN/TAZOBACTAM 3,375 MG in SODIUM CHLORIDE 0.9% 100 ML IV SCH ×3 (03:53→18:51)
[2017-04-28] MEDS: KETOROLAC 15 MG/1 ML VIAL IV SCH ×3 (03:54→18:00)
[2017-04-28] MEDS: GABAPENTIN 600 MG TABLET PO SCH ×2 (05:19→18:00)
[2017-04-28] MEDS: ENOXAPARIN 40 MG/0.4 ML SYRINGE SUBCUT SCH (05:19)
[2017-04-28 05:54] LABS: Basophils % 0.1 % (0.0-0.8); Eosinophils # 0.1 10*3/uL (0.0-0.87); Eosinophils % 0.4 % (0.00-10.9); Hematocrit 20.6 VOL% (42.0-52.0); Hemoglobin 6.8 GM/DL (14.0-18.0); Immature Granulocytes % 0.8 %; Immature Granulocytes Absolute 0.17 #; Lymphocytes # 2.1 10*3/uL (1.4-4.0); Lymphocytes % 9.9 % (21.2-54.2); Mean Corpuscular Hemoglobin 29 PG (27-34); Mean Corpuscular Volume 86.9 FL (87-102); Mean Platelet Volume 8.3 FL (9.6-12.0); Monocytes # 1.5 10*3/uL (0.11-0.8); Monocytes % 7.1 % (1.7-12.7); Neutrophils # 17.4 10*3/uL (1.4-7.4); Neutrophils % 81.7 % (38.7-73.9); Platelet Count 529 T/CUMM (130-400); Red Blood Count 2.37 MC/CUMM (3.8-5.5); Red Cell Distribution Width 15.2 % (9.3-17.3); White Blood Count 21.3 T/CUMM (4-12)
[2017-04-28 06:30] LABS: Giant Platelets Few; Hypochromasia 1+; Microcytosis Slight; Platelet Estimate Adequate
[2017-04-28] MEDS: INSULIN GLARGINE 100 UNIT/ML SUBCUT SCH ×2 (09:23→20:58)
[2017-04-28] MEDS: INSULIN LISPRO 100 UNIT/ML SUBCUT SCH ×4 (09:26→20:57)
[2017-04-28] MEDS: ASCORBIC ACID 500 MG TABLET PO SCH ×2 (09:27→20:57)
[2017-04-28] MEDS: ATORVASTATIN 10 MG TABLET PO SCH (09:28)
[2017-04-28] MEDS: FINASTERIDE 5 MG TABLET PO SCH (09:28)
[2017-04-28] MEDS: PANTOPRAZOLE 40 MG TABLET PO SCH (09:28)
[2017-04-28] MEDS: ZINC SULFATE 220 MG CAPSULE PO SCH (09:30)
[2017-04-28] MEDS: MULTIVITAMIN (BEROCCA) TABLET PO SCH (09:30)
[2017-04-28] MEDS: VERAPAMIL SR 120 MG TABLET PO SCH (09:30)
[2017-04-28] MEDS: buPROPion SR 150 MG TABLET PO SCH (09:30)
[2017-04-28] MEDS: CILOSTAZOL 50 MG TABLET PO SCH (09:30)
[2017-04-28] MEDS: VANCOMYCIN INJ 1,000 MG in SODIUM CHLORIDE 0.9% 250 ML IV SCH ×2 (09:36→21:00)
[2017-04-28] MEDS: traMADol 50 MG TABLET PO SCH ×3 (09:40→17:56)
[2017-04-28] MEDS: glipiZIDE 5 MG TABLET PO SCH (09:40)
[2017-04-28] MEDS: LISINOPRIL 10 MG TABLET PO SCH (09:40)
[2017-04-28] MEDS: hydroCHLOROthiazide 12.5 MG CAPSULE PO SCH (09:40)
[2017-04-28] MEDS: ALBUTEROL 2.5 MG/3 ML NEB RESP TX SCH (10:40)
[2017-04-28] MEDS: SODIUM HYPOCHLORITE 0.25% IRRIG 473 ML BOTTLE TOP SCH (13:30)
[2017-04-28] MEDS ORDERED: SODIUM CHLORIDE 0.9% 250 ML IV PRN (17:16)
--- NOTE | 2017-04-28 17:19 | Event Note ---
04/28/2017. Patient is status post revision of a left AKA amputation site. He has some moderate discomfort still but seems to be stable and awake and alert. His hematocrit though is down to 20 and will plan to go ahead and transfuse him today to get his counts up a little bit better. There was discussion from the nurses at the possibility of the patient was scheduled for further debridement of the wound on Sunday by Dr. street look although the patient was not aware of this. Patient was informed of the plans and will count a work in that direction.
[2017-04-28] MEDS: ALFUZOSIN 10 MG TABLET PO SCH (20:57)
[2017-04-29] MEDS: KETOROLAC 15 MG/1 ML VIAL IV SCH ×2 (00:54→05:49)
[2017-04-29] MEDS: traMADol 50 MG TABLET PO SCH ×5 (00:55→20:34)
[2017-04-29] MEDS: GABAPENTIN 600 MG TABLET PO SCH ×4 (00:55→21:26)
[2017-04-29] MEDS: PIPERACILLIN/TAZOBACTAM 3,375 MG in SODIUM CHLORIDE 0.9% 100 ML IV SCH ×3 (05:48→18:40)
[2017-04-29] MEDS: ENOXAPARIN 40 MG/0.4 ML SYRINGE SUBCUT SCH (05:49)
[2017-04-29 06:55] LABS: Hematocrit 25.6 VOL% (42.0-52.0); Hemoglobin 8.8 GM/DL (14.0-18.0)
[2017-04-29 07:28] LABS: Calcium 8.1 MG/DL (8.5-10.1); Osmolality,Calculated 268.4 MOS/KG (273-304); Potassium 3.7 MMOL/L (3.5-5.1)
[2017-04-29] MEDS: ALBUTEROL 2.5 MG/3 ML NEB RESP TX SCH (07:36)
[2017-04-29] MEDS: INSULIN GLARGINE 100 UNIT/ML SUBCUT SCH ×2 (10:24→20:34)
[2017-04-29] MEDS: INSULIN LISPRO 100 UNIT/ML SUBCUT SCH ×4 (10:26→20:34)
[2017-04-29] MEDS: buPROPion SR 150 MG TABLET PO SCH (10:27)
[2017-04-29] MEDS: ATORVASTATIN 10 MG TABLET PO SCH (10:27)
[2017-04-29] MEDS: LISINOPRIL 10 MG TABLET PO SCH (10:27)
--- NOTE | 2017-04-29 10:27 | Event Note ---
04/29/2017 1000 hrs. Patient is afebrile at this time. I did transfuse him 2 units last night because his hematocrit down to 20 and after 2 units is only up to 25 which is of concern. Patient is apparently scheduled for surgery tomorrow he still claims he does not know anything about this and after I explained to him the purpose was to debride this wound clean it up and possibly consider closure at that time. He seems understand at this point. We just maintain present care to let surgery can be done.
[2017-04-29] MEDS: glipiZIDE 5 MG TABLET PO SCH (10:29)
[2017-04-29] MEDS: VERAPAMIL SR 120 MG TABLET PO SCH (10:29)
[2017-04-29] MEDS: MULTIVITAMIN (BEROCCA) TABLET PO SCH (10:30)
[2017-04-29] MEDS: CILOSTAZOL 50 MG TABLET PO SCH (10:30)
[2017-04-29] MEDS: ASCORBIC ACID 500 MG TABLET PO SCH ×2 (10:31→20:34)
[2017-04-29] MEDS: PANTOPRAZOLE 40 MG TABLET PO SCH (10:31)
[2017-04-29] MEDS: ZINC SULFATE 220 MG CAPSULE PO SCH (10:31)
[2017-04-29] MEDS: FINASTERIDE 5 MG TABLET PO SCH (10:31)
[2017-04-29] MEDS: VANCOMYCIN INJ 1,000 MG in SODIUM CHLORIDE 0.9% 250 ML IV SCH ×2 (10:37→21:27)
[2017-04-29] MEDS: hydroCHLOROthiazide 12.5 MG CAPSULE PO SCH (10:39)
[2017-04-29] MEDS: SODIUM HYPOCHLORITE 0.25% IRRIG 473 ML BOTTLE TOP SCH (18:50)
[2017-04-29] MEDS: ALFUZOSIN 10 MG TABLET PO SCH (20:34)
[2017-04-30] MEDS: PIPERACILLIN/TAZOBACTAM 3,375 MG in SODIUM CHLORIDE 0.9% 100 ML IV SCH ×3 (03:44→18:18)
[2017-04-30 06:07] LABS: Basophils # 0.1 10*3/uL (0.0-0.2); Basophils % 0.2 % (0.0-0.8); Eosinophils # 0.2 10*3/uL (0.0-0.87); Hematocrit 27.2 VOL% (42.0-52.0); Hemoglobin 8.8 GM/DL (14.0-18.0); Immature Granulocytes % 0.5 %; Lymphocytes # 1.7 10*3/uL (1.4-4.0); Lymphocytes % 8.1 % (21.2-54.2); Mean Corpuscular HGB Conc 32.4 GM/DL (32-36); Mean Corpuscular Hemoglobin 29 PG (27-34); Mean Corpuscular Volume 88.9 FL (87-102); Monocytes # 1.5 10*3/uL (0.11-0.8); Neutrophils # 17.5 10*3/uL (1.4-7.4); Neutrophils % 83.2 % (38.7-73.9); Platelet Count 530 T/CUMM (130-400); Red Blood Count 3.06 MC/CUMM (3.8-5.5); Red Cell Distribution Width 15.1 % (9.3-17.3)
[2017-04-30] MEDS: GABAPENTIN 600 MG TABLET PO SCH ×3 (06:22→21:46)
[2017-04-30] MEDS: ENOXAPARIN 40 MG/0.4 ML SYRINGE SUBCUT SCH (06:22)
[2017-04-30 06:36] LABS: Band Neutrophils 1 % (0-10); Eosinophils 3 % (0-10); Hypochromasia 1+; Lymphocytes 4 % (20-55); Myelocytes 1 %; Platelet Estimate Increased; Segmented Neutrophils 84 % (50-85); Total Cells Counted 100
[2017-04-30 06:43] LABS: Calcium 8.8 MG/DL (8.5-10.1); Osmolality,Calculated 270.7 MOS/KG (273-304)
--- NOTE | 2017-04-30 07:12 | Event Note ---
Patient has been having intermittent fevers and persistent leukocytosis over the weekend. We will plan to revise his stump today if the tissue looks viable. If there is still infection and/or necrotic tissue we will continue with debridement and wound care.
[2017-04-30] MEDS: ALBUTEROL 2.5 MG/3 ML NEB RESP TX SCH (07:15)
[2017-04-30] MEDS: INSULIN LISPRO 100 UNIT/ML SUBCUT SCH ×4 (07:24→20:35)
[2017-04-30] MEDS ORDERED: LIDOCAINE 1%/EPI INJ 20 ML VIAL ONE (08:34)
[2017-04-30] MEDS: VANCOMYCIN INJ 1,000 MG in SODIUM CHLORIDE 0.9% 250 ML IV SCH ×2 (08:54→22:35)
[2017-04-30] MEDS ORDERED: ONDANSETRON 4 MG/2 ML VIAL ONE (08:55)
[2017-04-30] MEDS ORDERED: METOPROLOL TARTRATE 5 MG/5 ML VIAL IV ONE (08:55)
[2017-04-30] MEDS ORDERED: LIDOCAINE 2% 5 ML VIAL ONE (08:55)
[2017-04-30] MEDS ORDERED: ETOMIDATE 20 MG/10 ML VIAL IV ONE (08:55)
[2017-04-30] MEDS ORDERED: PROPOFOL 200 MG/20 ML VIAL IV ONE (08:55)
[2017-04-30] MEDS ORDERED: DEXAMETHASONE 4 MG/1 ML VIAL ONE (08:55)
[2017-04-30] MEDS: INSULIN GLARGINE 100 UNIT/ML SUBCUT SCH ×2 (09:20→20:33)
[2017-04-30] MEDS: traMADol 50 MG TABLET PO SCH ×4 (09:21→20:32)
--- NOTE | 2017-04-30 09:33 | Operative Note ---
Date of procedure: 04/30/17 Pre-op diagnosis: Gangrene left above-knee amputation stump Post-op diagnosis: same Procedure: Preoperative diagnosis Gangrene left above-knee amputation stump Postoperative diagnosis Same Procedures performed Excisional debridement of necrotic skin and subcutaneous tissue, muscle, and fascia measuring 100 cm Findings The debridement was performed back to tissue that was healthy and viable and had some bleeding. There is no evidence of necrotizing soft tissue infection. This appeared to be just progressive gangrene due to ischemic changes in the stomach. The wound was packed with wet-to-dry dressing. Complications None apparent Specimen None Anesthesia General LMA Blood loss Minimal Indications Progressive ischemic gangrene of left above-knee amputation stump. The risks, benefits, and alternatives of the operation were discussed with the patient, and the expected outcomes were reviewed. He elected to proceed with the operation. Description of procedure The patient was taken to the operating room and transferred to the operating table in supine position. Pressure points were padded and anesthesia was administered with a general LMA. The left above-knee amputation stump was prepped with Betadine and draped sterilely. Timeout was called. Excisional debridement was performed of necrotic skin, subcutaneous tissue, muscle, and fascia measuring 100 cm. Bovie electrocautery and scalpel were used to excise necrotic tissue. Excisional debridement was done back to the tissue that appeared viable. There was no evidence of necrotizing soft tissue infection there is no deep infection below the fascia where the femur was closed. The wound was irrigated and dressed with a wet-to-dry dressing. Patient was awakened from anesthesia and transferred to recovery. Postoperative plan Arteriogram to attempt revascularization of the left above-knee amputation stump in the next couple days Continue wound care and antibiotics Anesthesia: BENNIE Surgeon / Physician: Tarik Montejo Estimated blood loss: minimal Specimens: none sent Condition: stable Disposition: PACU Results - Labs CBC & BMP: 04/30/17 05:27 04/30/17 05:27 Discharge Plan - Discharge Medications No Action Atorvastatin [Lipitor] 10 mg PO DAILY Amoxicillin/Clav Tab [Augmentin Tab] 875 mg PO BID #14 tablet Ascorbic Acid Tab [Vitamin C Tab] 500 mg PO BID tablet hydroCHLOROthiazide [Hydrochlorothiazide] 12.5 mg PO DAILY capsule Insulin Lispro [HumaLOG] See Protocol SUBCUT ACHS unit Multivitamin (Berocca) [Berocca] 1 tablet PO DAILY tablet Hydrocodone/Acetaminophen [Hydrocodon-Acetaminophn 10-325] 1 each PO BID PRN #20 PRN Reason: Pain Clindamycin HCl [Clindamycin Cap] 600 mg PO Q8HR Tramadol HCl [Tramadol Tab] 50 mg PO QID Insulin Detemir [Levemir] 10 unit SUBCUT BID glipiZIDE [Glipizide] 5 mg PO DAILY Gabapentin 600 mg PO Q8HR Finasteride 5 mg PO DAILY Cilostazol 50 mg PO DAILY Warfarin [Coumadin] 10 mg PO DIRECTED Verapamil HCl [Verapamil ER Cap] 120 mg PO DAILY Omeprazole 20 mg PO DAILY Lisinopril 10 mg PO DAILY buPROPion HCl [Bupropion HCl Sr] 150 mg PO DAILY Alfuzosin [Uroxatral] 10 mg PO QPM Albuterol Inhaler [Proventil Inhaler] 2 puff INH DAILY Acetaminophen Tab [Tylenol Tab] 650 mg PO Q4H PRN tablet PRN Reason: Fever, Headache, Mild Pain Zinc Sulfate 220 mg PO DAILY capsule - Follow Up or Referral - Forms/Instructions
--- NOTE | 2017-04-30 09:47 | Anesthesia Post-Op ---
Anesthesia Post OP - Post Ansesthetic Evaluation Patient seen in post op: Yes Resp: within normal limits CV: within normal limits Mental: within normal limits Temp: within normal limits Ftcy-Ej-Einexaqqe: within normal limits Nausea and Vomiting: within normal limits Pain: within normal limits
[2017-04-30] MEDS ORDERED: SEVOFLURANE 1 UNIT/15 MINUTE INH ONE (09:49)
[2017-04-30] MEDS ORDERED: MIDAZOLAM 2 MG/2 ML VIAL ONE (09:50)
[2017-04-30] MEDS ORDERED: fentaNYL 100 MCG/2 ML VIAL ONE (09:50)
[2017-04-30] MEDS ORDERED: GLUCAGON 1 MG VIAL IM PRN (10:15)
[2017-04-30] MEDS ORDERED: DEXTROSE 50% 25 GM/50 ML SYRINGE IV PRN (10:15)
[2017-04-30] MEDS: buPROPion SR 150 MG TABLET PO SCH (10:24)
[2017-04-30] MEDS: MULTIVITAMIN (BEROCCA) TABLET PO SCH (10:24)
[2017-04-30] MEDS: LISINOPRIL 10 MG TABLET PO SCH (10:25)
[2017-04-30] MEDS: VERAPAMIL SR 120 MG TABLET PO SCH (10:25)
[2017-04-30] MEDS: ATORVASTATIN 10 MG TABLET PO SCH (10:27)
[2017-04-30] MEDS: CILOSTAZOL 50 MG TABLET PO SCH (10:27)
[2017-04-30] MEDS: glipiZIDE 5 MG TABLET PO SCH (10:27)
[2017-04-30] MEDS: ASCORBIC ACID 500 MG TABLET PO SCH ×2 (10:28→20:32)
[2017-04-30] MEDS: FINASTERIDE 5 MG TABLET PO SCH (10:28)
[2017-04-30] MEDS: hydroCHLOROthiazide 12.5 MG CAPSULE PO SCH (10:40)
[2017-04-30] MEDS: SODIUM HYPOCHLORITE 0.25% IRRIG 473 ML BOTTLE TOP SCH (10:40)
[2017-04-30] MEDS: ZINC SULFATE 220 MG CAPSULE PO SCH (10:50)
[2017-04-30] MEDS: PANTOPRAZOLE 40 MG TABLET PO SCH (10:51)
[2017-04-30] MEDS: ALFUZOSIN 10 MG TABLET PO SCH (18:18)
[2017-05-01] MEDS: PIPERACILLIN/TAZOBACTAM 3,375 MG in SODIUM CHLORIDE 0.9% 100 ML IV SCH ×3 (02:59→18:06)
[2017-05-01] MEDS: GABAPENTIN 600 MG TABLET PO SCH ×3 (06:12→21:46)
[2017-05-01] MEDS: ENOXAPARIN 40 MG/0.4 ML SYRINGE SUBCUT SCH (06:13)
[2017-05-01 06:36] LABS: Basophils % 0.2 % (0.0-0.8); Eosinophils # 0.1 10*3/uL (0.0-0.87); Eosinophils % 0.3 % (0.00-10.9); Hemoglobin 9.2 GM/DL (14.0-18.0); Immature Granulocytes % 0.7 %; Immature Granulocytes Absolute 0.14 #; Lymphocytes % 9.2 % (21.2-54.2); Mean Corpuscular HGB Conc 32.9 GM/DL (32-36); Mean Corpuscular Hemoglobin 29 PG (27-34); Mean Corpuscular Volume 88.6 FL (87-102); Mean Platelet Volume 8.4 FL (9.6-12.0); Monocytes # 1.2 10*3/uL (0.11-0.8); Monocytes % 5.7 % (1.7-12.7); Neutrophils # 17.8 10*3/uL (1.4-7.4); Neutrophils % 83.9 % (38.7-73.9); Platelet Count 576 T/CUMM (130-400); Red Blood Count 3.16 MC/CUMM (3.8-5.5); Red Cell Distribution Width 14.9 % (9.3-17.3); White Blood Count 21.2 T/CUMM (4-12)
[2017-05-01 06:53] LABS: Calcium 8.9 MG/DL (8.5-10.1); Magnesium 2.1 MG/DL (1.8-2.4); Osmolality,Calculated 278.5 MOS/KG (273-304); Potassium 4.1 MMOL/L (3.5-5.1)
[2017-05-01 07:00] LABS: Band Neutrophils 2 % (0-10); Hypochromasia 1+; Lymphocytes 13 % (20-55); Microcytosis Slight; Platelet Estimate Increased; Segmented Neutrophils 77 % (50-85); Total Cells Counted 100
[2017-05-01] MEDS: ALBUTEROL 2.5 MG/3 ML NEB RESP TX SCH (07:30)
[2017-05-01] MEDS: INSULIN LISPRO 100 UNIT/ML SUBCUT SCH ×4 (07:57→21:56)
[2017-05-01] MEDS: hydroCHLOROthiazide 12.5 MG CAPSULE PO SCH (08:25)
[2017-05-01] MEDS: FINASTERIDE 5 MG TABLET PO SCH (08:47)
[2017-05-01] MEDS: ZINC SULFATE 220 MG CAPSULE PO SCH (08:47)
[2017-05-01] MEDS: traMADol 50 MG TABLET PO SCH ×4 (08:48→21:45)
[2017-05-01] MEDS: buPROPion SR 150 MG TABLET PO SCH (08:48)
[2017-05-01] MEDS: ATORVASTATIN 10 MG TABLET PO SCH (08:48)
[2017-05-01] MEDS: CILOSTAZOL 50 MG TABLET PO SCH (08:48)
[2017-05-01] MEDS: MULTIVITAMIN (BEROCCA) TABLET PO SCH (08:49)
[2017-05-01] MEDS: LISINOPRIL 10 MG TABLET PO SCH (08:49)
[2017-05-01] MEDS: VERAPAMIL SR 120 MG TABLET PO SCH (08:49)
[2017-05-01] MEDS: ASCORBIC ACID 500 MG TABLET PO SCH ×2 (08:50→20:57)
[2017-05-01] MEDS: glipiZIDE 5 MG TABLET PO SCH (08:50)
[2017-05-01] MEDS: PANTOPRAZOLE 40 MG TABLET PO SCH (08:50)
[2017-05-01] MEDS: INSULIN GLARGINE 100 UNIT/ML SUBCUT SCH ×2 (08:52→21:55)
--- NOTE | 2017-05-01 11:50 | Event Note ---
I will be following Mr. olmstead while Dr. Montejo is out of town. I have discussed his care with Dr. Montejo reviewed the CT angiogram that was done earlier in March and our plan is to continue with local wound care of the left AKA stump at this point time we have asked Dr. Jimenez to consider an arteriogram and determine if there is any means that we have of improving perfusion into the left AKA stump. That is pending. In the meantime looking at the AKA stump most of this is adequately perfused to allow healing based on my findings today. There is still some soupiness on the very posterior aspect of the thigh we have some eschar but overall the perfusion does not appear to be too bad and that we will still have some options for healing. Cultures should have been taken last night and are pending but thus far nothing has grown in his blood cultures with this admission. He is not running any fever at this time and has not for approximately 48 hours. His white blood count however remains 21,000 he also has a very markedly elevated platelet count. I have consulted wound care and we are making plans for do not think the wound VAC is appropriate at this point time. We have also consulted hyperbaric oxygen to determine if he would be a candidate for that and if possible we could transfer him to [facility] for wound care and hyperbaric oxygen therapy. I did look at Mr. Roberson's right leg we have a femoral-popliteal bypass done with prosthetic graft in 2006 that is occluded but he has no difficulties with the right leg at this time although he does have extensive peripheral vascular occlusive disease. I would not anticipate any revascularization on the right side until such time as he develops symptoms or breakdown.
--- NOTE | 2017-05-01 12:21 | Pathology Report from [facility] ---
[facility] ACCESSION # : [id number] PATIENT NAME : Josh Roberson ORDERING DR : Tarik Montejo MD CLINICAL HX: Necrotic LT AKA wound POST-OP DX: Same SPECIMEN INFO: LT leg tissue GROSS DESCRIPTION: The specimen is received in formalin labeled with the patients name JOSH ROBERSON and consists of an aggregate of focally necrotic soft tissue measuring 19.5 x 7.0 cm. Protective Signal Operations Supervisor sections submitted in one cassette. DIAGNOSIS FOR JOSH ROBERSON: TISSUE OF LEFT LEG, DEBRIDEMENT: Necrotic skeletal muscle and fibroadipose tissue with abundant acute and chronic inflammation. COLLECTED DATE: 04/30/2017 [facility] REPORT DATE: 05/01/2017 ELECTRONICALLY SIGNED BY: Dariana Hughes M.D. 05/01/2017 - 11:10:43 [facility]
[2017-05-01] MEDS: SODIUM HYPOCHLORITE 0.25% IRRIG 473 ML BOTTLE TOP SCH ×2 (12:49→21:49)
[2017-05-01] MEDS: VANCOMYCIN INJ 1,000 MG in SODIUM CHLORIDE 0.9% 250 ML IV SCH (13:12)
[2017-05-01] MEDS ORDERED: ASPIRIN EC 325 MG TABLET PO ONE ×2 (16:12→16:13)
[2017-05-01] MEDS ORDERED: MORPHINE 2 MG/1 ML SYRINGE ONE (16:13)
[2017-05-01] MEDS ORDERED: MORPHINE 2 MG/1 ML SYRINGE IV ONE (16:13)
--- NOTE | 2017-05-01 16:47 | XRay Report ---
Portable chest Exam date: 05/01/2017 4:10 PM Indication: Shortness of breath, cough chest pain Comparison: March 28, 2017 Findings: Cardiomediastinal contours are stable. Lungs are clear bilaterally. No acute osseous abnormalities. Visualized upper abdomen demonstrates no acute pathology. Impression: No acute cardiopulmonary findings PROCEDURE INTERPRETED AT [facility] DEPARTMENT OF RADIOLOGY Final Report Signed by: Paola Molina MD
--- NOTE | 2017-05-01 17:06 | Order Completion Report ---
See report scanned to EMR
[2017-05-01 17:43] LABS: Troponin I Only < 0.015 NG/ML (0.00-0.045)
[2017-05-01] MEDS: ALFUZOSIN 10 MG TABLET PO SCH (18:09)
--- NOTE | 2017-05-01 18:41 | Event Note ---
Mr. Roberson developed some left-sided chest pain earlier this afternoon was noted to have normal troponins chest x-ray the EKG I cannot see change he states that this pain is resolved and he is comfortable this evening.
[2017-05-02] MEDS: VANCOMYCIN INJ 1,000 MG in SODIUM CHLORIDE 0.9% 250 ML IV SCH ×2 (02:12→17:43)
[2017-05-02] MEDS: PIPERACILLIN/TAZOBACTAM 3,375 MG in SODIUM CHLORIDE 0.9% 100 ML IV SCH ×3 (05:20→21:01)
[2017-05-02] MEDS: ENOXAPARIN 40 MG/0.4 ML SYRINGE SUBCUT SCH (05:25)
[2017-05-02] MEDS: GABAPENTIN 600 MG TABLET PO SCH ×3 (05:25→21:02)
[2017-05-02 05:40] LABS: Basophils # 0.1 10*3/uL (0.0-0.2); Basophils % 0.3 % (0.0-0.8); Eosinophils # 0.4 10*3/uL (0.0-0.87); Eosinophils % 1.7 % (0.00-10.9); Hematocrit 28.8 VOL% (42.0-52.0); Hemoglobin 9.3 GM/DL (14.0-18.0); Immature Granulocytes % 0.6 %; Immature Granulocytes Absolute 0.12 #; Lymphocytes # 2.7 10*3/uL (1.4-4.0); Lymphocytes % 12.8 % (21.2-54.2); Mean Corpuscular HGB Conc 32.3 GM/DL (32-36); Mean Corpuscular Hemoglobin 29 PG (27-34); Mean Corpuscular Volume 88.9 FL (87-102); Mean Platelet Volume 8.2 FL (9.6-12.0); Monocytes # 1.5 10*3/uL (0.11-0.8); Monocytes % 7.2 % (1.7-12.7); Neutrophils # 16.1 10*3/uL (1.4-7.4); Neutrophils % 77.4 % (38.7-73.9); Platelet Count 587 T/CUMM (130-400); Red Blood Count 3.24 MC/CUMM (3.8-5.5); Red Cell Distribution Width 15.2 % (9.3-17.3); White Blood Count 20.7 T/CUMM (4-12)
[2017-05-02 06:45] LABS: Hypochromasia 1+; Macrocytosis 1+; Target Cells Slight
[2017-05-02] MEDS: ALBUTEROL 2.5 MG/3 ML NEB RESP TX SCH (07:38)
[2017-05-02] MEDS: INSULIN LISPRO 100 UNIT/ML SUBCUT SCH ×4 (08:39→20:55)
[2017-05-02] MEDS: INSULIN GLARGINE 100 UNIT/ML SUBCUT SCH ×2 (09:23→20:56)
[2017-05-02] MEDS: ZINC SULFATE 220 MG CAPSULE PO SCH (09:25)
[2017-05-02] MEDS: VERAPAMIL SR 120 MG TABLET PO SCH (09:26)
[2017-05-02] MEDS: traMADol 50 MG TABLET PO SCH ×4 (09:26→20:54)
[2017-05-02] MEDS: ATORVASTATIN 10 MG TABLET PO SCH (09:27)
[2017-05-02] MEDS: FINASTERIDE 5 MG TABLET PO SCH (09:28)
[2017-05-02] MEDS: glipiZIDE 5 MG TABLET PO SCH (09:28)
[2017-05-02] MEDS: MULTIVITAMIN (BEROCCA) TABLET PO SCH (09:29)
[2017-05-02] MEDS: CILOSTAZOL 50 MG TABLET PO SCH (09:29)
--- NOTE | 2017-05-02 09:30 | Event Note ---
Mr. Roberson's chest pain has not returned and he is comfortable and doing well this morning his leg has areas that are looking much better but he also has some desiccation developing on the anterior medial aspect on the more distal portion of contacted Toña cane with wound care and we are going to try Silvadene as she suggested yesterday to see if this can prevent the desiccation but still promote healing. We are still looking into possible hyperbaric oxygen and as this is an ischemic nonhealing failing flap associated with infection as a result of the ischemia while not necessarily gas gangrene it is clearly a nonhealing nonhealing wound associated with ischemia. Also Dr. Jimenez has seen Mr. Roberson will obtain an arteriogram tomorrow to see if there is anything we can do to improve the perfusion of his left leg.
[2017-05-02] MEDS: LISINOPRIL 10 MG TABLET PO SCH (09:31)
[2017-05-02] MEDS: ASCORBIC ACID 500 MG TABLET PO SCH ×2 (09:31→20:55)
[2017-05-02] MEDS: buPROPion SR 150 MG TABLET PO SCH (09:31)
[2017-05-02] MEDS: PANTOPRAZOLE 40 MG TABLET PO SCH (09:31)
--- NOTE | 2017-05-02 09:31 | Event Note ---
Mr. Roberson has initially been turned down for hyperbaric oxygen therapy due to the "not meeting criteria. Like to emphasize that this is clearly failing flap with dying skin and subcutaneous tissue and muscle and secondary infection due to ischemia. I am uncertain as to what criteria is required for hyperbaric oxygen.
[2017-05-02] MEDS: hydroCHLOROthiazide 12.5 MG CAPSULE PO SCH (09:32)
[2017-05-02 10:00] LABS: INR 1.2; PT Patient Result 12.4 SECS; Partial Thromboplastin Time 37.8 SECS (0-40)
[2017-05-02] MEDS: SILVER SULFADIAZINE 1% CREAM 25 GM TUBE TOP SCH (11:26)
[2017-05-02] MEDS: SODIUM HYPOCHLORITE 0.25% IRRIG 473 ML BOTTLE TOP SCH (11:26)
--- NOTE | 2017-05-02 12:07 | IR History and Physical Update ---
IR Pre-Procedure - History and Physical Reason for procedure:: 72 yo M s/p left AKA, now with nonhealing stump. 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 Asked to eval with traditional angio of aortoiliac system and optimize flow to right groin for possible fem-fem bypass. - Dictation Physical: refer to H&P completed by admitting physician - Physical Exam Vital Signs: Last Vital Signs Temp 97.5 F L 05/02/17 06:38 Pulse 86 05/02/17 07:46 Resp 20 05/02/17 07:46 BP 154/74 05/02/17 06:38 Pulse Ox 100 05/02/17 07:46 Mental Status: alert and oriented - Sedation IR anesthesia plan for sedation: minimal ASA Class: III - Risks Risks: Procedures explained. Risks discussed include, but not limited to, the following:[pain, bleeding, vessel injury ] All questions answered. The following alternatives were discussed:[hip disarticulation amputation ] Risks and benefits discussed with: patient Consent obtained from: patient Assessment and Plan - Time spent with patient Time spent with patient: Less than 30 minutes (1) Gangrene of the left lower extremely Status: Acute Assessment and plan: Plan abdominal aortogram tomorrow morning, with attempt to recannulize left pelvic vessels, or optimize inflow to the right BEHAVIOR MANAGEMENT SPECIALIST as needed. Current Visit: No
[2017-05-02] MEDS: ALFUZOSIN 10 MG TABLET PO SCH (20:55)
[2017-05-03] MEDS ORDERED: DIAZEPAM 5 MG TABLET PO ONE ×2 (00:01→09:00)
[2017-05-03] MEDS: SODIUM HYPOCHLORITE 0.25% IRRIG 473 ML BOTTLE TOP SCH ×3 (02:24→21:25)
[2017-05-03] MEDS: VANCOMYCIN INJ 1,000 MG in SODIUM CHLORIDE 0.9% 250 ML IV SCH ×2 (03:42→17:23)
[2017-05-03] MEDS: SODIUM CHLORIDE 0.45% 1,000 ML IV SCH ×2 (03:59→10:30)
[2017-05-03] MEDS: PIPERACILLIN/TAZOBACTAM 3,375 MG in SODIUM CHLORIDE 0.9% 100 ML IV SCH ×3 (05:40→21:24)
[2017-05-03 05:48] LABS: Calcium 8.8 MG/DL (8.5-10.1); Osmolality,Calculated 269.1 MOS/KG (273-304); Potassium 4.4 MMOL/L (3.5-5.1)
[2017-05-03] MEDS: ENOXAPARIN 40 MG/0.4 ML SYRINGE SUBCUT SCH (06:37)
[2017-05-03] MEDS: GABAPENTIN 600 MG TABLET PO SCH ×3 (06:37→21:23)
[2017-05-03] MEDS ORDERED: DIAZEPAM 5 MG TABLET PO SCH (07:00)
[2017-05-03] MEDS ORDERED: MIDAZOLAM 2 MG/2 ML VIAL IV ONE (07:00)
[2017-05-03] MEDS ORDERED: fentaNYL 100 MCG/2 ML VIAL IV ONE (07:00)
[2017-05-03] MEDS: ALBUTEROL 2.5 MG/3 ML NEB RESP TX SCH (07:28)
[2017-05-03] MEDS: INSULIN LISPRO 100 UNIT/ML SUBCUT SCH ×4 (08:45→21:24)
[2017-05-03] MEDS: LISINOPRIL 10 MG TABLET PO SCH (08:48)
[2017-05-03] MEDS: VERAPAMIL SR 120 MG TABLET PO SCH (08:49)
[2017-05-03] MEDS: PANTOPRAZOLE 40 MG TABLET PO SCH (08:49)
[2017-05-03] MEDS: traMADol 50 MG TABLET PO SCH ×4 (08:58→21:23)
[2017-05-03] MEDS ORDERED: HEPARIN/NACL 0.9% 2 UNITS/ML 2,000 ML IV ONE (09:46)
[2017-05-03] MEDS ORDERED: MIDAZOLAM 2 MG/2 ML VIAL ONE (10:46)
[2017-05-03] MEDS ORDERED: fentaNYL 100 MCG/2 ML VIAL ONE (10:46)
[2017-05-03] MEDS: MULTIVITAMIN (BEROCCA) TABLET PO SCH (10:47)
[2017-05-03] MEDS: glipiZIDE 5 MG TABLET PO SCH (10:47)
[2017-05-03] MEDS: FINASTERIDE 5 MG TABLET PO SCH (10:48)
[2017-05-03] MEDS: CILOSTAZOL 50 MG TABLET PO SCH (10:48)
[2017-05-03] MEDS: hydroCHLOROthiazide 12.5 MG CAPSULE PO SCH (10:48)
[2017-05-03] MEDS: INSULIN GLARGINE 100 UNIT/ML SUBCUT SCH ×2 (10:48→21:24)
[2017-05-03] MEDS: ATORVASTATIN 10 MG TABLET PO SCH (10:48)
[2017-05-03] MEDS: buPROPion SR 150 MG TABLET PO SCH (10:50)
[2017-05-03] MEDS: ASCORBIC ACID 500 MG TABLET PO SCH ×2 (10:50→21:23)
[2017-05-03] MEDS: ZINC SULFATE 220 MG CAPSULE PO SCH (10:50)
[2017-05-03] MEDS: fentaNYL 100 MCG/2 ML VIAL IV ONE ×2 (11:00→18:21)
[2017-05-03] MEDS: MIDAZOLAM 2 MG/2 ML VIAL IV ONE ×2 (11:03→18:21)
--- NOTE | 2017-05-03 11:24 | Post Interventional Procedure ---
Pre-op diagnosis: PAD, nonhealing left AKA stump Post-op diagnosis: same Procedure: Abd aortogram, BLE runoff Contrast: [id number], 105 cc Flouroscopy: 3.1 min Radiologist: Des Jimenez Anesthesia: local, conscious sedation Medications: Versed 1mg, fentanyl 25mcg Total Sedation Time: 15 min Specimens: none sent Estimated blood loss: none Complications: none Condition: stable Description/Findings: See radiology report. Unable to recannulate occluded left iliac arterial system. Occluded right SFA. No significant right iliac arterial stenosis. Assessment and Plan - Time spent with patient Time spent with patient: Less than 30 minutes (1) Gangrene of the left lower extremely Status: Acute Assessment and plan: Plan abdominal aortogram tomorrow morning, with attempt to recannulize left pelvic vessels, or optimize inflow to the right BUSINESS DIVISION CHAIR as needed. Current Visit: No
--- NOTE | 2017-05-03 12:48 | Interventional Radiology Rpt ---
IR angio abdominal w serial, IR angio Ext BI Indication: Peripheral arterial disease. Nonhealing left [id number] amputation stump. ABDOMINAL AORTOGRAM WITH BILATERAL LOWER EXTREMITY RUNOFF ANGIOGRAPHY Description: A formal timeout was performed. Maximum sterile barrier technique was instituted. Right common femoral artery was accessed with micropuncture technique. Using Seldinger technique, a flush catheter was situated in the suprarenal abdominal aorta. Aortogram and bilateral lower extreme a runoff angiography was then performed. Effort was then made to cannulate the occluded left common iliac artery, unsuccessfully. Catheter and sheath were removed. Hemostasis was achieved with manual compression. Contrast: Visipaque 320, 105 cc. Fluoroscopy: 3.1 minutes, 272 images stored. Impression: 1. Moderately diseased aorta is present without aneurysm or focal stenosis. 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 Unable to recannulate the left iliac system from above. 2. Heterogeneous atheromatous disease of the right common iliac and external iliac artery is present without significant stenosis evident. Right common femoral artery is patent with moderate disease. The right SFA is completely occluded along almost its entire length with reconstitution at Nirav's canal via large profunda branches. Right popliteal artery and right peroneal artery are patent. Proximal occlusion of the right anterior tibialis artery and mid calf occlusion of the posterior tibialis artery noted. At the ankle, there is some faint collateral inflow to the right posterior tibialis artery, not direct inflow. 3. Very short segment patency of the left common femoral artery noted below the lowest stent. This very short segment of patent vessel fills via inferior epigastric arterial collaterals. Complete occlusion of the left SFA and no profunda branch is identified beyond mid thigh. PROCEDURE INTERPRETED AT [facility] DEPARTMENT OF RADIOLOGY Final Report Signed by: Des Jimenez M.D.
[2017-05-03] MEDS: SILVER SULFADIAZINE 1% CREAM 25 GM TUBE TOP SCH (13:00)
[2017-05-03] MEDS: ALFUZOSIN 10 MG TABLET PO SCH (21:23)
[2017-05-04] MEDS: VANCOMYCIN INJ 1,000 MG in SODIUM CHLORIDE 0.9% 250 ML IV SCH ×2 (03:32→14:47)
[2017-05-04] MEDS: PIPERACILLIN/TAZOBACTAM 3,375 MG in SODIUM CHLORIDE 0.9% 100 ML IV SCH ×3 (04:42→20:25)
[2017-05-04] MEDS: GABAPENTIN 600 MG TABLET PO SCH ×3 (06:18→21:20)
[2017-05-04] MEDS: ENOXAPARIN 40 MG/0.4 ML SYRINGE SUBCUT SCH (06:18)
[2017-05-04] MEDS: ALBUTEROL 2.5 MG/3 ML NEB RESP TX SCH (07:53)
[2017-05-04] MEDS: INSULIN LISPRO 100 UNIT/ML SUBCUT SCH ×4 (08:10→20:23)
[2017-05-04] MEDS: INSULIN GLARGINE 100 UNIT/ML SUBCUT SCH ×2 (09:00→20:24)
[2017-05-04] MEDS: ASCORBIC ACID 500 MG TABLET PO SCH ×2 (09:00→20:16)
[2017-05-04] MEDS: traMADol 50 MG TABLET PO SCH ×4 (09:00→20:16)
--- NOTE | 2017-05-04 10:49 | Event Note ---
Mr. Roberson's arteriogram indicates no reasonable hope of revascularizing his left leg we do seem to have adequate perfusion with current above-knee amputation and have some healing going on he is in hyperbaric oxygen this morning. My thoughts are that he would be best served by transferring to [facility] for long-term wound care and hyperbaric oxygen therapy. While he does have an occlusion of his right superficial femoral artery his right lower leg is not currently symptomatic and I do not recommend any intervention on that. If approved to go to [facility] to continue wound care and hyperbaric oxygen he could be discharged this weekend
[2017-05-04] MEDS: hydroCHLOROthiazide 12.5 MG CAPSULE PO SCH (12:14)
[2017-05-04] MEDS: CILOSTAZOL 50 MG TABLET PO SCH (12:26)
[2017-05-04] MEDS: buPROPion SR 150 MG TABLET PO SCH (12:26)
[2017-05-04] MEDS: VERAPAMIL SR 120 MG TABLET PO SCH (12:26)
[2017-05-04] MEDS: MULTIVITAMIN (BEROCCA) TABLET PO SCH (12:26)
[2017-05-04] MEDS: ATORVASTATIN 10 MG TABLET PO SCH (12:27)
[2017-05-04] MEDS: PANTOPRAZOLE 40 MG TABLET PO SCH (12:28)
[2017-05-04] MEDS: ZINC SULFATE 220 MG CAPSULE PO SCH (12:28)
[2017-05-04] MEDS: FINASTERIDE 5 MG TABLET PO SCH (12:28)
[2017-05-04] MEDS: glipiZIDE 5 MG TABLET PO SCH (12:28)
[2017-05-04] MEDS: LISINOPRIL 10 MG TABLET PO SCH (12:28)
[2017-05-04] MEDS: SODIUM CHLORIDE 0.45% 1,000 ML IV SCH (13:03)
[2017-05-04] MEDS ORDERED: INFLUENZA VIRUS VACCINE 0.5 ML SYRINGE IM ONE (14:15)
[2017-05-04] MEDS: ALFUZOSIN 10 MG TABLET PO SCH (18:49)
[2017-05-04] MEDS: SODIUM HYPOCHLORITE 0.25% IRRIG 473 ML BOTTLE TOP SCH ×2 (18:50→21:20)
[2017-05-04] MEDS: SILVER SULFADIAZINE 1% CREAM 25 GM TUBE TOP SCH (18:50)
[2017-05-05] MEDS: VANCOMYCIN INJ 1,000 MG in SODIUM CHLORIDE 0.9% 250 ML IV SCH ×2 (02:42→17:17)
[2017-05-05] MEDS: ENOXAPARIN 40 MG/0.4 ML SYRINGE SUBCUT SCH (05:17)
[2017-05-05] MEDS: PIPERACILLIN/TAZOBACTAM 3,375 MG in SODIUM CHLORIDE 0.9% 100 ML IV SCH ×3 (05:18→20:09)
[2017-05-05] MEDS: GABAPENTIN 600 MG TABLET PO SCH ×3 (05:19→21:47)
[2017-05-05] MEDS: ALBUTEROL 2.5 MG/3 ML NEB RESP TX SCH (07:31)
[2017-05-05] MEDS: INSULIN GLARGINE 100 UNIT/ML SUBCUT SCH ×2 (09:29→21:46)
[2017-05-05] MEDS: INSULIN LISPRO 100 UNIT/ML SUBCUT SCH ×4 (09:29→21:45)
[2017-05-05] MEDS: ATORVASTATIN 10 MG TABLET PO SCH (09:30)
[2017-05-05] MEDS: glipiZIDE 5 MG TABLET PO SCH (09:30)
[2017-05-05] MEDS: CILOSTAZOL 50 MG TABLET PO SCH (09:30)
[2017-05-05] MEDS: MULTIVITAMIN (BEROCCA) TABLET PO SCH (09:31)
[2017-05-05] MEDS: buPROPion SR 150 MG TABLET PO SCH (09:31)
[2017-05-05] MEDS: ASCORBIC ACID 500 MG TABLET PO SCH ×2 (09:31→20:08)
[2017-05-05] MEDS: VERAPAMIL SR 120 MG TABLET PO SCH (09:31)
[2017-05-05] MEDS: PANTOPRAZOLE 40 MG TABLET PO SCH (09:32)
[2017-05-05] MEDS: ZINC SULFATE 220 MG CAPSULE PO SCH (09:32)
[2017-05-05] MEDS: traMADol 50 MG TABLET PO SCH ×4 (09:32→20:08)
[2017-05-05] MEDS: FINASTERIDE 5 MG TABLET PO SCH (09:32)
[2017-05-05] MEDS: LISINOPRIL 10 MG TABLET PO SCH (09:32)
[2017-05-05] MEDS: SODIUM HYPOCHLORITE 0.25% IRRIG 473 ML BOTTLE TOP SCH ×2 (10:15→21:51)
[2017-05-05] MEDS: SILVER SULFADIAZINE 1% CREAM 25 GM TUBE TOP SCH (10:15)
--- NOTE | 2017-05-05 10:29 | Event Note ---
Vital signs stable. Patient is without complaints. His left amputation stump wound examined. Is overall clean. Plan is to transfer to [facility] on Sunday if a bed is available.
[2017-05-05] MEDS: hydroCHLOROthiazide 12.5 MG CAPSULE PO SCH (11:23)
[2017-05-05] MEDS: ALFUZOSIN 10 MG TABLET PO SCH (18:00)
[2017-05-06 04:02] LABS: Calcium 9.2 MG/DL (8.5-10.1); Osmolality,Calculated 277.4 MOS/KG (273-304); Potassium 4.3 MMOL/L (3.5-5.1)
[2017-05-06] MEDS: ENOXAPARIN 40 MG/0.4 ML SYRINGE SUBCUT SCH (05:59)
[2017-05-06] MEDS: VANCOMYCIN INJ 1,000 MG in SODIUM CHLORIDE 0.9% 250 ML IV SCH ×2 (06:00→18:04)
[2017-05-06] MEDS: GABAPENTIN 600 MG TABLET PO SCH ×3 (06:59→21:23)
[2017-05-06] MEDS: ALBUTEROL 2.5 MG/3 ML NEB RESP TX SCH (08:20)
[2017-05-06] MEDS: PIPERACILLIN/TAZOBACTAM 3,375 MG in SODIUM CHLORIDE 0.9% 100 ML IV SCH ×3 (09:24→23:48)
[2017-05-06] MEDS: INSULIN LISPRO 100 UNIT/ML SUBCUT SCH ×4 (10:21→21:24)
[2017-05-06] MEDS: hydroCHLOROthiazide 12.5 MG CAPSULE PO SCH (10:22)
[2017-05-06] MEDS: CILOSTAZOL 50 MG TABLET PO SCH (10:40)
[2017-05-06] MEDS: buPROPion SR 150 MG TABLET PO SCH (10:40)
[2017-05-06] MEDS: MULTIVITAMIN (BEROCCA) TABLET PO SCH (10:40)
[2017-05-06] MEDS: traMADol 50 MG TABLET PO SCH ×4 (10:41→21:23)
[2017-05-06] MEDS: PANTOPRAZOLE 40 MG TABLET PO SCH (10:41)
[2017-05-06] MEDS: ZINC SULFATE 220 MG CAPSULE PO SCH (10:41)
[2017-05-06] MEDS: VERAPAMIL SR 120 MG TABLET PO SCH (10:42)
[2017-05-06] MEDS: glipiZIDE 5 MG TABLET PO SCH (10:42)
[2017-05-06] MEDS: LISINOPRIL 10 MG TABLET PO SCH (10:42)
[2017-05-06] MEDS: ASCORBIC ACID 500 MG TABLET PO SCH ×2 (10:42→21:23)
[2017-05-06] MEDS: ATORVASTATIN 10 MG TABLET PO SCH (10:42)
[2017-05-06] MEDS: INSULIN GLARGINE 100 UNIT/ML SUBCUT SCH ×2 (10:43→21:24)
[2017-05-06] MEDS: FINASTERIDE 5 MG TABLET PO SCH (10:43)
--- NOTE | 2017-05-06 11:05 | Event Note ---
Afebrile vital signs stable. No changes to the wound. Continue local wound care. For transfer to [facility] tomorrow if approved
[2017-05-06] MEDS: SODIUM HYPOCHLORITE 0.25% IRRIG 473 ML BOTTLE TOP SCH ×2 (14:26→21:25)
[2017-05-06] MEDS: SILVER SULFADIAZINE 1% CREAM 25 GM TUBE TOP SCH (14:26)
[2017-05-06] MEDS: ALFUZOSIN 10 MG TABLET PO SCH (18:03)
[2017-05-07] MEDS: GABAPENTIN 600 MG TABLET PO SCH ×3 (05:34→21:35)
[2017-05-07] MEDS: ENOXAPARIN 40 MG/0.4 ML SYRINGE SUBCUT SCH (05:34)
[2017-05-07] MEDS: VANCOMYCIN INJ 1,000 MG in SODIUM CHLORIDE 0.9% 250 ML IV SCH ×2 (05:41→21:46)
[2017-05-07] MEDS: ALBUTEROL 2.5 MG/3 ML NEB RESP TX SCH (08:14)
[2017-05-07] MEDS: INSULIN LISPRO 100 UNIT/ML SUBCUT SCH ×4 (08:24→21:36)
[2017-05-07] MEDS: traMADol 50 MG TABLET PO SCH ×5 (08:30→21:46)
[2017-05-07] MEDS: VERAPAMIL SR 120 MG TABLET PO SCH (08:37)
[2017-05-07] MEDS: LISINOPRIL 10 MG TABLET PO SCH (08:37)
[2017-05-07] MEDS: PIPERACILLIN/TAZOBACTAM 3,375 MG in SODIUM CHLORIDE 0.9% 100 ML IV SCH ×2 (08:38→17:42)
[2017-05-07] MEDS: INSULIN GLARGINE 100 UNIT/ML SUBCUT SCH ×2 (09:00→21:36)
--- NOTE | 2017-05-07 11:45 | Discharge Summary ---
Discharge Plan - Discharge Medications No Action Atorvastatin [Lipitor] 10 mg PO DAILY Amoxicillin/Clav Tab [Augmentin Tab] 875 mg PO BID #14 tablet Ascorbic Acid Tab [Vitamin C Tab] 500 mg PO BID tablet hydroCHLOROthiazide [Hydrochlorothiazide] 12.5 mg PO DAILY capsule Insulin Lispro [HumaLOG] See Protocol SUBCUT ACHS unit Multivitamin (Berocca) [Berocca] 1 tablet PO DAILY tablet Hydrocodone/Acetaminophen [Hydrocodon-Acetaminophn 10-325] 1 each PO BID PRN #20 PRN Reason: Pain Clindamycin HCl [Clindamycin Cap] 600 mg PO Q8HR Tramadol HCl [Tramadol Tab] 50 mg PO QID Insulin Detemir [Levemir] 10 unit SUBCUT BID glipiZIDE [Glipizide] 5 mg PO DAILY Gabapentin 600 mg PO Q8HR Finasteride 5 mg PO DAILY Cilostazol 50 mg PO DAILY Warfarin [Coumadin] 10 mg PO DIRECTED Verapamil HCl [Verapamil ER Cap] 120 mg PO DAILY Omeprazole 20 mg PO DAILY Lisinopril 10 mg PO DAILY buPROPion HCl [Bupropion HCl Sr] 150 mg PO DAILY Alfuzosin [Uroxatral] 10 mg PO QPM Albuterol Inhaler [Proventil Inhaler] 2 puff INH DAILY Acetaminophen Tab [Tylenol Tab] 650 mg PO Q4H PRN tablet PRN Reason: Fever, Headache, Mild Pain Zinc Sulfate 220 mg PO DAILY capsule - Follow Up or Referral - Forms/Instructions Exam - Constitutional Vitals: Period Temp Pulse Resp BP Sys/Cho Pulse Ox Last 24 Hr 97.1 F-99.5 F 80-91 18-20 127-158/53-68 98-99 Discharge Results Procedures and tests throughout hospitalization: Pending Orders 05/07/17 16:30 Vancomycin,Trough Timed Labs on day of discharge: Labs from last 24 hours 05/07/17 05/06/17 05/06/17 07:04 20:03 15:40 POC Glucose 144 H 168 H 217 H DS: Provider Date of admission: 04/26/17 09:05 Primary care physician: . No PCP Attending physician on admission: Tarik Montejo MD Consults: 04/27/17 08:07 Consult to Pharmacy [CONS] Routine Reason for Pharmacy Consult: Dose/Manage Antibiotics 05/01/17 11:51 Consult to Wound Care - [place] [CONS] Routine Reason for Wound Care: Wound Care Management Discharging clinician: Sherie Pinon PA-C
--- NOTE | 2017-05-07 12:28 | Event Note ---
I reviewed Mr. Roberson's wound today and we were discussing transfer especially hospital to continue wound care and hyperbaric oxygen. However it appears that the distal aspects of the femur and the leg muscles itself some of the skin on the lateral aspects are showing progressive ischemia while the more proximal areas show good granulation tissue. In discussing this with Mr. Roberson I think that a revision of the above-knee stump and using the lateral and posterior aspects of the leg that are well vascularized as flaps is her best option to try to get this area to heal. Discussed this with Mr. Roberson I have explained certainly cannot promise it will heal but that this would provide the best chance of healing. There certainly risks of further infection although the cultures have been negative. I have told him we will check blood counts and transfusion may be indicated his blood count was 22 hematocrit and so we will recheck that today and get a type and screen. He agrees with the idea of revision of the stump in order to try to provide quicker healing. I will schedule it for tomorrow
[2017-05-07] MEDS: SODIUM HYPOCHLORITE 0.25% IRRIG 473 ML BOTTLE TOP SCH (12:30)
[2017-05-07] MEDS: SILVER SULFADIAZINE 1% CREAM 25 GM TUBE TOP SCH (12:30)
[2017-05-07 13:04] LABS: Basophils # 0.1 10*3/uL (0.0-0.2); Basophils % 0.3 % (0.0-0.8); Eosinophils # 0.2 10*3/uL (0.0-0.87); Eosinophils % 0.9 % (0.00-10.9); Hematocrit 28.4 VOL% (42.0-52.0); Hemoglobin 9.3 GM/DL (14.0-18.0); Immature Granulocytes % 0.7 %; Immature Granulocytes Absolute 0.14 #; Lymphocytes # 2.1 10*3/uL (1.4-4.0); Lymphocytes % 10.4 % (21.2-54.2); Mean Corpuscular HGB Conc 32.7 GM/DL (32-36); Mean Corpuscular Hemoglobin 30 PG (27-34); Mean Corpuscular Volume 90.2 FL (87-102); Mean Platelet Volume 8.6 FL (9.6-12.0); Monocytes # 1.2 10*3/uL (0.11-0.8); NRBC # 0.03 10*3/uL; Neutrophils # 16.6 10*3/uL (1.4-7.4); Neutrophils % 81.7 % (38.7-73.9); Platelet Count 578 T/CUMM (130-400); Red Blood Count 3.15 MC/CUMM (3.8-5.5); Red Cell Distribution Width 15.4 % (9.3-17.3); White Blood Count 20.3 T/CUMM (4-12)
[2017-05-07] MEDS: MULTIVITAMIN (BEROCCA) TABLET PO SCH (13:07)
[2017-05-07] MEDS: ASCORBIC ACID 500 MG TABLET PO SCH ×2 (13:08→21:36)
[2017-05-07] MEDS: ZINC SULFATE 220 MG CAPSULE PO SCH (13:08)
[2017-05-07] MEDS: FINASTERIDE 5 MG TABLET PO SCH (13:10)
[2017-05-07] MEDS: glipiZIDE 5 MG TABLET PO SCH (13:10)
[2017-05-07] MEDS: buPROPion SR 150 MG TABLET PO SCH (13:10)
[2017-05-07] MEDS: PANTOPRAZOLE 40 MG TABLET PO SCH (13:11)
[2017-05-07] MEDS: ATORVASTATIN 10 MG TABLET PO SCH (13:11)
[2017-05-07] MEDS: hydroCHLOROthiazide 12.5 MG CAPSULE PO SCH (13:12)
[2017-05-07] MEDS: CILOSTAZOL 50 MG TABLET PO SCH (13:13)
[2017-05-07 18:18] LABS: Hypochromasia Slight; Platelet Estimate Increased
[2017-05-07] MEDS: ALFUZOSIN 10 MG TABLET PO SCH (21:36)
[2017-05-08] MEDS: SODIUM HYPOCHLORITE 0.25% IRRIG 473 ML BOTTLE TOP SCH ×3 (01:34→21:54)
[2017-05-08] MEDS: PIPERACILLIN/TAZOBACTAM 3,375 MG in SODIUM CHLORIDE 0.9% 100 ML IV SCH ×3 (01:35→16:05)
[2017-05-08] MEDS: GABAPENTIN 600 MG TABLET PO SCH ×3 (06:37→21:53)
[2017-05-08] MEDS: VANCOMYCIN INJ 1,000 MG in SODIUM CHLORIDE 0.9% 250 ML IV SCH ×2 (06:38→19:40)
[2017-05-08] MEDS: ALBUTEROL 2.5 MG/3 ML NEB RESP TX SCH (07:20)
[2017-05-08] MEDS: INSULIN LISPRO 100 UNIT/ML SUBCUT SCH ×4 (08:10→21:54)
[2017-05-08] MEDS: PANTOPRAZOLE 40 MG TABLET PO SCH (08:15)
[2017-05-08] MEDS: VERAPAMIL SR 120 MG TABLET PO SCH (08:15)
[2017-05-08] MEDS: LISINOPRIL 10 MG TABLET PO SCH (08:16)
[2017-05-08] MEDS ORDERED: VANCOMYCIN 500 MG VIAL ONE (08:37)
[2017-05-08] MEDS: glipiZIDE 5 MG TABLET PO SCH (09:00)
[2017-05-08] MEDS ORDERED: PROPOFOL 200 MG/20 ML VIAL IV ONE ×2 (09:00→10:31)
[2017-05-08] MEDS: FINASTERIDE 5 MG TABLET PO SCH (09:00)
[2017-05-08] MEDS: INSULIN GLARGINE 100 UNIT/ML SUBCUT SCH ×2 (09:00→21:54)
[2017-05-08] MEDS: SILVER SULFADIAZINE 1% CREAM 25 GM TUBE TOP SCH (09:00)
[2017-05-08] MEDS: buPROPion SR 150 MG TABLET PO SCH (09:00)
[2017-05-08] MEDS: ASCORBIC ACID 500 MG TABLET PO SCH ×2 (09:00→21:53)
[2017-05-08] MEDS: MULTIVITAMIN (BEROCCA) TABLET PO SCH (09:00)
[2017-05-08] MEDS: ZINC SULFATE 220 MG CAPSULE PO SCH (09:00)
[2017-05-08] MEDS: traMADol 50 MG TABLET PO SCH ×4 (09:00→21:53)
[2017-05-08] MEDS: CILOSTAZOL 50 MG TABLET PO SCH (09:00)
[2017-05-08] MEDS ORDERED: SEVOFLURANE 1 UNIT/15 MINUTE INH ONE ×2 (09:00→10:32)
[2017-05-08] MEDS ORDERED: LIDOCAINE 2% 5 ML VIAL ONE (09:00)
[2017-05-08] MEDS: hydroCHLOROthiazide 12.5 MG CAPSULE PO SCH (09:00)
[2017-05-08] MEDS ORDERED: PHENYLEPHRINE 1 MG/10 ML SYRINGE IV ONE (09:00)
[2017-05-08] MEDS: ATORVASTATIN 10 MG TABLET PO SCH (09:00)
[2017-05-08] MEDS ORDERED: ONDANSETRON 4 MG/2 ML VIAL ONE ×2 (09:00→10:32)
[2017-05-08] MEDS ORDERED: DEXTROSE 50% 25 GM/50 ML VIAL IV PRN (10:24)
[2017-05-08] MEDS ORDERED: GLUCAGON 1 MG VIAL IM PRN (10:24)
[2017-05-08] MEDS ORDERED: KETOROLAC 30 MG/1 ML VIAL IV ONE (10:26)
[2017-05-08] MEDS ORDERED: HYDROmorphone 2 MG/1 ML VIAL IV PRN ×3 (10:27→10:41)
[2017-05-08] MEDS ORDERED: fentaNYL 100 MCG/2 ML VIAL ONE (10:32)
[2017-05-08] MEDS ORDERED: MIDAZOLAM 2 MG/2 ML VIAL ONE (10:32)
[2017-05-08] MEDS ORDERED: HYDROmorphone 2 MG/1 ML VIAL ONE (10:32)
[2017-05-08] MEDS ORDERED: LACTATED RINGERS 1,000 ML IV ONE (10:32)
--- NOTE | 2017-05-08 10:33 | Operative Note ---
Date of procedure: 05/08/17 Procedure: Dr. Claros operative report Josh Roberson Surgeon: Hyacinth Anesthesia: [place] general LMA Preoperative diagnosis: Poorly healing left AKA amputation Postoperative diagnosis: Same Revision of left above-knee amputation Indications for the procedure: Mr. Roberson is 72-year-old man with extensive vascular disease had had a left above-knee amputation but it developed ischemic breakdown and infection involving the thigh this is been debrided a week ago there was a open wound with a drying out distal stump I felt that further revision with a higher AK amputation debridement and closure would be appropriate I discussed this with the patient in detail he understood and accepted Description of the procedure after the induction of LMA anesthesia the patient' s left above-knee stump is prepped with Betadine soap and solution draped in usual fashion the patient had an open wound moving from the posterior medial aspect of the thigh just distal to the scrotal and then moving and a anterior manner distally around over the stump which was opened and drying out the lateral aspect looked good although there was some breakdown of skin on the posterior aspect and somewhat on the anterior primarily using cautery again excised cutting through the medial muscular components the adductor Kristin and coming across the femur then laterally across the tensor fascia paloma staying with good clean muscle with perfusion and good contraction this was continued posteriorly until I had freed the distal stump completely and had gotten back to healthy appearing skin subcu and muscle I then amputated through the femur approximately 15 cm proximal to the previous amputation site and set this off the table I did further irrigation of the area checking the muscle and found no gross infection there was bleeding from the muscle edges and the skin and subcu the superficial femoral artery was completely thrombosed as had been expected then felt that I could bring the posterior aspect of the skin and muscle anteriorly and do a primary closure I irrigated copiously with saline and then with Dakin's I debrided some of the subcu and skin further on the medial aspect I used #1 Vicryl to bring the anterior and posterior fascial layers together which they did so without tension I then used interrupted 2-0 Prolene to reapproximate the skin for the entire open incision getting a good closure that was not brought tightly together to allow drainage and but did not have tension I then felt that applying a wound VAC over the wound was the most appropriate dressing this was done with Mepitel the yanez foam and then the wound VAC dressing and this gave a good vacuum at 75-100 mmHg blood loss is estimated at 100 and sponge needle and instrument counts are correct patient was taken to recovery in stable condition Surgeon / Physician: Simeon Claros Results - Labs CBC & BMP: 05/07/17 12:40 05/06/17 02:36 Discharge Plan - Discharge Medications No Action Atorvastatin [Lipitor] 10 mg PO DAILY Amoxicillin/Clav Tab [Augmentin Tab] 875 mg PO BID #14 tablet Ascorbic Acid Tab [Vitamin C Tab] 500 mg PO BID tablet hydroCHLOROthiazide [Hydrochlorothiazide] 12.5 mg PO DAILY capsule Insulin Lispro [HumaLOG] See Protocol SUBCUT ACHS unit Multivitamin (Berocca) [Berocca] 1 tablet PO DAILY tablet Hydrocodone/Acetaminophen [Hydrocodon-Acetaminophn 10-325] 1 each PO BID PRN #20 PRN Reason: Pain Clindamycin HCl [Clindamycin Cap] 600 mg PO Q8HR Tramadol HCl [Tramadol Tab] 50 mg PO QID Insulin Detemir [Levemir] 10 unit SUBCUT BID glipiZIDE [Glipizide] 5 mg PO DAILY Gabapentin 600 mg PO Q8HR Finasteride 5 mg PO DAILY Cilostazol 50 mg PO DAILY Warfarin [Coumadin] 10 mg PO DIRECTED Verapamil HCl [Verapamil ER Cap] 120 mg PO DAILY Omeprazole 20 mg PO DAILY Lisinopril 10 mg PO DAILY buPROPion HCl [Bupropion HCl Sr] 150 mg PO DAILY Alfuzosin [Uroxatral] 10 mg PO QPM Albuterol Inhaler [Proventil Inhaler] 2 puff INH DAILY Acetaminophen Tab [Tylenol Tab] 650 mg PO Q4H PRN tablet PRN Reason: Fever, Headache, Mild Pain Zinc Sulfate 220 mg PO DAILY capsule - Follow Up or Referral - Forms/Instructions
[2017-05-08] MEDS ORDERED: ONDANSETRON 4 MG/2 ML VIAL IV PRN (10:41)
[2017-05-08] MEDS ORDERED: LACTATED RINGERS 1,000 ML IV SCH (11:00)
--- NOTE | 2017-05-08 11:47 | Anesthesia Post-Op ---
Anesthesia Post OP - Post Ansesthetic Evaluation Patient seen in post op: Yes Resp: within normal limits CV: within normal limits Mental: within normal limits Temp: within normal limits [id number]: within normal limits Nausea and Vomiting: within normal limits Pain: within normal limits
[2017-05-08] MEDS: KETOROLAC 10 MG TABLET PO SCH ×2 (12:15→20:04)
[2017-05-08] MEDS: ALFUZOSIN 10 MG TABLET PO SCH (21:53)
[2017-05-09] MEDS: PIPERACILLIN/TAZOBACTAM 3,375 MG in SODIUM CHLORIDE 0.9% 100 ML IV SCH ×3 (01:38→20:00)
[2017-05-09] MEDS: KETOROLAC 10 MG TABLET PO SCH ×5 (05:35→23:19)
[2017-05-09] MEDS: GABAPENTIN 600 MG TABLET PO SCH ×3 (05:36→21:13)
[2017-05-09] MEDS: VANCOMYCIN INJ 1,000 MG in SODIUM CHLORIDE 0.9% 250 ML IV SCH ×2 (05:36→17:58)
--- NOTE | 2017-05-09 07:08 | Event Note ---
General Surgery Progress Note Chief complaint This patient was admitted 04/26/2017 with gangrene of his left above-knee amputation site treated with multiple debridements and attempted aortogram with runoff to evaluate for revascularization which was not an option ultimately his left above-knee amputation was revised on 05/08/2017 Interval history The patient is doing well today. A low-grade temp overnight but is afebrile this morning. Pain is well controlled. Physical exam The patient is afebrile with normal vital signs His left above-knee mentation stump is warm and seems well-perfused with no evidence of infection. Wound VAC has a good seal. Labs None Imaging None new Assessment and plan Continue current management and wound VAC Discharge planning is in process and the patient may be a candidate for [facility] after discharge. I will discuss the duration of his initial wound VAC with Dr. Claros prior to taking it down.
[2017-05-09] MEDS: INSULIN LISPRO 100 UNIT/ML SUBCUT SCH ×4 (08:42→21:13)
[2017-05-09] MEDS: SODIUM HYPOCHLORITE 0.25% IRRIG 473 ML BOTTLE TOP SCH ×2 (08:50→20:37)
[2017-05-09] MEDS: ASCORBIC ACID 500 MG TABLET PO SCH ×2 (09:00→20:00)
[2017-05-09] MEDS: SILVER SULFADIAZINE 1% CREAM 25 GM TUBE TOP SCH (09:00)
[2017-05-09] MEDS: traMADol 50 MG TABLET PO SCH ×4 (09:00→20:00)
[2017-05-09] MEDS: INSULIN GLARGINE 100 UNIT/ML SUBCUT SCH ×2 (09:12→21:13)
[2017-05-09] MEDS ORDERED: DEXTROSE 50% 25 GM/50 ML VIAL IV PRN (10:30)
--- NOTE | 2017-05-09 11:13 | Event Note ---
Shefali Roberson is an HBO this morning at my visit. I will work with Dr. Montejo and we will review the wound next day or 2
[2017-05-09] MEDS: CILOSTAZOL 50 MG TABLET PO SCH (13:30)
[2017-05-09] MEDS: hydroCHLOROthiazide 12.5 MG CAPSULE PO SCH (13:30)
[2017-05-09] MEDS: FINASTERIDE 5 MG TABLET PO SCH (13:30)
[2017-05-09] MEDS: buPROPion SR 150 MG TABLET PO SCH (13:30)
[2017-05-09] MEDS: VERAPAMIL SR 120 MG TABLET PO SCH (13:31)
[2017-05-09] MEDS: PANTOPRAZOLE 40 MG TABLET PO SCH (13:31)
[2017-05-09] MEDS: ATORVASTATIN 10 MG TABLET PO SCH (13:32)
[2017-05-09] MEDS: ZINC SULFATE 220 MG CAPSULE PO SCH (13:32)
[2017-05-09] MEDS: MULTIVITAMIN (BEROCCA) TABLET PO SCH (13:32)
[2017-05-09] MEDS: glipiZIDE 5 MG TABLET PO SCH (13:33)
[2017-05-09] MEDS: LISINOPRIL 10 MG TABLET PO SCH (13:34)
[2017-05-09 14:39] LABS: Calcium 8.8 MG/DL (8.5-10.1); Osmolality,Calculated 274.1 MOS/KG (273-304)
[2017-05-09] MEDS: ALBUTEROL 2.5 MG/3 ML NEB RESP TX SCH (14:41)
[2017-05-09] MEDS: ALFUZOSIN 10 MG TABLET PO SCH (18:01)
[2017-05-10] MEDS: VANCOMYCIN INJ 1,000 MG in SODIUM CHLORIDE 0.9% 250 ML IV SCH ×2 (04:00→17:19)
[2017-05-10] MEDS: KETOROLAC 10 MG TABLET PO SCH ×4 (05:33→23:06)
[2017-05-10] MEDS: PIPERACILLIN/TAZOBACTAM 3,375 MG in SODIUM CHLORIDE 0.9% 100 ML IV SCH ×3 (05:33→20:02)
[2017-05-10] MEDS: GABAPENTIN 600 MG TABLET PO SCH ×3 (05:33→21:29)
[2017-05-10] MEDS: INSULIN LISPRO 100 UNIT/ML SUBCUT SCH ×4 (07:19→21:29)
[2017-05-10] MEDS: ALBUTEROL 2.5 MG/3 ML NEB RESP TX SCH (08:47)
[2017-05-10] MEDS: buPROPion SR 150 MG TABLET PO SCH (08:59)
[2017-05-10] MEDS: LISINOPRIL 10 MG TABLET PO SCH (08:59)
[2017-05-10] MEDS: VERAPAMIL SR 120 MG TABLET PO SCH (09:00)
[2017-05-10] MEDS: ATORVASTATIN 10 MG TABLET PO SCH (09:00)
[2017-05-10] MEDS: glipiZIDE 5 MG TABLET PO SCH (09:00)
[2017-05-10] MEDS: CILOSTAZOL 50 MG TABLET PO SCH (09:00)
[2017-05-10] MEDS: PANTOPRAZOLE 40 MG TABLET PO SCH (09:01)
[2017-05-10] MEDS: hydroCHLOROthiazide 12.5 MG CAPSULE PO SCH (09:01)
[2017-05-10] MEDS: traMADol 50 MG TABLET PO SCH ×4 (09:01→20:01)
[2017-05-10] MEDS: FINASTERIDE 5 MG TABLET PO SCH (09:01)
[2017-05-10] MEDS: ASCORBIC ACID 500 MG TABLET PO SCH ×2 (09:01→20:01)
[2017-05-10] MEDS: MULTIVITAMIN (BEROCCA) TABLET PO SCH (09:02)
[2017-05-10] MEDS: INSULIN GLARGINE 100 UNIT/ML SUBCUT SCH ×2 (09:02→21:29)
[2017-05-10] MEDS: ZINC SULFATE 220 MG CAPSULE PO SCH (09:02)
--- NOTE | 2017-05-10 09:27 | Event Note ---
General Surgery Progress Note Chief complaint This patient was admitted 04/26/2017 with gangrene of his left above-knee amputation site treated with multiple debridements and attempted aortogram with runoff to evaluate for revascularization which was not an option ultimately his left above-knee amputation was revised on 05/08/2017 Interval history No changes overnight. Physical exam The patient is afebrile with normal vital signs His left above-knee mentation stump is warm and seems well-perfused with no evidence of infection. Wound VAC has a good seal. Labs None Imaging None new Assessment and plan Plan to change wound vac tomorrow. Transfer to specialty tomorrow for continued wound care and HBO
--- NOTE | 2017-05-10 09:39 | Event Note ---
Mr. Roberson is generally doing well with current dressing and as Dr. Montejo is noted we will change the dressing tomorrow and the wound VAC and plan for referrals especially to continue with rehab and hyperbaric oxygen and wound care
[2017-05-10] MEDS: SODIUM HYPOCHLORITE 0.25% IRRIG 473 ML BOTTLE TOP SCH ×2 (10:14→20:29)
[2017-05-10] MEDS: SILVER SULFADIAZINE 1% CREAM 25 GM TUBE TOP SCH (10:15)
--- NOTE | 2017-05-10 12:17 | Pathology Report from [facility] ---
[facility] [place] # : [id number] PATIENT NAME : Josh Roberson ORDERING DR : Tarik Montejo MD CLINICAL HX: Progressive ischemia of LT AKA POST-OP DX: Same SPECIMEN INFO: Revision of LT AKA stump, femur, tissue, muscle, skin, bone GROSS DESCRIPTION: Received in formalin labeled JOSH BECKER is a focally necrotic stump revision measuring 17.0 x 9.5 cm. Received separately is a fragment of brown skin and subcutaneous tissue measuring 9.0 x 6.5 x 5.0 cm. Possible atherosclerotic changes are identified. Operations And Maintenance Specialist sections are submitted in cassette A & B. DIAGNOSIS FOR JOSH ROBERSON: REVISION OF LEFT AKA: Marked ulceration with necrosis and suppuration; atherosclerosis, thrombosis. COLLECTED DATE: 05/09/2017 [facility] [place] DATE: 05/10/2017 ELECTRONICALLY SIGNED BY: Tata Sylvester M.D. 05/10/2017 - 9:06:39 MTDGerald
[2017-05-10] MEDS: ALFUZOSIN 10 MG TABLET PO SCH (18:14)
[2017-05-11] MEDS: VANCOMYCIN INJ 1,000 MG in SODIUM CHLORIDE 0.9% 250 ML IV SCH (04:03)
[2017-05-11] MEDS: GABAPENTIN 600 MG TABLET PO SCH (05:40)
[2017-05-11] MEDS: PIPERACILLIN/TAZOBACTAM 3,375 MG in SODIUM CHLORIDE 0.9% 100 ML IV SCH ×2 (05:40→12:59)
[2017-05-11] MEDS: KETOROLAC 10 MG TABLET PO SCH ×2 (06:11→13:18)
--- NOTE | 2017-05-11 07:11 | Event Note ---
The patient is doing well overall. He is afebrile with normal vital signs. His wound VAC was taken down this morning and there was some bloody drainage between some of the sutures but no purulence. There is no erythema or concern for infection. No foul odor. There is no gangrene. I think it is safe for the patient is back to be reapplied and transferred him to specialty for ongoing HBO and wound care with a wound VAC
[2017-05-11] MEDS: ALBUTEROL 2.5 MG/3 ML NEB RESP TX SCH (08:26)
[2017-05-11] MEDS: INSULIN LISPRO 100 UNIT/ML SUBCUT SCH ×2 (08:40→13:16)
[2017-05-11] MEDS: INSULIN GLARGINE 100 UNIT/ML SUBCUT SCH (08:50)
--- NOTE | 2017-05-11 08:51 | Event Note ---
Mr. Roberson's leg generally looks good with no ischemia or purulence there is moderate bloody drainage as I would expect. He is being transferred especially hospital to continue hyperbaric oxygen wound care and rehabilitation I can follow him there
--- NOTE | 2017-05-11 10:40 | Discharge Summary ---
Hospital Course - Hospital Course Hospital Course: Patient is a 72-year-old male admitted on 04/26/2017 to undergo excisional debridement of left above-knee amputation for necrotic wound. Subsequently, he had leukocytosis and became febrile and required additional excisional debridement on 04/30/2017 for gangrene associated with the left AKA stump. He will underwent lower extremity angiography and abdominal angiography with Dr. 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 Patient received perioperative IV antibiotics and hyperbaric oxygen therapy. On 05/07/2017 the wound had evidence of desiccation and further wound edge necrosis and amputation revision was recommended and performed by Dr. Simeon Tirado on 2016 at which time an incisional wound VAC was placed. HBO was continued. The wound appeared viable without evidence of infection on the day of discharge. He was discharged to specialty LTAC for continued wound VAC management and hyperbaric oxygen therapy hour he can be followed by Dr. Simeon Tirado. There he will also receive physical and occupational therapy for rehabilitation. Help with the wound can heal so he can be fitted for a prosthesis. Diagnosis - Discharge Diagnosis (1) Gangrene of the left lower extremely Status: Acute (2) Peripheral vascular disease Status: Chronic Specialty Discharge - Follow Up or Referrals Follow up with: Simeon Claros MD [Physician] - (Notify office of room number) Discharge Plan - Discharge Data Disposition: Disch/Xfer to [facility] Condition at Discharge: Stable Discharge Diet: diabetic diet, heart healthy Activity: other (Consult PT/OT to eval and treat - left hip ROM, especially hip extension exercises) Wound / Dressing Care Instructions: -Applying wound VAC to incision of left AKA stump upon arrival. -Wound VAC changes every 3-[address] Tirado - Discharge Medications New HYDROcodone/ACETAMIN 7.5-325 [[place] 7.5-325] 1 tablet PO Q4H PRN tablet PRN Reason: Pain Moderate (4-7) Continue Atorvastatin [Lipitor] 10 mg PO DAILY Ascorbic Acid Tab [Vitamin C Tab] 500 mg PO BID tablet hydroCHLOROthiazide [Hydrochlorothiazide] 12.5 mg PO DAILY capsule Insulin Lispro [HumaLOG] See Protocol SUBCUT ACHS unit Multivitamin (Berocca) [Berocca] 1 tablet PO DAILY tablet Tramadol HCl [Tramadol Tab] 50 mg PO QID Insulin Detemir [Levemir] 10 unit SUBCUT BID glipiZIDE [Glipizide] 5 mg PO DAILY Gabapentin 600 mg PO Q8HR Finasteride 5 mg PO DAILY Cilostazol 50 mg PO DAILY Warfarin [Coumadin] 10 mg PO DIRECTED Verapamil HCl [Verapamil ER Cap] 120 mg PO DAILY Omeprazole 20 mg PO DAILY Lisinopril 10 mg PO DAILY buPROPion HCl [Bupropion HCl Sr] 150 mg PO DAILY Alfuzosin [Uroxatral] 10 mg PO QPM Albuterol Inhaler [Proventil Inhaler] 2 puff INH DAILY Zinc Sulfate 220 mg PO DAILY capsule Discontinued Amoxicillin/Clav Tab [Augmentin Tab] 875 mg PO BID #14 tablet Hydrocodone/Acetaminophen [Hydrocodon-Acetaminophn 10-325] 1 each PO BID PRN #20 PRN Reason: Pain Clindamycin HCl [Clindamycin Cap] 600 mg PO Q8HR Acetaminophen Tab [Tylenol Tab] 650 mg PO Q4H PRN tablet PRN Reason: Fever, Headache, Mild Pain - Follow Up or Referral Follow Up: Simeon Claros MD [Physician] - (Notify office of room number) - Forms/Instructions Instructions: Above the Knee Amputation (DC) Additional Discharge Instructions: Check PT/INR in 72 hrs then per protocol. Consult pharmacy for coumadin dose adjustment. -Continue daily HBO Exam - Constitutional Vitals: Period Temp Pulse Resp BP Sys/Cho Pulse Ox Last 24 Hr 97.3 F-98.6 F 72-83 18-20 126-157/55-77 96-99 General appearance: no acute distress - Respiratory Respiratory exam: Present: clear to auscultation bilaterally - Cardiovascular Cardiovascular exam: Present: regular rate and rhythm - GI/Abdominal GI/Abdominal exam: Present: normal bowel sounds, soft. Absent: distended, tenderness - Extremities Exam Extremities exam: Present: other (She Dr. Montejo note from this date wound inspection) - Neurological Exam Neurological exam: Present: alert, oriented X3 - Psychiatric Psychiatric exam: Present: normal affect, normal mood Discharge Results Labs on day of discharge: Labs from last 24 hours 05/11/17 05/10/17 05/10/17 07:00 20:36 16:07 POC Glucose 154 H 291 H 209 H 05/10/17 11:14 POC Glucose 245 H - Imaging and Cardiology Procedure: Chest x-ray: image reviewed by me, report reviewed by me (No acute abnormality) - Additional Comments See hospital course Pathology report: 05/01/2017 from procedure on 04/30/2017: Necrotic skeletal muscle and fibroadipose tissue with abundant acute and chronic inflammation Pathology report 05/10/2017 from procedure on 05/09/2017: Marked ulceration with necrosis and suppuration; atherosclerosis and thrombosis noted DS: Provider Date of admission: 04/26/17 09:05 Primary care physician: . No PCP Attending physician on admission: Tarik Montejo MD Consults: 04/27/17 08:07 Consult to Pharmacy [CONS] Routine Reason for Pharmacy Consult: Dose/Manage Antibiotics 05/01/17 11:51 Consult to Wound Care [facility] [CONS] Routine Reason for Wound Care: Wound Care Management Discharging clinician: Sherie Pinon PA-C
[2017-05-11 12:23] VITALS: BP 174/75
[2017-05-11] MEDS: traMADol 50 MG TABLET PO SCH ×2 (12:37→13:20)
[2017-05-11] MEDS: PANTOPRAZOLE 40 MG TABLET PO SCH (13:17)
[2017-05-11] MEDS: VERAPAMIL SR 120 MG TABLET PO SCH (13:18)
[2017-05-11] MEDS: CILOSTAZOL 50 MG TABLET PO SCH (13:18)
[2017-05-11] MEDS: ATORVASTATIN 10 MG TABLET PO SCH (13:19)
[2017-05-11] MEDS: buPROPion SR 150 MG TABLET PO SCH (13:20)
[2017-05-11] MEDS: LISINOPRIL 10 MG TABLET PO SCH (13:20)
[2017-05-11] MEDS: ZINC SULFATE 220 MG CAPSULE PO SCH (13:20)
[2017-05-11] MEDS: ASCORBIC ACID 500 MG TABLET PO SCH (13:21)
[2017-05-11] MEDS: MULTIVITAMIN (BEROCCA) TABLET PO SCH (13:22)
[2017-05-11] MEDS: glipiZIDE 5 MG TABLET PO SCH (13:22)
[2017-05-11] MEDS: FINASTERIDE 5 MG TABLET PO SCH (13:22)
[2017-05-11] MEDS: SODIUM HYPOCHLORITE 0.25% IRRIG 473 ML BOTTLE TOP SCH (13:23)
[2017-05-11] MEDS: hydroCHLOROthiazide 12.5 MG CAPSULE PO SCH (13:23)
[2017-05-11] MEDS: SILVER SULFADIAZINE 1% CREAM 25 GM TUBE TOP SCH (13:24)
== END 2017-05-11 15:00 | DRG 464 ==
LOC: N.OR 06:23 → N.SDSINP 06:37 → N.3E 09:59
PROVIDERS: ADMIT Surgery; ATTEND Surgery

== ENCOUNTER 2017-10-08 11:53 | Inpatient (IN) ==
[2017-10-08] MEDS ORDERED: FUROSEMIDE 40 MG/4 ML VIAL IV STA (12:21)
[2017-10-08] MEDS ORDERED: DILTIAZEM 50 MG/10 ML VIAL IV STA (12:21)
[2017-10-08] MEDS ORDERED: ALBUTEROL/IPRATROPIUM 3 ML NEB RESP TX STA (12:21)
[2017-10-08] MEDS ORDERED: FUROSEMIDE 40 MG/4 ML VIAL ONE (12:29)
[2017-10-08] MEDS ORDERED: DILTIAZEM 100 MG VIAL.ADD IV ONE (12:30)
[2017-10-08] MEDS ORDERED: SODIUM CHLORIDE 0.9% 100 ML IV ONE (12:30)
[2017-10-08] MEDS: DILTIAZEM INJ 100 MG in SODIUM CHLORIDE 0.9% 100 ML IV SCH (12:48)
[2017-10-08] MEDS ORDERED: METOPROLOL TARTRATE 5 MG/5 ML VIAL IV ONE (13:38)
[2017-10-08] MEDS ORDERED: cefTRIAXone 1,000 MG in SODIUM CHLORIDE 0.9% 100 ML IV STA (13:41)
[2017-10-08] MEDS ORDERED: METOPROLOL TARTRATE 5 MG/5 ML VIAL IV STA (13:44)
[2017-10-08 13:47] LABS: Basophils % 0.4 % (0.0-0.8); Eosinophils # 0.2 10*3/uL (0.0-0.87); Eosinophils % 1.7 % (0.00-10.9); Hematocrit 35.8 VOL% (42.0-52.0); Immature Granulocytes % 0.4 %; Immature Granulocytes Absolute 0.04 #; Lymphocytes # 2.4 10*3/uL (1.4-4.0); Mean Corpuscular HGB Conc 33.5 GM/DL (32-36); Mean Corpuscular Hemoglobin 32 PG (27-34); Mean Corpuscular Volume 96.5 FL (87-102); Monocytes % 9.2 % (1.7-12.7); Neutrophils # 7.1 10*3/uL (1.4-7.4); Neutrophils % 66.3 % (38.7-73.9); Platelet Count 240 T/CUMM (130-400); Red Blood Count 3.71 MC/CUMM (3.8-5.5); Red Cell Distribution Width 12.1 % (9.3-17.3); White Blood Count 10.8 T/CUMM (4-12)
[2017-10-08 14:02] LABS: INR 2.2
[2017-10-08] MEDS ORDERED: AMIODARONE INJ 150 MG in DEXTROSE 5% 100 ML IV ONE (14:06)
[2017-10-08 14:11] LABS: PT Patient Result 22.1 SECS
[2017-10-08] MEDS ORDERED: AMIODARONE 150 MG/3 ML VIAL ONE (14:17)
[2017-10-08 14:28] LABS: Apearance,Urine Slightly Hazy (Clear); Bilirubin,Urine Negative (Negative); Blood, Urine Negative (Negative); Glucose,Urine (UA) 50 mg/dL (Negative); Hyaline Casts,Urine 3 /LPF (0-3); Ketones,Urine Negative (Negative); Mucus,Urine Occasional /LPF (Occasional); Nitrite,Urine Negative (Negative); Protein,Urine Negative; RBC,Urine 1 /HPF (0-4); Squamous Epithelial Cell,Urine Occasional /HPF (0-10); Urine Color Yellow (Yellow); Urine Specific Gravity 1.014 (1.001-1.035); WBC,Urine <1 /HPF (0-6)
[2017-10-08 14:35] LABS: Lactic Acid 2.1 MMOL/L (0.4-2.0)
[2017-10-08 14:36] LABS: Alanine Aminotransferase 20 U/L (16-61); Alkaline Phosphatase 91 U/L (45-117); Aspartate Amino Transferase 11 U/L (0-37); Blood Urea Nitrogen 29 MG/DL (7-18); Calcium 8.7 MG/DL (8.5-10.1); Glucose 138 MG/DL (74-106); Osmolality,Calculated 280.8 MOS/KG (273-304); Potassium 4.2 MMOL/L (3.5-5.1); Sodium 137 MMOL/L (136-145); Thyroid Stimulating Hormone 0.745 uIU/ml (0.358-3.74); Total Protein 7.5 G/DL (6.4-8.3); Troponin I Only < 0.015 NG/ML (0.00-0.045)
[2017-10-08 14:56] LABS: Barbiturates Screen,Urine Negative (Negative); Benzodiazepines Screen,Urine Negative (Negative); Cannabinoid Screen,Urine Negative (Negative); Opiate Screen,Urine Positive (Negative); Phencyclidine Screen,Urine Negative (Negative)
[2017-10-08] MEDS ORDERED: SODIUM CHLORIDE 0.9% 2,000 ML IV STA (15:00)
[2017-10-08] MEDS ORDERED: PIPERACILLIN/TAZOBACTAM 3,375 MG in SODIUM CHLORIDE 0.9% 100 ML IV SCH (15:00)
[2017-10-08] MEDS ORDERED: cefTRIAXone 1,000 MG in SYRINGE 1 EACH IV STA (15:30)
[2017-10-08] MEDS ORDERED: PROPOFOL 200 MG/20 ML VIAL IV ONE (15:32)
[2017-10-08] MEDS ORDERED: PROPOFOL 200 MG/20 ML VIAL IV STA (15:36)
[2017-10-08 16:10] LABS: INR 2.1
[2017-10-08 16:11] LABS: PT Patient Result 21.6 SECS; Partial Thromboplastin Time 43.7 SECS (0-40)
[2017-10-08] MEDS ORDERED: cefTRIAXone 1,000 MG VIAL ONE (16:22)
[2017-10-08] MEDS ORDERED: ACETAMINOPHEN 325 MG TABLET PO PRN (16:27)
[2017-10-08] MEDS ORDERED: AMIODARONE INJ 450 MG in DEXTROSE 5% 241 ML IV SCH (16:30)
[2017-10-08] MEDS ORDERED: DIGOXIN 0.5 MG/2 ML AMP IV ONE (16:51)
[2017-10-08] MEDS ORDERED: SODIUM CHLORIDE 0.45% 1,000 ML IV SCH (17:00)
[2017-10-08] MEDS: INSULIN LISPRO 100 UNIT/ML SUBCUT SCH ×2 (19:55→20:00)
[2017-10-08] MEDS: INSULIN GLARGINE 100 UNIT/ML SUBCUT SCH (19:55)
[2017-10-08] MEDS: ISOSORBIDE DINITRATE 20 MG TABLET PO SCH (21:08)
[2017-10-08] MEDS: GABAPENTIN 300 MG CAPSULE PO SCH (21:08)
[2017-10-08] MEDS: WARFARIN 5 MG TABLET PO SCH (21:08)
[2017-10-08] MEDS: CILOSTAZOL 50 MG TABLET PO SCH (21:08)
[2017-10-08] MEDS: ASCORBIC ACID 500 MG TABLET PO SCH (21:08)
[2017-10-08] MEDS: AZITHROMYCIN INJ 500 MG in SODIUM CHLORIDE 0.9% 250 ML IV SCH (21:09)
[2017-10-09] MEDS: AMIODARONE INJ 450 MG in DEXTROSE 5% 241 ML IV SCH ×2 (01:14→13:53)
[2017-10-09 04:33] LABS: Basophils % 0.4 % (0.0-0.8); Eosinophils # 0.1 10*3/uL (0.0-0.87); Eosinophils % 1.3 % (0.00-10.9); Hemoglobin 10.5 GM/DL (14.0-18.0); Immature Granulocytes % 0.4 %; Immature Granulocytes Absolute 0.04 #; Lymphocytes % 18.2 % (21.2-54.2); Mean Corpuscular HGB Conc 32.8 GM/DL (32-36); Mean Corpuscular Hemoglobin 32 PG (27-34); Mean Corpuscular Volume 98.8 FL (87-102); Mean Platelet Volume 9.4 FL (9.6-12.0); Monocytes # 1.2 10*3/uL (0.11-0.8); Monocytes % 10.7 % (1.7-12.7); Neutrophils # 7.4 10*3/uL (1.4-7.4); Platelet Count 211 T/CUMM (130-400); Red Blood Count 3.24 MC/CUMM (3.8-5.5); Red Cell Distribution Width 12.1 % (9.3-17.3); White Blood Count 10.7 T/CUMM (4-12)
[2017-10-09 05:04] LABS: Calcium 8.2 MG/DL (8.5-10.1); Osmolality,Calculated 279.7 MOS/KG (273-304); Potassium 4.1 MMOL/L (3.5-5.1)
[2017-10-09] MEDS: GABAPENTIN 300 MG CAPSULE PO SCH ×3 (05:06→21:17)
[2017-10-09 05:08] LABS: Albumin 2.5 G/DL (3.4-5.0); Calcium 8.3 MG/DL (8.5-10.1); Osmolality,Calculated 279.7 MOS/KG (273-304); Potassium 4.1 MMOL/L (3.5-5.1); Total Protein 6.6 G/DL (6.4-8.3)
[2017-10-09] MEDS ORDERED: AMIODARONE INJ 450 MG in DEXTROSE 5% 241 ML IV SCH (06:00)
[2017-10-09] MEDS: DILTIAZEM INJ 100 MG in SODIUM CHLORIDE 0.9% 100 ML IV SCH ×2 (08:06→17:16)
[2017-10-09] MEDS: INSULIN GLARGINE 100 UNIT/ML SUBCUT SCH ×2 (08:50→16:26)
[2017-10-09] MEDS: INSULIN LISPRO 100 UNIT/ML SUBCUT SCH ×7 (09:05→22:31)
[2017-10-09] MEDS: MULTIVITAMIN (CENTRUM) TABLET PO SCH ×2 (09:53→16:25)
[2017-10-09] MEDS: FERROUS SULFATE 325 MG TABLET PO SCH ×2 (09:53→16:25)
[2017-10-09] MEDS: ALFUZOSIN 10 MG TABLET PO SCH ×2 (09:54→16:25)
[2017-10-09] MEDS: ASCORBIC ACID 500 MG TABLET PO SCH ×3 (09:54→21:18)
[2017-10-09] MEDS: buPROPion SR 150 MG TABLET PO SCH ×2 (09:55→16:25)
[2017-10-09] MEDS: FINASTERIDE 5 MG TABLET PO SCH ×2 (09:55→16:33)
[2017-10-09] MEDS: hydroCHLOROthiazide 12.5 MG CAPSULE PO SCH (10:13)
[2017-10-09] MEDS: LISINOPRIL 10 MG TABLET PO SCH (10:14)
[2017-10-09] MEDS: ATORVASTATIN 10 MG TABLET PO SCH (10:14)
[2017-10-09] MEDS: SKIN HEALING OINT (AQUAPHOR) 50 GM TUBE TOP SCH (10:15)
[2017-10-09] MEDS: VERAPAMIL 120 MG TABLET PO SCH (10:15)
[2017-10-09] MEDS: PANTOPRAZOLE 40 MG TABLET PO SCH (10:15)
[2017-10-09] MEDS: ISOSORBIDE DINITRATE 20 MG TABLET PO SCH ×2 (10:15→21:18)
[2017-10-09] MEDS: CILOSTAZOL 50 MG TABLET PO SCH ×2 (10:18→21:18)
[2017-10-09] MEDS: SODIUM CHLORIDE 0.9% 1,000 ML IV SCH (16:29)
[2017-10-09] MEDS: cefTRIAXone 1,000 MG in SYRINGE 1 EACH IV SCH (16:30)
[2017-10-09] MEDS: WARFARIN 5 MG TABLET PO SCH (17:34)
[2017-10-09] MEDS: AZITHROMYCIN INJ 500 MG in SODIUM CHLORIDE 0.9% 250 ML IV SCH (22:31)
[2017-10-10] MEDS: SODIUM CHLORIDE 0.9% 1,000 ML IV SCH ×3 (02:49→13:00)
[2017-10-10] MEDS ORDERED: ADENOSINE 6 MG/2 ML VIAL ONE (03:21)
[2017-10-10] MEDS ORDERED: DILTIAZEM 100 MG VIAL.ADD IV ONE (03:30)
[2017-10-10] MEDS ORDERED: DILTIAZEM 25 MG/5 ML VIAL IV ONE (03:30)
[2017-10-10 03:31] LABS: Basophils % 0.3 % (0.0-0.8); Eosinophils # 0.2 10*3/uL (0.0-0.87); Eosinophils % 1.4 % (0.00-10.9); Hematocrit 32.1 VOL% (42.0-52.0); Hemoglobin 10.3 GM/DL (14.0-18.0); Immature Granulocytes % 0.5 %; Immature Granulocytes Absolute 0.05 #; Lymphocytes % 18.8 % (21.2-54.2); Mean Corpuscular HGB Conc 32.1 GM/DL (32-36); Mean Corpuscular Hemoglobin 32 PG (27-34); Mean Corpuscular Volume 98.5 FL (87-102); Monocytes # 1.2 10*3/uL (0.11-0.8); Monocytes % 11.2 % (1.7-12.7); Neutrophils # 7.4 10*3/uL (1.4-7.4); Neutrophils % 67.8 % (38.7-73.9); Platelet Count 186 T/CUMM (130-400); Red Blood Count 3.26 MC/CUMM (3.8-5.5); White Blood Count 10.9 T/CUMM (4-12)
[2017-10-10] MEDS: DILTIAZEM INJ 100 MG in SODIUM CHLORIDE 0.9% 100 ML IV SCH (03:35)
[2017-10-10 03:47] LABS: INR 2.8
[2017-10-10 03:53] LABS: Osmolality,Calculated 276.8 MOS/KG (273-304); Potassium 3.9 MMOL/L (3.5-5.1)
[2017-10-10 03:57] LABS: PT Patient Result 28.3 SECS
[2017-10-10] MEDS ORDERED: LORazepam 2 MG/1 ML VIAL IV ONE (04:04)
[2017-10-10] MEDS: AMIODARONE INJ 450 MG in DEXTROSE 5% 241 ML IV SCH (05:06)
[2017-10-10] MEDS: GABAPENTIN 300 MG CAPSULE PO SCH ×3 (06:24→21:19)
[2017-10-10] MEDS: INSULIN GLARGINE 100 UNIT/ML SUBCUT SCH ×2 (08:17→17:29)
[2017-10-10] MEDS: INSULIN LISPRO 100 UNIT/ML SUBCUT SCH ×7 (08:17→21:21)
[2017-10-10] MEDS: LISINOPRIL 10 MG TABLET PO SCH (08:18)
[2017-10-10] MEDS: ASCORBIC ACID 500 MG TABLET PO SCH ×2 (08:18→21:20)
[2017-10-10] MEDS: hydroCHLOROthiazide 12.5 MG CAPSULE PO SCH (08:18)
[2017-10-10] MEDS: ATORVASTATIN 10 MG TABLET PO SCH (08:18)
[2017-10-10] MEDS: MULTIVITAMIN (CENTRUM) TABLET PO SCH (08:18)
[2017-10-10] MEDS: FERROUS SULFATE 325 MG TABLET PO SCH (08:18)
[2017-10-10] MEDS: ALFUZOSIN 10 MG TABLET PO SCH (08:18)
[2017-10-10] MEDS: ISOSORBIDE DINITRATE 20 MG TABLET PO SCH ×2 (08:18→21:19)
[2017-10-10] MEDS: buPROPion SR 150 MG TABLET PO SCH (08:18)
[2017-10-10] MEDS: CILOSTAZOL 50 MG TABLET PO SCH ×2 (08:18→21:23)
[2017-10-10] MEDS: SKIN HEALING OINT (AQUAPHOR) 50 GM TUBE TOP SCH (08:19)
[2017-10-10] MEDS: VERAPAMIL 120 MG TABLET PO SCH (08:19)
[2017-10-10] MEDS: PANTOPRAZOLE 40 MG TABLET PO SCH (08:19)
[2017-10-10] MEDS: FINASTERIDE 5 MG TABLET PO SCH (08:19)
[2017-10-10] MEDS ORDERED: INFLUENZA VIRUS VACCINE 0.5 ML SYRINGE IM ONE (09:00)
[2017-10-10] MEDS ORDERED: METOPROLOL SUCCINATE XL 50 MG TABLET PO SCH (10:00)
[2017-10-10] MEDS: ASPIRIN 325 MG TABLET PO SCH (13:15)
[2017-10-10] MEDS ORDERED: SODIUM CHLORIDE 0.9% 500 ML IV ONE (14:53)
[2017-10-10] MEDS: cefTRIAXone 1,000 MG in SYRINGE 1 EACH IV SCH (17:28)
[2017-10-10] MEDS: WARFARIN 5 MG TABLET PO SCH (17:29)
[2017-10-10] MEDS ORDERED: HEPARIN 5,000 UNIT/1 ML VIAL IV ONE (19:05)
[2017-10-10] MEDS: AMIODARONE 200 MG TABLET PO SCH (21:19)
[2017-10-10] MEDS: AZITHROMYCIN INJ 500 MG in SODIUM CHLORIDE 0.9% 250 ML IV SCH (21:19)
[2017-10-10] MEDS: METOPROLOL SUCCINATE XL 50 MG TABLET PO SCH (21:20)
[2017-10-10] MEDS: HEPARIN DRIP 25,000 UNITS/500 ML PREMIX IV SCH (23:21)
[2017-10-11 02:55] LABS: Basophils % 0.3 % (0.0-0.8); Eosinophils # 0.2 10*3/uL (0.0-0.87); Eosinophils % 1.8 % (0.00-10.9); Hematocrit 29.9 VOL% (42.0-52.0); Hemoglobin 9.9 GM/DL (14.0-18.0); Immature Granulocytes % 0.4 %; Immature Granulocytes Absolute 0.04 #; Lymphocytes # 1.8 10*3/uL (1.4-4.0); Mean Corpuscular HGB Conc 33.1 GM/DL (32-36); Mean Corpuscular Hemoglobin 32 PG (27-34); Mean Corpuscular Volume 95.8 FL (87-102); Mean Platelet Volume 9.2 FL (9.6-12.0); Monocytes # 1.1 10*3/uL (0.11-0.8); Monocytes % 11.5 % (1.7-12.7); Neutrophils # 6.8 10*3/uL (1.4-7.4); Platelet Count 186 T/CUMM (130-400); Red Blood Count 3.12 MC/CUMM (3.8-5.5); Red Cell Distribution Width 12.2 % (9.3-17.3)
[2017-10-11 04:04] LABS: Calcium 8.3 MG/DL (8.5-10.1)
[2017-10-11] MEDS: DILTIAZEM INJ 100 MG in SODIUM CHLORIDE 0.9% 100 ML IV SCH (05:30)
[2017-10-11] MEDS: GABAPENTIN 300 MG CAPSULE PO SCH ×3 (06:07→22:22)
[2017-10-11 06:26] LABS: INR 3.3
[2017-10-11 06:27] LABS: PT Patient Result 33.5 SECS
[2017-10-11] MEDS: ALBUTEROL/IPRATROPIUM 3 ML NEB RESP TX SCH ×3 (07:10→19:16)
[2017-10-11] MEDS: SKIN HEALING OINT (AQUAPHOR) 50 GM TUBE TOP SCH (08:27)
[2017-10-11] MEDS: INSULIN GLARGINE 100 UNIT/ML SUBCUT SCH ×2 (08:27→17:13)
[2017-10-11] MEDS: buPROPion SR 150 MG TABLET PO SCH (08:29)
[2017-10-11] MEDS: hydroCHLOROthiazide 12.5 MG CAPSULE PO SCH (08:29)
[2017-10-11] MEDS: LISINOPRIL 10 MG TABLET PO SCH (08:29)
[2017-10-11] MEDS: ISOSORBIDE DINITRATE 20 MG TABLET PO SCH ×2 (08:29→22:25)
[2017-10-11] MEDS: CILOSTAZOL 50 MG TABLET PO SCH ×2 (08:29→22:23)
[2017-10-11] MEDS: ASPIRIN 325 MG TABLET PO SCH (08:29)
[2017-10-11] MEDS: PANTOPRAZOLE 40 MG TABLET PO SCH (08:30)
[2017-10-11] MEDS: FERROUS SULFATE 325 MG TABLET PO SCH (08:30)
[2017-10-11] MEDS: AMIODARONE 200 MG TABLET PO SCH ×2 (08:30→22:23)
[2017-10-11] MEDS: FINASTERIDE 5 MG TABLET PO SCH (08:30)
[2017-10-11] MEDS: METOPROLOL SUCCINATE XL 50 MG TABLET PO SCH ×2 (08:30→22:23)
[2017-10-11] MEDS: ALFUZOSIN 10 MG TABLET PO SCH (08:30)
[2017-10-11] MEDS: VERAPAMIL 120 MG TABLET PO SCH (08:30)
[2017-10-11] MEDS: MULTIVITAMIN (CENTRUM) TABLET PO SCH (08:30)
[2017-10-11] MEDS: ASCORBIC ACID 500 MG TABLET PO SCH ×2 (08:30→22:23)
[2017-10-11] MEDS: ATORVASTATIN 10 MG TABLET PO SCH (08:30)
[2017-10-11] MEDS: INSULIN LISPRO 100 UNIT/ML SUBCUT SCH ×7 (08:38→22:24)
[2017-10-11 09:45] LABS: INR 3.2
[2017-10-11 09:46] LABS: PT Patient Result 32.5 SECS; Partial Thromboplastin Time 61.1 SECS (0-40)
[2017-10-11] MEDS: SODIUM CHLORIDE 0.9% 1,000 ML IV SCH ×2 (11:31→11:33)
[2017-10-11] MEDS: cefTRIAXone 1,000 MG in SYRINGE 1 EACH IV SCH (15:29)
[2017-10-11] MEDS: AZITHROMYCIN INJ 500 MG in SODIUM CHLORIDE 0.9% 250 ML IV SCH (22:25)
[2017-10-12] MEDS ORDERED: DIAZEPAM 5 MG TABLET PO ONE (00:01)
[2017-10-12 05:33] LABS: Basophils % 0.4 % (0.0-0.8); Eosinophils # 0.1 10*3/uL (0.0-0.87); Eosinophils % 1.7 % (0.00-10.9); Hematocrit 29.4 VOL% (42.0-52.0); Hemoglobin 9.4 GM/DL (14.0-18.0); Immature Granulocytes % 0.4 %; Immature Granulocytes Absolute 0.03 #; Lymphocytes # 1.5 10*3/uL (1.4-4.0); Lymphocytes % 18.7 % (21.2-54.2); Mean Corpuscular Hemoglobin 32 PG (27-34); Mean Corpuscular Volume 98.7 FL (87-102); Mean Platelet Volume 9.6 FL (9.6-12.0); Monocytes # 0.9 10*3/uL (0.11-0.8); Monocytes % 11.5 % (1.7-12.7); Neutrophils # 5.5 10*3/uL (1.4-7.4); Neutrophils % 67.3 % (38.7-73.9); Platelet Count 221 T/CUMM (130-400); Red Blood Count 2.98 MC/CUMM (3.8-5.5); Red Cell Distribution Width 12.2 % (9.3-17.3); White Blood Count 8.2 T/CUMM (4-12)
[2017-10-12 05:43] LABS: INR 3.7
[2017-10-12 05:48] LABS: PT Patient Result 37.6 SECS
[2017-10-12] MEDS: DILTIAZEM INJ 100 MG in SODIUM CHLORIDE 0.9% 100 ML IV SCH (05:58)
[2017-10-12] MEDS: GABAPENTIN 300 MG CAPSULE PO SCH ×3 (05:58→22:18)
[2017-10-12 06:31] LABS: Calcium 8.2 MG/DL (8.5-10.1); Osmolality,Calculated 280.8 MOS/KG (273-304); Potassium 4.3 MMOL/L (3.5-5.1)
[2017-10-12] MEDS ORDERED: DIAZEPAM 5 MG TABLET ONE (07:57)
[2017-10-12] MEDS: ALBUTEROL/IPRATROPIUM 3 ML NEB RESP TX SCH ×4 (08:59→20:29)
[2017-10-12] MEDS: CILOSTAZOL 50 MG TABLET PO SCH ×2 (10:12→22:19)
[2017-10-12] MEDS: ALFUZOSIN 10 MG TABLET PO SCH (10:12)
[2017-10-12] MEDS: ASPIRIN 325 MG TABLET PO SCH (10:12)
[2017-10-12] MEDS: ASCORBIC ACID 500 MG TABLET PO SCH ×2 (10:13→22:19)
[2017-10-12] MEDS: ISOSORBIDE DINITRATE 20 MG TABLET PO SCH ×2 (10:13→22:21)
[2017-10-12] MEDS: PANTOPRAZOLE 40 MG TABLET PO SCH (10:13)
[2017-10-12] MEDS: FERROUS SULFATE 325 MG TABLET PO SCH (10:13)
[2017-10-12] MEDS: MULTIVITAMIN (CENTRUM) TABLET PO SCH (10:13)
[2017-10-12] MEDS: LISINOPRIL 10 MG TABLET PO SCH (10:14)
[2017-10-12] MEDS: hydroCHLOROthiazide 12.5 MG CAPSULE PO SCH (10:14)
[2017-10-12] MEDS: METOPROLOL SUCCINATE XL 50 MG TABLET PO SCH ×2 (10:15→22:20)
[2017-10-12] MEDS: buPROPion SR 150 MG TABLET PO SCH (10:15)
[2017-10-12] MEDS: ATORVASTATIN 10 MG TABLET PO SCH (10:15)
[2017-10-12] MEDS: FINASTERIDE 5 MG TABLET PO SCH (10:15)
[2017-10-12] MEDS: AMIODARONE 200 MG TABLET PO SCH ×2 (10:16→22:19)
[2017-10-12] MEDS: SKIN HEALING OINT (AQUAPHOR) 50 GM TUBE TOP SCH (10:16)
[2017-10-12] MEDS: HEPARIN DRIP 25,000 UNITS/500 ML PREMIX IV SCH ×3 (10:35→22:24)
[2017-10-12] MEDS: INSULIN LISPRO 100 UNIT/ML SUBCUT SCH ×7 (11:00→22:21)
[2017-10-12] MEDS: INSULIN GLARGINE 100 UNIT/ML SUBCUT SCH ×2 (11:00→16:25)
[2017-10-12] MEDS: cefTRIAXone 1,000 MG in SYRINGE 1 EACH IV SCH (16:25)
[2017-10-12] MEDS: AZITHROMYCIN INJ 500 MG in SODIUM CHLORIDE 0.9% 250 ML IV SCH (22:23)
[2017-10-13] MEDS: ALBUTEROL/IPRATROPIUM 3 ML NEB RESP TX SCH ×4 (02:04→19:25)
[2017-10-13 02:55] LABS: Basophils % 0.3 % (0.0-0.8); Eosinophils # 0.1 10*3/uL (0.0-0.87); Eosinophils % 1.1 % (0.00-10.9); Hematocrit 27.8 VOL% (42.0-52.0); Immature Granulocytes % 0.7 %; Immature Granulocytes Absolute 0.07 #; Lymphocytes # 1.4 10*3/uL (1.4-4.0); Lymphocytes % 13.7 % (21.2-54.2); Mean Corpuscular HGB Conc 32.4 GM/DL (32-36); Mean Corpuscular Hemoglobin 32 PG (27-34); Mean Corpuscular Volume 98.6 FL (87-102); Mean Platelet Volume 9.8 FL (9.6-12.0); Neutrophils # 7.6 10*3/uL (1.4-7.4); Neutrophils % 74.2 % (38.7-73.9); Platelet Count 253 T/CUMM (130-400); Red Blood Count 2.82 MC/CUMM (3.8-5.5); Red Cell Distribution Width 12.2 % (9.3-17.3); White Blood Count 10.3 T/CUMM (4-12)
[2017-10-13 03:35] LABS: Calcium 8.1 MG/DL (8.5-10.1); Osmolality,Calculated 280.1 MOS/KG (273-304); Potassium 4.2 MMOL/L (3.5-5.1)
[2017-10-13] MEDS: GABAPENTIN 300 MG CAPSULE PO SCH ×3 (07:31→21:00)
[2017-10-13] MEDS: DILTIAZEM INJ 100 MG in SODIUM CHLORIDE 0.9% 100 ML IV SCH (07:31)
[2017-10-13] MEDS ORDERED: DILTIAZEM 30 MG TABLET PO SCH (09:00)
[2017-10-13] MEDS ORDERED: AMPICILLIN INJ 1,000 MG in SODIUM CHLORIDE 0.9% 100 ML IV SCH (09:00)
[2017-10-13] MEDS: ISOSORBIDE DINITRATE 20 MG TABLET PO SCH ×2 (09:09→20:58)
[2017-10-13] MEDS: ASPIRIN 325 MG TABLET PO SCH (09:09)
[2017-10-13] MEDS: MULTIVITAMIN (CENTRUM) TABLET PO SCH (09:09)
[2017-10-13] MEDS: LISINOPRIL 10 MG TABLET PO SCH (09:09)
[2017-10-13] MEDS: buPROPion SR 150 MG TABLET PO SCH (09:09)
[2017-10-13] MEDS: CILOSTAZOL 50 MG TABLET PO SCH ×2 (09:09→21:44)
[2017-10-13] MEDS: FERROUS SULFATE 325 MG TABLET PO SCH (09:09)
[2017-10-13] MEDS: hydroCHLOROthiazide 12.5 MG CAPSULE PO SCH (09:10)
[2017-10-13] MEDS: ASCORBIC ACID 500 MG TABLET PO SCH ×2 (09:10→20:58)
[2017-10-13] MEDS: FINASTERIDE 5 MG TABLET PO SCH (09:10)
[2017-10-13] MEDS: ATORVASTATIN 10 MG TABLET PO SCH (09:10)
[2017-10-13] MEDS: ALFUZOSIN 10 MG TABLET PO SCH (09:10)
[2017-10-13] MEDS: AMIODARONE 200 MG TABLET PO SCH ×2 (09:10→20:58)
[2017-10-13] MEDS: PANTOPRAZOLE 40 MG TABLET PO SCH (09:10)
[2017-10-13] MEDS: METOPROLOL SUCCINATE XL 50 MG TABLET PO SCH ×2 (09:10→20:58)
[2017-10-13] MEDS: INSULIN LISPRO 100 UNIT/ML SUBCUT SCH ×7 (09:13→21:44)
[2017-10-13] MEDS: SKIN HEALING OINT (AQUAPHOR) 50 GM TUBE TOP SCH (09:13)
[2017-10-13] MEDS: INSULIN GLARGINE 100 UNIT/ML SUBCUT SCH ×2 (09:13→17:13)
[2017-10-13] MEDS: AMPICILLIN INJ 1,000 MG in SODIUM CHLORIDE 0.9% 50 ML IV SCH ×2 (10:52→20:58)
[2017-10-13] MEDS: HEPARIN DRIP 25,000 UNITS/500 ML PREMIX IV SCH (19:30)
[2017-10-14] MEDS: ALBUTEROL/IPRATROPIUM 3 ML NEB RESP TX SCH ×4 (00:10→19:56)
[2017-10-14] MEDS: DILTIAZEM INJ 100 MG in SODIUM CHLORIDE 0.9% 100 ML IV SCH (03:47)
[2017-10-14 06:15] LABS: Basophils # 0.1 10*3/uL (0.0-0.2); Basophils % 0.5 % (0.0-0.8); Eosinophils # 0.2 10*3/uL (0.0-0.87); Hematocrit 28.6 VOL% (42.0-52.0); Hemoglobin 9.1 GM/DL (14.0-18.0); Immature Granulocytes % 0.4 %; Immature Granulocytes Absolute 0.04 #; Lymphocytes # 1.4 10*3/uL (1.4-4.0); Lymphocytes % 15.6 % (21.2-54.2); Mean Corpuscular HGB Conc 31.8 GM/DL (32-36); Mean Corpuscular Hemoglobin 31 PG (27-34); Mean Corpuscular Volume 98.3 FL (87-102); Mean Platelet Volume 9.5 FL (9.6-12.0); Monocytes # 1.1 10*3/uL (0.11-0.8); Neutrophils # 6.4 10*3/uL (1.4-7.4); Neutrophils % 69.5 % (38.7-73.9); Platelet Count 290 T/CUMM (130-400); Red Blood Count 2.91 MC/CUMM (3.8-5.5); Red Cell Distribution Width 12.4 % (9.3-17.3); White Blood Count 9.2 T/CUMM (4-12)
[2017-10-14] MEDS: GABAPENTIN 300 MG CAPSULE PO SCH ×3 (06:17→22:06)
[2017-10-14 06:40] LABS: Albumin 2.3 G/DL (3.4-5.0); Bilirubin,Total 0.8 MG/DL (0.2-1.0); Calcium 8.5 MG/DL (8.5-10.1); Potassium 4.4 MMOL/L (3.5-5.1); Total Protein 6.3 G/DL (6.4-8.3)
[2017-10-14] MEDS: MULTIVITAMIN (CENTRUM) TABLET PO SCH (08:49)
[2017-10-14] MEDS: ALFUZOSIN 10 MG TABLET PO SCH (08:49)
[2017-10-14] MEDS: ATORVASTATIN 10 MG TABLET PO SCH (08:49)
[2017-10-14] MEDS: LISINOPRIL 10 MG TABLET PO SCH (08:49)
[2017-10-14] MEDS: ISOSORBIDE DINITRATE 20 MG TABLET PO SCH ×2 (08:49→22:07)
[2017-10-14] MEDS: ASCORBIC ACID 500 MG TABLET PO SCH ×2 (08:49→22:06)
[2017-10-14] MEDS: hydroCHLOROthiazide 12.5 MG CAPSULE PO SCH (08:49)
[2017-10-14] MEDS: METOPROLOL SUCCINATE XL 50 MG TABLET PO SCH ×2 (08:49→22:06)
[2017-10-14] MEDS: ASPIRIN 325 MG TABLET PO SCH (08:49)
[2017-10-14] MEDS: PANTOPRAZOLE 40 MG TABLET PO SCH (08:49)
[2017-10-14] MEDS: FERROUS SULFATE 325 MG TABLET PO SCH (08:49)
[2017-10-14] MEDS: buPROPion SR 150 MG TABLET PO SCH (08:49)
[2017-10-14] MEDS: AMIODARONE 200 MG TABLET PO SCH ×2 (08:49→22:07)
[2017-10-14] MEDS: FINASTERIDE 5 MG TABLET PO SCH (08:49)
[2017-10-14] MEDS: CILOSTAZOL 50 MG TABLET PO SCH ×2 (08:49→22:06)
[2017-10-14] MEDS: INSULIN GLARGINE 100 UNIT/ML SUBCUT SCH ×2 (08:52→17:22)
[2017-10-14] MEDS: SKIN HEALING OINT (AQUAPHOR) 50 GM TUBE TOP SCH (08:52)
[2017-10-14] MEDS: INSULIN LISPRO 100 UNIT/ML SUBCUT SCH ×7 (08:52→22:08)
[2017-10-14] MEDS: AMPICILLIN INJ 1,000 MG in SODIUM CHLORIDE 0.9% 100 ML IV SCH ×2 (11:51→22:06)
[2017-10-14 18:29] LABS: INR 1.9; PT Patient Result 19.3 SECS
[2017-10-14 18:31] LABS: Partial Thromboplastin Time 50.2 SECS (0-40)
[2017-10-14] MEDS: HEPARIN DRIP 25,000 UNITS/500 ML PREMIX IV SCH (22:07)
[2017-10-15] MEDS: ALBUTEROL/IPRATROPIUM 3 ML NEB RESP TX SCH ×4 (00:58→20:39)
[2017-10-15 05:00] LABS: Basophils % 0.2 % (0.0-0.8); Eosinophils # 0.2 10*3/uL (0.0-0.87); Eosinophils % 1.5 % (0.00-10.9); Hematocrit 27.7 VOL% (42.0-52.0); Hemoglobin 9.2 GM/DL (14.0-18.0); Immature Granulocytes % 0.6 %; Immature Granulocytes Absolute 0.06 #; Lymphocytes # 1.3 10*3/uL (1.4-4.0); Lymphocytes % 13.2 % (21.2-54.2); Mean Corpuscular HGB Conc 33.2 GM/DL (32-36); Mean Corpuscular Hemoglobin 32 PG (27-34); Mean Corpuscular Volume 95.5 FL (87-102); Mean Platelet Volume 9.4 FL (9.6-12.0); Monocytes % 10.4 % (1.7-12.7); Neutrophils # 7.3 10*3/uL (1.4-7.4); Neutrophils % 74.1 % (38.7-73.9); Platelet Count 298 T/CUMM (130-400); Red Cell Distribution Width 12.6 % (9.3-17.3); White Blood Count 9.9 T/CUMM (4-12)
[2017-10-15 05:08] LABS: INR 1.7; PT Patient Result 17.3 SECS
[2017-10-15 05:19] LABS: Partial Thromboplastin Time 45.5 SECS (0-40)
[2017-10-15 05:48] LABS: Calcium 8.5 MG/DL (8.5-10.1); Osmolality,Calculated 273.2 MOS/KG (273-304); Potassium 4.5 MMOL/L (3.5-5.1)
[2017-10-15] MEDS: DILTIAZEM INJ 100 MG in SODIUM CHLORIDE 0.9% 100 ML IV SCH (05:50)
[2017-10-15] MEDS: GABAPENTIN 300 MG CAPSULE PO SCH ×3 (05:51→21:44)
[2017-10-15] MEDS: INSULIN LISPRO 100 UNIT/ML SUBCUT SCH ×7 (10:11→20:55)
[2017-10-15] MEDS: INSULIN GLARGINE 100 UNIT/ML SUBCUT SCH ×2 (10:11→17:02)
[2017-10-15] MEDS: CILOSTAZOL 50 MG TABLET PO SCH ×2 (10:12→20:57)
[2017-10-15] MEDS: ISOSORBIDE DINITRATE 20 MG TABLET PO SCH ×2 (10:12→20:55)
[2017-10-15] MEDS: MULTIVITAMIN (CENTRUM) TABLET PO SCH (10:12)
[2017-10-15] MEDS: buPROPion SR 150 MG TABLET PO SCH (10:12)
[2017-10-15] MEDS: ALFUZOSIN 10 MG TABLET PO SCH (10:12)
[2017-10-15] MEDS: LISINOPRIL 10 MG TABLET PO SCH (10:13)
[2017-10-15] MEDS: FINASTERIDE 5 MG TABLET PO SCH (10:13)
[2017-10-15] MEDS: ASPIRIN 325 MG TABLET PO SCH (10:13)
[2017-10-15] MEDS: FERROUS SULFATE 325 MG TABLET PO SCH (10:13)
[2017-10-15] MEDS: ASCORBIC ACID 500 MG TABLET PO SCH ×2 (10:13→20:55)
[2017-10-15] MEDS: METOPROLOL SUCCINATE XL 50 MG TABLET PO SCH ×2 (10:13→20:55)
[2017-10-15] MEDS: ATORVASTATIN 10 MG TABLET PO SCH (10:13)
[2017-10-15] MEDS: PANTOPRAZOLE 40 MG TABLET PO SCH (10:13)
[2017-10-15] MEDS: AMIODARONE 200 MG TABLET PO SCH ×2 (10:14→20:55)
[2017-10-15] MEDS: SKIN HEALING OINT (AQUAPHOR) 50 GM TUBE TOP SCH (10:14)
[2017-10-15] MEDS: hydroCHLOROthiazide 12.5 MG CAPSULE PO SCH (10:14)
[2017-10-15 10:56] LABS: Eosinophils,Pleural Fluid 3 %; Lymphocytes,Pleural Fluid 9 %; Monocytes,Pleural Fluid 8 %; Neutrophils,Pleural Fluid 80 %
[2017-10-15 10:57] LABS: RBC,Pleural Fluid 2834 T/CUMM
[2017-10-15] MEDS: AMPICILLIN INJ 1,000 MG in SODIUM CHLORIDE 0.9% 100 ML IV SCH ×2 (11:00→23:05)
[2017-10-15 11:10] LABS: Total Protein,Pleural Fluid 3.8 G/DL
[2017-10-15] MEDS: HEPARIN DRIP 25,000 UNITS/500 ML PREMIX IV SCH (16:40)
[2017-10-15] MEDS: AMPICILLIN INJ 1,000 MG in SODIUM CHLORIDE 0.9% 50 ML IV SCH (21:53)
[2017-10-16] MEDS: ALBUTEROL/IPRATROPIUM 3 ML NEB RESP TX SCH ×4 (01:50→20:10)
[2017-10-16] MEDS: DILTIAZEM INJ 100 MG in SODIUM CHLORIDE 0.9% 100 ML IV SCH (03:02)
[2017-10-16 05:04] LABS: Basophils % 0.4 % (0.0-0.8); Eosinophils # 0.2 10*3/uL (0.0-0.87); Eosinophils % 2.3 % (0.00-10.9); Immature Granulocytes % 0.5 %; Immature Granulocytes Absolute 0.05 #; Lymphocytes # 1.5 10*3/uL (1.4-4.0); Lymphocytes % 16.3 % (21.2-54.2); Mean Corpuscular HGB Conc 32.1 GM/DL (32-36); Mean Corpuscular Hemoglobin 32 PG (27-34); Mean Corpuscular Volume 98.2 FL (87-102); Mean Platelet Volume 8.9 FL (9.6-12.0); Monocytes % 10.8 % (1.7-12.7); Neutrophils # 6.4 10*3/uL (1.4-7.4); Neutrophils % 69.7 % (38.7-73.9); Platelet Count 273 T/CUMM (130-400); Red Blood Count 2.85 MC/CUMM (3.8-5.5); Red Cell Distribution Width 12.6 % (9.3-17.3); White Blood Count 9.2 T/CUMM (4-12)
[2017-10-16 05:40] LABS: Calcium 8.5 MG/DL (8.5-10.1); Osmolality,Calculated 276.2 MOS/KG (273-304); Potassium 4.5 MMOL/L (3.5-5.1)
[2017-10-16] MEDS: GABAPENTIN 300 MG CAPSULE PO SCH ×3 (06:15→22:27)
[2017-10-16] MEDS: INSULIN LISPRO 100 UNIT/ML SUBCUT SCH ×7 (08:24→20:24)
[2017-10-16] MEDS: INSULIN GLARGINE 100 UNIT/ML SUBCUT SCH ×2 (09:09→17:01)
[2017-10-16] MEDS: MULTIVITAMIN (CENTRUM) TABLET PO SCH (09:09)
[2017-10-16] MEDS: LISINOPRIL 10 MG TABLET PO SCH (09:10)
[2017-10-16] MEDS: FERROUS SULFATE 325 MG TABLET PO SCH (09:10)
[2017-10-16] MEDS: ALFUZOSIN 10 MG TABLET PO SCH (09:10)
[2017-10-16] MEDS: ATORVASTATIN 10 MG TABLET PO SCH (09:10)
[2017-10-16] MEDS: SKIN HEALING OINT (AQUAPHOR) 50 GM TUBE TOP SCH (09:10)
[2017-10-16] MEDS: AMIODARONE 200 MG TABLET PO SCH ×2 (09:10→21:09)
[2017-10-16] MEDS: buPROPion SR 150 MG TABLET PO SCH (09:10)
[2017-10-16] MEDS: CILOSTAZOL 50 MG TABLET PO SCH (09:10)
[2017-10-16] MEDS: ASCORBIC ACID 500 MG TABLET PO SCH ×2 (09:10→21:09)
[2017-10-16] MEDS: FINASTERIDE 5 MG TABLET PO SCH (09:10)
[2017-10-16] MEDS: ISOSORBIDE DINITRATE 20 MG TABLET PO SCH ×2 (09:10→21:09)
[2017-10-16] MEDS: METOPROLOL SUCCINATE XL 50 MG TABLET PO SCH ×2 (09:10→21:09)
[2017-10-16] MEDS: hydroCHLOROthiazide 12.5 MG CAPSULE PO SCH (09:10)
[2017-10-16] MEDS: ASPIRIN 325 MG TABLET PO SCH (09:10)
[2017-10-16] MEDS: PANTOPRAZOLE 40 MG TABLET PO SCH (09:10)
[2017-10-16] MEDS: HEPARIN DRIP 25,000 UNITS/500 ML PREMIX IV SCH ×2 (09:16→23:30)
[2017-10-16] MEDS: AMPICILLIN INJ 1,000 MG in SODIUM CHLORIDE 0.9% 100 ML IV SCH ×2 (10:13→22:28)
[2017-10-16] MEDS: DICLOFENAC 1.3% PATCH 5/PACK TRANSDERM SCH ×2 (12:55→21:13)
[2017-10-16] MEDS ORDERED: DIGOXIN 0.5 MG/2 ML AMP IV ONE (17:27)
[2017-10-16] MEDS ORDERED: DILTIAZEM 30 MG TABLET PO ONE (17:30)
[2017-10-16] MEDS: DILTIAZEM CD 120 MG CAPSULE PO SCH (21:08)
[2017-10-17] MEDS: ALBUTEROL/IPRATROPIUM 3 ML NEB RESP TX SCH ×4 (00:19→18:55)
[2017-10-17 05:16] LABS: Basophils # 0.1 10*3/uL (0.0-0.2); Basophils % 0.5 % (0.0-0.8); Eosinophils # 0.2 10*3/uL (0.0-0.87); Eosinophils % 2.4 % (0.00-10.9); Hematocrit 27.6 VOL% (42.0-52.0); Hemoglobin 8.8 GM/DL (14.0-18.0); Immature Granulocytes % 0.6 %; Immature Granulocytes Absolute 0.06 #; Lymphocytes # 1.7 10*3/uL (1.4-4.0); Lymphocytes % 17.7 % (21.2-54.2); Mean Corpuscular HGB Conc 31.9 GM/DL (32-36); Mean Corpuscular Hemoglobin 32 PG (27-34); Mean Corpuscular Volume 99.3 FL (87-102); Monocytes % 10.1 % (1.7-12.7); Neutrophils # 6.7 10*3/uL (1.4-7.4); Neutrophils % 68.7 % (38.7-73.9); Platelet Count 301 T/CUMM (130-400); Red Blood Count 2.78 MC/CUMM (3.8-5.5); Red Cell Distribution Width 12.7 % (9.3-17.3); White Blood Count 9.7 T/CUMM (4-12)
[2017-10-17] MEDS: GABAPENTIN 300 MG CAPSULE PO SCH ×3 (05:17→22:27)
[2017-10-17 05:51] LABS: Calcium 8.3 MG/DL (8.5-10.1); Osmolality,Calculated 275.1 MOS/KG (273-304); Potassium 4.7 MMOL/L (3.5-5.1)
[2017-10-17] MEDS: LISINOPRIL 10 MG TABLET PO SCH (09:07)
[2017-10-17] MEDS: hydroCHLOROthiazide 12.5 MG CAPSULE PO SCH (09:07)
[2017-10-17] MEDS: ISOSORBIDE DINITRATE 20 MG TABLET PO SCH ×2 (09:07→22:33)
[2017-10-17] MEDS: ATORVASTATIN 10 MG TABLET PO SCH ×2 (09:07→22:27)
[2017-10-17] MEDS: ASPIRIN CHEW 81 MG TABLET PO SCH (09:08)
[2017-10-17] MEDS: buPROPion SR 150 MG TABLET PO SCH (09:08)
[2017-10-17] MEDS: AMIODARONE 200 MG TABLET PO SCH ×2 (09:10→22:26)
[2017-10-17] MEDS: DILTIAZEM CD 120 MG CAPSULE PO SCH (09:11)
[2017-10-17] MEDS: ALFUZOSIN 10 MG TABLET PO SCH (09:12)
[2017-10-17] MEDS: ASCORBIC ACID 500 MG TABLET PO SCH ×2 (09:12→22:26)
[2017-10-17] MEDS: PANTOPRAZOLE 40 MG TABLET PO SCH (09:12)
[2017-10-17] MEDS: MULTIVITAMIN (CENTRUM) TABLET PO SCH (09:12)
[2017-10-17] MEDS: METOPROLOL SUCCINATE XL 50 MG TABLET PO SCH ×2 (09:13→22:27)
[2017-10-17] MEDS: FINASTERIDE 5 MG TABLET PO SCH (09:13)
[2017-10-17] MEDS: INSULIN LISPRO 100 UNIT/ML SUBCUT SCH ×7 (09:14→22:28)
[2017-10-17] MEDS: INSULIN GLARGINE 100 UNIT/ML SUBCUT SCH ×2 (09:15→19:01)
[2017-10-17] MEDS ORDERED: DIGOXIN 0.5 MG/2 ML AMP IV ONE (09:55)
[2017-10-17] MEDS: SKIN HEALING OINT (AQUAPHOR) 50 GM TUBE TOP SCH (10:46)
[2017-10-17 11:26] LABS: INR 1.2; PT Patient Result 12.7 SECS
[2017-10-17] MEDS: AMPICILLIN INJ 1,000 MG in SODIUM CHLORIDE 0.9% 100 ML IV SCH (12:08)
[2017-10-17] MEDS: FERROUS SULFATE 325 MG TABLET PO SCH (12:08)
[2017-10-17] MEDS: DICLOFENAC 1.3% PATCH 5/PACK TRANSDERM SCH ×2 (12:12→22:28)
[2017-10-17] MEDS: HEPARIN DRIP 25,000 UNITS/500 ML PREMIX IV SCH (14:58)
[2017-10-17] MEDS ORDERED: MAGNESIUM HYDROXIDE SUSP 30 ML UDCUP PO ONE (16:09)
[2017-10-17] MEDS: DIGOXIN 0.125 MG TABLET PO SCH (17:23)
[2017-10-17] MEDS: DILTIAZEM CD 180 MG CAPSULE PO SCH (22:25)
[2017-10-17] MEDS: DOCUSATE SODIUM 100 MG CAPSULE PO SCH (22:27)
[2017-10-18] MEDS: ALBUTEROL/IPRATROPIUM 3 ML NEB RESP TX SCH ×4 (00:09→19:18)
[2017-10-18] MEDS: AMPICILLIN INJ 1,000 MG in SODIUM CHLORIDE 0.9% 100 ML IV SCH ×3 (00:35→22:00)
[2017-10-18 05:37] LABS: Basophils % 0.4 % (0.0-0.8); Eosinophils # 0.2 10*3/uL (0.0-0.87); Eosinophils % 1.8 % (0.00-10.9); Hematocrit 27.6 VOL% (42.0-52.0); Hemoglobin 9.1 GM/DL (14.0-18.0); Immature Granulocytes % 0.7 %; Immature Granulocytes Absolute 0.07 #; Lymphocytes # 1.8 10*3/uL (1.4-4.0); Lymphocytes % 17.5 % (21.2-54.2); Mean Corpuscular Hemoglobin 32 PG (27-34); Mean Corpuscular Volume 96.8 FL (87-102); Monocytes % 9.2 % (1.7-12.7); Neutrophils # 7.3 10*3/uL (1.4-7.4); Neutrophils % 70.4 % (38.7-73.9); Platelet Count 362 T/CUMM (130-400); Red Blood Count 2.85 MC/CUMM (3.8-5.5); Red Cell Distribution Width 12.8 % (9.3-17.3); White Blood Count 10.3 T/CUMM (4-12)
[2017-10-18 05:51] LABS: INR 1.2; PT Patient Result 12.7 SECS
[2017-10-18 06:18] LABS: Calcium 8.4 MG/DL (8.5-10.1); Osmolality,Calculated 268.4 MOS/KG (273-304); Potassium 4.7 MMOL/L (3.5-5.1)
[2017-10-18] MEDS: HEPARIN DRIP 25,000 UNITS/500 ML PREMIX IV SCH ×2 (06:25→21:52)
[2017-10-18] MEDS: GABAPENTIN 300 MG CAPSULE PO SCH ×3 (06:29→21:44)
[2017-10-18] MEDS: INSULIN GLARGINE 100 UNIT/ML SUBCUT SCH ×2 (08:29→18:19)
[2017-10-18] MEDS: INSULIN LISPRO 100 UNIT/ML SUBCUT SCH ×6 (08:29→18:18)
[2017-10-18] MEDS: ALFUZOSIN 10 MG TABLET PO SCH (08:30)
[2017-10-18] MEDS: MULTIVITAMIN (CENTRUM) TABLET PO SCH (08:30)
[2017-10-18] MEDS: buPROPion SR 150 MG TABLET PO SCH (08:30)
[2017-10-18] MEDS: ISOSORBIDE DINITRATE 20 MG TABLET PO SCH ×2 (08:31→21:45)
[2017-10-18] MEDS: DOCUSATE SODIUM 100 MG CAPSULE PO SCH ×2 (08:31→21:46)
[2017-10-18] MEDS: ASCORBIC ACID 500 MG TABLET PO SCH ×2 (08:31→21:45)
[2017-10-18] MEDS: hydroCHLOROthiazide 12.5 MG CAPSULE PO SCH (08:31)
[2017-10-18] MEDS: METOPROLOL SUCCINATE XL 50 MG TABLET PO SCH ×2 (08:32→21:46)
[2017-10-18] MEDS: DILTIAZEM CD 180 MG CAPSULE PO SCH ×2 (08:32→21:45)
[2017-10-18] MEDS: PANTOPRAZOLE 40 MG TABLET PO SCH (08:33)
[2017-10-18] MEDS: FERROUS SULFATE 325 MG TABLET PO SCH (08:33)
[2017-10-18] MEDS: ASPIRIN CHEW 81 MG TABLET PO SCH (08:33)
[2017-10-18] MEDS: AMIODARONE 200 MG TABLET PO SCH ×2 (08:34→18:01)
[2017-10-18] MEDS: FINASTERIDE 5 MG TABLET PO SCH (08:34)
[2017-10-18] MEDS: SKIN HEALING OINT (AQUAPHOR) 50 GM TUBE TOP SCH (11:41)
[2017-10-18] MEDS: DICLOFENAC 1.3% PATCH 5/PACK TRANSDERM SCH (11:41)
[2017-10-18] MEDS: DIGOXIN 0.125 MG TABLET PO SCH (14:54)
[2017-10-18] MEDS ORDERED: WARFARIN 5 MG TABLET PO SCH ×2 (18:00)
[2017-10-18] MEDS: ATORVASTATIN 10 MG TABLET PO SCH (21:45)
[2017-10-19] MEDS: ALBUTEROL/IPRATROPIUM 3 ML NEB RESP TX SCH ×2 (00:41→07:47)
[2017-10-19] MEDS: DICLOFENAC 1.3% PATCH 5/PACK TRANSDERM SCH ×2 (05:53→09:32)
[2017-10-19] MEDS: INSULIN LISPRO 100 UNIT/ML SUBCUT SCH ×4 (05:53→11:33)
[2017-10-19] MEDS: GABAPENTIN 300 MG CAPSULE PO SCH (06:22)
[2017-10-19 06:48] LABS: Basophils % 0.4 % (0.0-0.8); Eosinophils # 0.1 10*3/uL (0.0-0.87); Eosinophils % 1.2 % (0.00-10.9); Hematocrit 28.6 VOL% (42.0-52.0); Hemoglobin 9.3 GM/DL (14.0-18.0); Lymphocytes # 1.4 10*3/uL (1.4-4.0); Lymphocytes % 13.2 % (21.2-54.2); Mean Corpuscular HGB Conc 32.5 GM/DL (32-36); Mean Corpuscular Hemoglobin 31 PG (27-34); Mean Corpuscular Volume 96.3 FL (87-102); Mean Platelet Volume 9.3 FL (9.6-12.0); Monocytes # 0.9 10*3/uL (0.11-0.8); Monocytes % 8.3 % (1.7-12.7); Neutrophils % 75.9 % (38.7-73.9); Platelet Count 412 T/CUMM (130-400); Red Blood Count 2.97 MC/CUMM (3.8-5.5); Red Cell Distribution Width 12.9 % (9.3-17.3); White Blood Count 10.5 T/CUMM (4-12)
[2017-10-19 06:55] LABS: INR 1.2; PT Patient Result 12.8 SECS
[2017-10-19 07:15] LABS: Calcium 8.4 MG/DL (8.5-10.1); Osmolality,Calculated 266.7 MOS/KG (273-304); Potassium 4.5 MMOL/L (3.5-5.1)
[2017-10-19 08:04] VITALS: BP 144/75
[2017-10-19] MEDS: buPROPion SR 150 MG TABLET PO SCH (09:28)
[2017-10-19] MEDS: MULTIVITAMIN (CENTRUM) TABLET PO SCH (09:28)
[2017-10-19] MEDS: DOCUSATE SODIUM 100 MG CAPSULE PO SCH (09:28)
[2017-10-19] MEDS: FINASTERIDE 5 MG TABLET PO SCH (09:28)
[2017-10-19] MEDS: ISOSORBIDE DINITRATE 20 MG TABLET PO SCH (09:28)
[2017-10-19] MEDS: DILTIAZEM CD 180 MG CAPSULE PO SCH (09:28)
[2017-10-19] MEDS: ASCORBIC ACID 500 MG TABLET PO SCH (09:28)
[2017-10-19] MEDS: hydroCHLOROthiazide 12.5 MG CAPSULE PO SCH (09:29)
[2017-10-19] MEDS: ASPIRIN CHEW 81 MG TABLET PO SCH (09:29)
[2017-10-19] MEDS: FERROUS SULFATE 325 MG TABLET PO SCH (09:29)
[2017-10-19] MEDS: ALFUZOSIN 10 MG TABLET PO SCH (09:29)
[2017-10-19] MEDS: METOPROLOL SUCCINATE XL 50 MG TABLET PO SCH (09:30)
[2017-10-19] MEDS: AMIODARONE 200 MG TABLET PO SCH (09:30)
[2017-10-19] MEDS ORDERED: INFLUENZA VIRUS VACCINE 0.5 ML SYRINGE IM ONE (09:30)
[2017-10-19] MEDS: PANTOPRAZOLE 40 MG TABLET PO SCH (09:30)
[2017-10-19] MEDS: INSULIN GLARGINE 100 UNIT/ML SUBCUT SCH (09:30)
[2017-10-19] MEDS: SKIN HEALING OINT (AQUAPHOR) 50 GM TUBE TOP SCH (09:32)
[2017-10-19] MEDS ORDERED: ALBUTEROL/IPRATROPIUM 3 ML NEB RESP TX ONE (10:35)
[2017-10-19] MEDS: AMPICILLIN INJ 1,000 MG in SODIUM CHLORIDE 0.9% 100 ML IV SCH (11:32)
[2017-10-19] MEDS ORDERED: RIVAROXABAN 15 MG TABLET PO SCH (17:00)
== END 2017-10-19 11:10 | disposition expired | DRG 252 ==
LOC: EDUNIT# → EDBD → N.ED 11:53 → SUATTDRO 16:27 → SUPCPDRO 16:27 → N.EDINP 16:27 → N.CC 18:16 → N.TELEN 10-10 18:43
PROVIDERS: ADMIT Internal Medicine Geriatric Medicine; ATTEND Internal Medicine